=== PATIENT | male | born 1965 | race Caucasian/White ===

== ENCOUNTER 2021-05-28 09:30 | Inpatient (IN) ==
--- NOTE | 2021-05-28 09:35 | Emergency Department Note ---
Impression & Plan DKA (diabetic ketoacidosis), Hyperlipidemia, Pneumonia due to COVID-19 virus, MARYLIN (acute kidney injury), Nausea & vomiting, Acute dehydration ED Provider Note NAME: TAMIR CAVAZOS AGE: 56 SEX: M : 1965 ARRIVES VIA: Ambulance INFORMANT: Patient, ED PROVIDER(S): Quan Mendez MD Chief Complaint: Weakness, nausea, vomiting, shortness of breath HPI: Patient does present with the above complaints. The patient states that he has had symptoms for approximate 10 to 12 days but recently tested positive for Covid approximately 7 days ago. Does feel as though he is short of breath. Patient has had increasing weakness decreased appetite and has had associated nausea vomiting and diarrhea. Patient has any prior history of DVT or PE. No recent travel. The patient is vaccinated for COVID-19 but not booster flu. Patient was trying to take medications at home does not think he has been able to keep them down well. The patient is not had any blood in the vomit or stool. Patient denies any abdominal pain. Patient denies any prior heart or lung history. Patient is a non-smoker and does not wear oxygen. No prior history of recent surgeries or procedures. ROS: See HPI for pertinent positives and negatives. A total of 10 systems were reviewed and otherwise negative. Past medical history: See below Surgical history: See below Social history: See below Physical Exam: GENERAL: Fatigued in appearance,NAD, wearing glasses, wearing a mask, non-toxic. EYE EXAM: Normal conjunctiva. PERRL, no anisocoria and EOM's grossly intact w/o pain. OROPHARYNX: Moist mucus membranes. Grossly normal dentition. NECK: Supple, no nuchal rigidity, no adenopathy, non-tender. No signs of meningismus. LUNGS: Clear to auscultation. Normal chest wall mechanics. HEART: Tachycardic and regular, no MRG. ABDOMEN: Abdomen soft, non-tender, normo-active bowel sounds, no masses, no rebound or guarding. BACK: No CVA TTP. SKIN: No rashes and no bruising. UPPER EXTREMITIES: Upper extremities are grossly normal. LOWER EXTREMITIES: Grossly normal, no edema. Negative Homans' sign bilaterally NEURO EXAM: A&O x3, cranial nerves II-XII grossly intact, normal speech, moves all 4 extremities on command w/o issue. Differential diagnoses: Infection, dehydration, metabolic abnormality, hypo/hyperglycemia, electrolyte disturbance, anemia, hypoxia, cardiac sources, intracerebral event, toxicologic, neurologic, as well as other pathologies. Course: Patient was seen and evaluated the bedside. Full history physical exam was performed. EKG interpreted by me Sinus tachycardia, rate of 120, normal intervals, left axis deviation. Imaging Studies: See Below Cardiac monitoring: An order was placed for continuous cardiac monitoring. The monitor shows a rate of 115 with tachycardic and regular rhythm. MDM: Patient does present for nausea vomiting and recent Covid illness. Blood work was obtained the patient was treated symptomatically. The patient received 800 cc of IV fluids in route. The patient was ordered additional 1500. The patient has a normal white count and normal hemoglobin with a normal platelet count. The patient blood work does show concern for anion gap metabolic acidosis with a bicarb of 6. Patient does have elevated blood glucose. Given this I did order DKA protocols including an insulin drip. Upon reassessment the patient states that he was feeling relatively well. Urinalysis does not show evidence of infection but does show ketones. Patient does have positive Covid. Troponin not detectable. Lactate is 3.5. I believe that the patient's DKA is likely the contributory factor of the patient's shortness of breath and somewhat the Covid. Believe PE to be less likely as the patient has no signs or stigmata of DVT on exam. The patient is not hypoxic. Patient's heart rate has improved with IV fluids. The patient was ordered twice maintenance with replacement of KCl. I did speak with the on-call hospitalist Dr. Travis and the patient was admitted to the medicine service. VBG did resulted was 7.05. PCO2 of 29. Additional IV fluids ordered Critical Care: I have personally spent 75 minutes of critical care time in direct management of this patient. This includes bedside care, interpretation of diagnostic studies, and testing, discussion with consultants, patient, and family members, and other require inpatient management activities. This 75 minutes is in excess of all separately billable procedures. 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 [employer] Feels Safe at Home: Yes Immunizations: Vaccinated for COVID-19 but without booster or flu vaccination Home Meds Home Medications Medication Instructions Recorded Confirmed aspirin 81 mg tablet 81 mg PO DAILY 05/28/21 05/28/21 metformin 500 mg tablet,extended 500 mg PO BID 05/28/21 05/28/21 release 24 hr rosuvastatin 5 mg tablet 5 mg PO DAILY 05/28/21 05/28/21 Results & Data (ED) Vital Signs Vital Signs - 24 hr 05/28/21 09:44 05/28/21 09:50 05/28/21 09:51 Temperature 36.8 C Temperature Source Oral Pulse Rate 119 H 115 H 115 H Pulse Rate [Apical] 119 H Pulse Rate from SpO2 Sensor Respiratory Rate 22 20 22 Respiratory Effort / Characteristics Non-Labored Spontaneous Respiratory Depth Normal Respiratory Pattern Regular Blood Pressure 137/83 137/83 Blood Pressure [Right Arm] 137/83 Blood Pressure Mean 101 101 Blood Pressure Mean [Right Arm] 101 Pulse Oximetry 97 96 100 Oxygen Delivery Method Room Air Room Air Room Air Sepsis Recent Fever Within 48 Hours No Sepsis New/Unexplained Change in Mental Status No Sepsis Action Taken by Nursing No Action Required 05/28/21 10:07 05/28/21 10:30 05/28/21 11:30 Temperature Temperature Source Pulse Rate 113 H 111 H Pulse Rate [Apical] Pulse Rate from SpO2 Sensor 113 H 112 H Respiratory Rate 19 18 Respiratory Effort / Characteristics Respiratory Depth Respiratory Pattern Blood Pressure 134/81 149/95 H Blood Pressure [Right Arm] Blood Pressure Mean 98 113 Blood Pressure Mean [Right Arm] Pulse Oximetry 98 99 Oxygen Delivery Method Sepsis Recent Fever Within 48 Hours Sepsis New/Unexplained Change in Mental Status Sepsis Action Taken by Nursing 05/28/21 12:00 05/28/21 12:30 05/28/21 13:00 Temperature Temperature Source Pulse Rate 116 H 113 H 116 H Pulse Rate [Apical] Pulse Rate from SpO2 Sensor 119 H 113 H 116 H Respiratory Rate 22 20 21 Respiratory Effort / Characteristics Respiratory Depth Respiratory Pattern Blood Pressure 150/90 H 142/93 H Blood Pressure [Right Arm] Blood Pressure Mean 110 109 Blood Pressure Mean [Right Arm] Pulse Oximetry 100 99 99 Oxygen Delivery Method Sepsis Recent Fever Within 48 Hours Sepsis New/Unexplained Change in Mental Status Sepsis Action Taken by Nursing 05/28/21 13:30 Temperature Temperature Source Pulse Rate 112 H Pulse Rate [Apical] Pulse Rate from SpO2 Sensor 111 H Respiratory Rate 16 Respiratory Effort / Characteristics Respiratory Depth Respiratory Pattern Blood Pressure 130/95 Blood Pressure [Right Arm] Blood Pressure Mean 106 Blood Pressure Mean [Right Arm] Pulse Oximetry 99 Oxygen Delivery Method Sepsis Recent Fever Within 48 Hours Sepsis New/Unexplained Change in Mental Status Sepsis Action Taken by Jail Medications Current Medication List: was personally reviewed by me Laboratory Data Attestation: I reviewed the patient's lab results. Result diagrams: 05/28/21 09:50 05/28/21 11:06 Lab Results 05/28/21 05/28/21 05/28/21 Range/Units 09:50 09:50 09:58 WBC 8.45 (4.8-10.8) K/uL RBC 5.56 (4.7-6.1) M/uL Hgb 17.7 (14.0-18.0) g/dL Hct 52.5 H (42-52) % MCV 94.4 (80-100) fL MCH 31.8 (25-34) pg MCHC 33.7 (32-36) g/dL RDW Std Deviation 44.4 (36.4-46.3) fL RDW Coeff of Davon 12.7 (11.5-14.5) % Plt Count 252 (130-400) K/uL MPV 10.8 H (7.4-10.4) fL Immature Gran % (Auto) 1.5 % Neut % (Auto) 79.3 % Lymph % (Auto) 13.7 % [place] % (Auto) 5.4 % Eos % (Auto) 0.0 % Baso % (Auto) 0.1 % Neut # (Auto) 6.69 H (1.4-6.5) K/uL Lymph # (Auto) 1.16 L (1.2-3.4) K/uL [place] # (Auto) 0.46 (0.11-0.59) K/uL Eos # (Auto) 0.00 (0-0.5) K/uL Baso # (Auto) 0.01 (0-0.2) K/uL Immature Gran # (Auto) 0.13 H (0.00-0.02) K/uL VBG pH (7.36-7.41) VBG pCO2 (38-50) mmHg VBG pO2 mmHg VBG HCO3 mmol/L VBG O2 Saturation % VBG Base Excess mEq/L Sodium 137 (136-145) mmol/L Potassium 4.2 (3.5-5.1) mmol/L Chloride 103 (98-107) mmol/L Carbon Dioxide 6 L* (21-32) mmol/L Anion Gap 28.0 H (3-11) BUN 15 (7-18) mg/dl Creatinine 1.52 H (0.6-1.4) mg/dl Est Cr Clr Drug Dosing 63.1 ml/min Est GFR ( Amer) 58.5 ml/min Est GFR (Non-Af Amer) 50.5 ml/min BUN/Creatinine Ratio 9.8 L (10-20) Glucose 454 H* (70-99) mg/dl POC Glucose (70-99) mg/dl Osmolality 341 H (280-300) mOsm/kg Lactate (0.4-2.0) mmol/L Calcium 9.1 (8.5-10.1) mg/dl Phosphorus (2.5-4.9) mg/dl Magnesium 2.1 (1.8-2.4) mg/dl Total Bilirubin 0.4 (0.2-1) mg/dl AST 12 L (15-37) U/L ALT 30 (12-78) Alkaline Phosphatase 102 (45-117) U/L Troponin I < 0.015 (0-0.045) ng/ml Total Protein 8.4 H (6.4-8.2) gm/dl Albumin 3.6 (3.4-5.0) gm/dl Globulin 4.8 H (2.5-4.0) gm/dl Albumin/Globulin Ratio 0.7 L (0.9-2) Beta-Hydroxybutyric Acd Not Reportable TSH 1.390 (0.300-4.500) uIu/ml Urine Color Urine Appearance (Clear) Urine pH (4.5-7.5) Ur Specific Norco (1.000-1.030) Urine Protein (Negative) Urine Glucose (UA) (Negative) Urine Ketones (Negative) Urine Blood (Negative) Urine Nitrite (Negative) Urine Bilirubin (Negative) Urine Urobilinogen (Negative) Ur Leukocyte Esterase (Negative) SARS-CoV-2 (PCR) (Negative) Influenza Type A (PCR) (Neg) Influenza Type B (PCR) (Neg) RSV (RT-PCR) (Neg) 05/28/21 05/28/21 05/28/21 Range/Units 11:02 11:06 11:06 WBC (4.8-10.8) K/uL RBC (4.7-6.1) M/uL Hgb (14.0-18.0) g/dL Hct (42-52) % MCV (80-100) fL MCH (25-34) pg MCHC (32-36) g/dL RDW Std Deviation (36.4-46.3) fL RDW Coeff of Davon (11.5-14.5) % Plt Count (130-400) K/uL MPV (7.4-10.4) fL Immature Gran % (Auto) % Neut % (Auto) % Lymph % (Auto) % [place] % (Auto) % Eos % (Auto) % Baso % (Auto) % Neut # (Auto) (1.4-6.5) K/uL Lymph # (Auto) (1.2-3.4) K/uL [place] # (Auto) (0.11-0.59) K/uL Eos # (Auto) (0-0.5) K/uL Baso # (Auto) (0-0.2) K/uL Immature Gran # (Auto) (0.00-0.02) K/uL VBG pH (7.36-7.41) VBG pCO2 (38-50) mmHg VBG pO2 mmHg VBG HCO3 mmol/L VBG O2 Saturation % VBG Base Excess mEq/L Sodium 137 (136-145) mmol/L Potassium 4.6 (3.5-5.1) mmol/L Chloride 105 (98-107) mmol/L Carbon Dioxide 5 L* (21-32) mmol/L Anion Gap 27.0 H (3-11) BUN 14 (7-18) mg/dl Creatinine 1.26 (0.6-1.4) mg/dl Est Cr Clr Drug Dosing 76.1 ml/min Est GFR ( Amer) 73.4 ml/min Est GFR (Non-Af Amer) 63.3 ml/min BUN/Creatinine Ratio 11.2 (10-20) Glucose 479 H* (70-99) mg/dl POC Glucose 417 H* (70-99) mg/dl Osmolality (280-300) mOsm/kg Lactate 3.5 H* (0.4-2.0) mmol/L Calcium 8.6 (8.5-10.1) mg/dl Phosphorus 4.9 (2.5-4.9) mg/dl Magnesium (1.8-2.4) mg/dl Total Bilirubin (0.2-1) mg/dl AST (15-37) U/L ALT (12-78) Alkaline Phosphatase (45-117) U/L Troponin I (0-0.045) ng/ml Total Protein (6.4-8.2) gm/dl Albumin (3.4-5.0) gm/dl Globulin (2.5-4.0) gm/dl Albumin/Globulin Ratio (0.9-2) Beta-Hydroxybutyric Acd TSH (0.300-4.500) uIu/ml Urine Color Urine Appearance (Clear) Urine pH (4.5-7.5) Ur Specific Nor[place] (1.000-1.030) Urine Protein (Negative) Urine Glucose (UA) (Negative) Urine Ketones (Negative) Urine Blood (Negative) Urine Nitrite (Negative) Urine Bilirubin (Negative) Urine Urobilinogen (Negative) Ur Leukocyte Esterase (Negative) SARS-CoV-2 (PCR) (Negative) Influenza Type A (PCR) (Neg) Influenza Type B (PCR) (Neg) RSV (RT-PCR) (Neg) 05/28/21 05/28/21 05/28/21 Range/Units 11:06 11:06 11:58 WBC (4.8-10.8) K/uL RBC (4.7-6.1) M/uL Hgb (14.0-18.0) g/dL Hct (42-52) % MCV (80-100) fL MCH (25-34) pg MCHC (32-36) g/dL RDW Std Deviation (36.4-46.3) fL RDW Coeff of Davon (11.5-14.5) % Plt Count (130-400) K/uL MPV (7.4-10.4) fL Immature Gran % (Auto) % Neut % (Auto) % Lymph % (Auto) % [place] % (Auto) % Eos % (Auto) % Baso % (Auto) % Neut # (Auto) (1.4-6.5) K/uL Lymph # (Auto) (1.2-3.4) K/uL [place] # (Auto) (0.11-0.59) K/uL Eos # (Auto) (0-0.5) K/uL Baso # (Auto) (0-0.2) K/uL Immature Gran # (Auto) (0.00-0.02) K/uL VBG pH 7.05 L 7.05 L (7.36-7.41) VBG pCO2 29 L (38-50) mmHg VBG pO2 41 mmHg VBG HCO3 8 mmol/L VBG O2 Saturation 67.0 % VBG Base Excess -21.5 mEq/L Sodium (136-145) mmol/L Potassium (3.5-5.1) mmol/L Chloride (98-107) mmol/L Carbon Dioxide (21-32) mmol/L Anion Gap (3-11) BUN (7-18) mg/dl Creatinine (0.6-1.4) mg/dl Est Cr Clr Drug Dosing ml/min Est GFR ( Amer) ml/min Est GFR (Non-Af Amer) ml/min BUN/Creatinine Ratio (10-20) Glucose (70-99) mg/dl POC Glucose 406 H* (70-99) mg/dl Osmolality (280-300) mOsm/kg Lactate (0.4-2.0) mmol/L Calcium (8.5-10.1) mg/dl Phosphorus (2.5-4.9) mg/dl Magnesium (1.8-2.4) mg/dl Total Bilirubin (0.2-1) mg/dl AST (15-37) U/L ALT (12-78) Alkaline Phosphatase (45-117) U/L Troponin I (0-0.045) ng/ml Total Protein (6.4-8.2) gm/dl Albumin (3.4-5.0) gm/dl Globulin (2.5-4.0) gm/dl Albumin/Globulin Ratio (0.9-2) Beta-Hydroxybutyric Acd TSH (0.300-4.500) uIu/ml Urine Color Urine Appearance (Clear) Urine pH (4.5-7.5) Ur Specific Norco (1.000-1.030) Urine Protein (Negative) Urine Glucose (UA) (Negative) Urine Ketones (Negative) Urine Blood (Negative) Urine Nitrite (Negative) Urine Bilirubin (Negative) Urine Urobilinogen (Negative) Ur Leukocyte Esterase (Negative) SARS-CoV-2 (PCR) (Negative) Influenza Type A (PCR) (Neg) Influenza Type B (PCR) (Neg) RSV (RT-PCR) (Neg) 05/28/21 05/28/21 05/28/21 Range/Units 12:48 13:01 13:26 WBC (4.8-10.8) K/uL RBC (4.7-6.1) M/uL Hgb (14.0-18.0) g/dL Hct (42-52) % MCV (80-100) fL MCH (25-34) pg MCHC (32-36) g/dL RDW Std Deviation (36.4-46.3) fL RDW Coeff of Davon (11.5-14.5) % Plt Count (130-400) K/uL MPV (7.4-10.4) fL Immature Gran % (Auto) % Neut % (Auto) % Lymph % (Auto) % [place] % (Auto) % Eos % (Auto) % Baso % (Auto) % Neut # (Auto) (1.4-6.5) K/uL Lymph # (Auto) (1.2-3.4) K/uL [place] # (Auto) (0.11-0.59) K/uL Eos # (Auto) (0-0.5) K/uL Baso # (Auto) (0-0.2) K/uL Immature Gran # (Auto) (0.00-0.02) K/uL VBG pH (7.36-7.41) VBG pCO2 (38-50) mmHg VBG pO2 mmHg VBG HCO3 mmol/L VBG O2 Saturation % VBG Base Excess mEq/L Sodium (136-145) mmol/L Potassium (3.5-5.1) mmol/L Chloride (98-107) mmol/L Carbon Dioxide (21-32) mmol/L Anion Gap (3-11) BUN (7-18) mg/dl Creatinine (0.6-1.4) mg/dl Est Cr Clr Drug Dosing ml/min Est GFR ( Amer) ml/min Est GFR (Non-Af Amer) ml/min BUN/Creatinine Ratio (10-20) Glucose (70-99) mg/dl POC Glucose 389 H* (70-99) mg/dl Osmolality (280-300) mOsm/kg Lactate 3.8 H* (0.4-2.0) mmol/L Calcium (8.5-10.1) mg/dl Phosphorus (2.5-4.9) mg/dl Magnesium (1.8-2.4) mg/dl Total Bilirubin (0.2-1) mg/dl AST (15-37) U/L ALT (12-78) Alkaline Phosphatase (45-117) U/L Troponin I (0-0.045) ng/ml Total Protein (6.4-8.2) gm/dl Albumin (3.4-5.0) gm/dl Globulin (2.5-4.0) gm/dl Albumin/Globulin Ratio (0.9-2) Beta-Hydroxybutyric Acd TSH (0.300-4.500) uIu/ml Urine Color Urine Appearance (Clear) Urine pH (4.5-7.5) Ur Specific [place] (1.000-1.030) Urine Protein (Negative) Urine Glucose (UA) (Negative) Urine Ketones (Negative) Urine Blood (Negative) Urine Nitrite (Negative) Urine Bilirubin (Negative) Urine Urobilinogen (Negative) Ur Leukocyte Esterase (Negative) SARS-CoV-2 (PCR) POSITIVE A* (Negative) Influenza Type A (PCR) Negative (Neg) Influenza Type B (PCR) Negative (Neg) RSV (RT-PCR) Negative (Neg) 05/28/21 Range/Units 13:46 WBC (4.8-10.8) K/uL RBC (4.7-6.1) M/uL Hgb (14.0-18.0) g/dL Hct (42-52) % MCV (80-100) fL MCH (25-34) pg MCHC (32-36) g/dL RDW Std Deviation (36.4-46.3) fL RDW Coeff of Davon (11.5-14.5) % Plt Count (130-400) K/uL MPV (7.4-10.4) fL Immature Gran % (Auto) % Neut % (Auto) % Lymph % (Auto) % [place] % (Auto) % Eos % (Auto) % Baso % (Auto) % Neut # (Auto) (1.4-6.5) K/uL Lymph # (Auto) (1.2-3.4) K/uL [place] # (Auto) (0.11-0.59) K/uL Eos # (Auto) (0-0.5) K/uL Baso # (Auto) (0-0.2) K/uL Immature Gran # (Auto) (0.00-0.02) K/uL VBG pH (7.36-7.41) VBG pCO2 (38-50) mmHg VBG pO2 mmHg VBG HCO3 mmol/L VBG O2 Saturation % VBG Base Excess mEq/L Sodium (136-145) mmol/L Potassium (3.5-5.1) mmol/L Chloride (98-107) mmol/L Carbon Dioxide (21-32) mmol/L Anion Gap (3-11) BUN (7-18) mg/dl Creatinine (0.6-1.4) mg/dl Est Cr Clr Drug Dosing ml/min Est GFR ( Amer) ml/min Est GFR (Non-Af Amer) ml/min BUN/Creatinine Ratio (10-20) Glucose (70-99) mg/dl POC Glucose (70-99) mg/dl Osmolality (280-300) mOsm/kg Lactate (0.4-2.0) mmol/L Calcium (8.5-10.1) mg/dl Phosphorus (2.5-4.9) mg/dl Magnesium (1.8-2.4) mg/dl Total Bilirubin (0.2-1) mg/dl AST (15-37) U/L ALT (12-78) Alkaline Phosphatase (45-117) U/L Troponin I (0-0.045) ng/ml Total Protein (6.4-8.2) gm/dl Albumin (3.4-5.0) gm/dl Globulin (2.5-4.0) gm/dl Albumin/Globulin Ratio (0.9-2) Beta-Hydroxybutyric Acd TSH (0.300-4.500) uIu/ml Urine Color Yellow Urine Appearance Clear (Clear) Urine pH 5.0 (4.5-7.5) Ur Specific [place] 1.031 H (1.000-1.030) Urine Protein 2+ H (Negative) Urine Glucose (UA) 3+ H (Negative) Urine Ketones 4+ H (Negative) Urine Blood 1+ H (Negative) Urine Nitrite Negative (Negative) Urine Bilirubin Negative (Negative) Urine Urobilinogen Negative (Negative) Ur Leukocyte Esterase Negative (Negative) SARS-CoV-2 (PCR) (Negative) Influenza Type A (PCR) (Neg) Influenza Type B (PCR) (Neg) RSV (RT-PCR) (Neg) Administered Medications Insulin Human Regular 250 (units/ Sodium Chloride) 250 mls @ 8.5 mls/hr IV .Q24H [facility]; Protocol Stop: 06/27/21 10:44 Last Admin: 05/28/21 11:13 Dose: 8.5 units/hr, 8.5 mls/hr Documented by: [id number] Cosigned by: [id number] Potassium Chloride/Sodium Chloride (1/2 Nss + 20meq Kcl 1000ml) 20 meq in 1,000 mls @ 250 mls/hr IV .Q4H [facility] Stop: 06/27/21 10:59 Last Admin: 05/28/21 11:55 Dose: 250 mls/hr Documented by: [id number] Insulin Aspart (Insulin Aspart Per Unit) 0 units SC ACHS [facility] Stop: 06/27/21 11:29 Last Admin: 05/28/21 12:13 Dose: Not Given Documented by: [id number] Cosigned by: [id number] Discontinued Medications Sodium Chloride (Nss 1000ml) 1,000 mls @ 999 mls/hr IV .Q1H1M [facility] Stop: 05/28/21 11:00 Last Admin: 05/28/21 09:52 Dose: 999 mls/hr Documented by: [id number] Sodium Chloride (Nss) 500 mls @ 999 mls/hr IV .Q31M [facility] Stop: 05/28/21 10:30 Last Admin: 05/28/21 10:11 Dose: 999 mls/hr Documented by: [id number] Insulin Human Regular (Novolin-R Bolus From Bag) 8 units IV ONE ONE Stop: 05/28/21 11:01 Last Admin: 05/28/21 11:13 Dose: 8 units Documented by: [id number] Cosigned by: [id number] Ondansetron HCl (Ondansetron Inj 2 Mg/Ml 2 Ml Vial) 4 mg IV NOW STA Stop: 05/28/21 09:47 Last Admin: 05/28/21 10:10 Dose: 4 mg Documented by: [id number] Imaging Data Radiologist's Impression: Chest X-Ray 05/28/21 09:46 XR chest 1V portable HISTORY: 56 years-old Male covid acute shortness of breath. COVID Positive. COMPARISON: None TECHNIQUE: Portable AP view of the chest FINDINGS: The cardiomediastinal and hilar silhouettes are within normal limits. There is no pneumothorax, pleural effusion or overt pulmonary edema. Subtle ill-defined peripheral predominant additional opacities of the mid to lower lung zones. The bones appear grossly intact. IMPRESSION: Subtle ill-defined interstitial opacities within the mid to lower lung zones is suspicious for developing viral pneumonia. ACT 112: Negative or not required by law. The above report was generated using voice recognition software. It may contain grammatical, syntax or spelling errors. Electronically signed by: Leonid Cardona M.D. 05/28/2021 10:58 AM Discharge Plan Visit Data Chief Complaint: Illness ED Provider: Quan Mendez Discharge Problem: DKA (diabetic ketoacidosis), Hyperlipidemia, Pneumonia due to COVID-19 virus, MARYLIN (acute kidney injury), Nausea & vomiting, Acute dehydration Forms Stand Alone Forms: My [facility] Prescriptions Prescriptions: No Action metformin 500 mg tablet extended release 24 hr 500 mg PO BID RF: 0 rosuvastatin 5 mg tablet 5 mg PO DAILY RF: 0 aspirin 81 mg Tablet 81 mg PO DAILY RF: 0 Referrals Referrals: PCP,NO [Primary Care Provider] - Discharge Problem: DKA (diabetic ketoacidosis) Qualifiers: Diabetes mellitus type: type 2 Diabetes mellitus complication detail: without coma Qualified Code(s): E11.10 - Type 2 diabetes mellitus with ketoacidosis without coma Hyperlipidemia Qualifiers: Hyperlipidemia type: unspecified Qualified Code(s): E78.5 - Hyperlipidemia, unspecified Nausea & vomiting Qualifiers: Vomiting type: unspecified Qualified Code(s): R11.2 - Nausea with vomiting, unspecified
[2021-05-28] MEDS ORDERED: ONDANSETRON INJ 2 MG/ML 2 ML VIAL IV STA (09:46)
[2021-05-28 09:57] LABS: Hematocrit (blood only) 52.5 % (42-52); Hemoglobin 17.7 g/dL (14.0-18.0); Mean Corpuscular Hemoglobin 31.8 pg (25-34); Mean Corpuscular Hgb Conc 33.7 g/dL (32-36); Mean Corpuscular Volume 94.4 fL (80-100); Mean Platelet Volume 10.8 fL (7.4-10.4); Platelet Count 252 K/uL (130-400); RDW Coefficient of Variation 12.7 % (11.5-14.5); RDW Standard Deviation 44.4 fL (36.4-46.3); Red Blood Count 5.56 M/uL (4.7-6.1); White Blood Count 8.45 K/uL (4.8-10.8)
[2021-05-28] MEDS ORDERED: SODIUM CHLORIDE 0.9% 1000ML 1,000 ML IV SCH (10:00)
[2021-05-28] MEDS ORDERED: SODIUM CHLORIDE 0.9% 500 ML IV SCH (10:00)
[2021-05-28 10:18] LABS: Basophils # (auto) 0.01 K/uL (0-0.2); Basophils % (auto) 0.1 %; Immature Granulocytes # (auto) 0.13 K/uL (0.00-0.02); Immature Granulocytes % (auto) 1.5 %; Lymphocytes # (auto) 1.16 K/uL (1.2-3.4); Lymphocytes % (auto) 13.7 %; Monocytes # (auto) 0.46 K/uL (0.11-0.59); Monocytes % (auto) 5.4 %; Neutrophils # (auto) 6.69 K/uL (1.4-6.5); Neutrophils % (auto) 79.3 %
[2021-05-28 10:38] LABS: Alanine Aminotransferase 30 (12-78); Albumin Globulin Ratio 0.7 (0.9-2); Albumin Level 3.6 gm/dl (3.4-5.0); Alkaline Phosphatase 102 U/L (45-117); Aspartate Aminotransferase 12 U/L (15-37); BUN Creatinine Ratio 9.8 (10-20); Bilirubin,Total 0.4 mg/dl (0.2-1); Blood Urea Nitrogen 15 mg/dl (7-18); Calcium 9.1 mg/dl (8.5-10.1); Carbon Dioxide 6 mmol/L (21-32); Chloride 103 mmol/L (98-107); Creatinine Clr Calc Pharmacy 63.1 ml/min; Est GFR (African American) 58.5 ml/min; Est GFR (Non-African American) 50.5 ml/min; Globulin 4.8 gm/dl (2.5-4.0); Glucose 454 mg/dl (70-99); Magnesium 2.1 mg/dl (1.8-2.4); Potassium 4.2 mmol/L (3.5-5.1); Sodium 137 mmol/L (136-145); Total Protein 8.4 gm/dl (6.4-8.2); Troponin I < 0.015 ng/ml (0-0.045)
[2021-05-28] MEDS ORDERED: STAT IV Infusion **Titration per Protocol STA ×2 (10:40)
[2021-05-28] MEDS ORDERED: DKA GOAL RANGE 150-250 mg/dl ONE (10:40)
[2021-05-28] MEDS ORDERED: PENDING D5 1/2NS+20mEq KCL IVF SCH (10:45)
[2021-05-28] MEDS ORDERED: PENDING 1/2NSS+40mEq KCL IVF SCH (10:45)
--- NOTE | 2021-05-28 10:59 | XRay Report ---
XR chest 1V portable HISTORY: 56 years-old Male covid acute shortness of breath. COVID Positive. COMPARISON: None TECHNIQUE: Portable AP view of the chest FINDINGS: The cardiomediastinal and hilar silhouettes are within normal limits. There is no pneumothorax, pleur al effusion or overt pulmonary edema. Subtle ill-defined peripheral predominant additional opacities of the mid to lower lung zones. The bones appear grossly intact. IMPRESSION: Subtle ill-defined interstitial opacities within the mid to lower lung zones is suspiciou s for developing viral pneumonia. ACT 112: Negative or not required by law. The above report was generated using voice recognition software. It may contain grammatical, syntax o r spelling errors. Electronically signed by: Leonid Cardona M.D. 05/28/2021 10:58 AM
[2021-05-28] MEDS ORDERED: NovoLIN-R BOLUS FROM BAG IV ONE (11:00)
--- NOTE | 2021-05-28 11:05 | History & Physical Report ---
Date of Service May 28, 2021 Assessment & Plan (1) DKA (diabetic ketoacidosis): Plan: Patient with diagnosis of type 2 diabetes in the summer 2021, previously was morbidly obese and has lost 140 pounds in the past 1 to 2 years Was on Metformin alone at home Now with Covid-19 with very poor appetite, nausea/vomiting for 5 to 6 days as likely trigger of DKA Presents with severe dehydration, acute kidney injury, serum bicarbonate of 6 with anion gap of 28, VBG pending at the time of admission, glucose in the mid four hundreds -Admit to PCU -Start insulin drip after insulin bolus, Accu-Cheks as per protocol with insulin drip for DKA -Continue IV fluids and add potassium chloride, add D5 when glucose less than 250 -Glycemic consult ordered-appreciate pharmacy assistance -Follow serial BMP, magnesium, phosphorus, VBG and replace electrolytes when needed -He will likely need insulin upon discharge and should follow-up with endocrinology -Check hemoglobin A1c in the morning -Follow-up urinalysis to ensure no UTI (2) Nausea & vomiting: Plan: Seems somewhat improved after receiving IV Zofran -Secondary to Covid-19 -Zofran IV as needed -Clear liquids diet only for now (3) MARYLIN (acute kidney injury): Plan: Secondary to severe dehydration and DKA Continue IV fluids Follow serial BMP (4) Pneumonia due to COVID-19 virus: Plan: With bilateral developing pneumonia on chest x-ray, very mild nonproductive cough, pulse ox 99% on room air No need for dexamethasone, he is outside the window for Remdesivir Start incentive spirometry Observe for worsening symptoms and/or hypoxia He is at day 10 or 11 of his illness-will place on Covid precautions for now, but as he improves with his DKA, can likely come off precautions-would discussed with infection control Suspect his tachycardia is secondary to severe dehydration and DKA, I do not suspect pulmonary embolism. His oxygen levels are 99% on room air, he does not have chest pain, troponin is negative, and he has another reason for tachycardia. (5) DM2 (diabetes mellitus, type 2): Plan: As above, only on metformin as an outpatient He does not know what his last hemoglobin A1c was Insulin management as above Hold home metformin Hemoglobin A1c in the morning (6) Hyperlipidemia: Plan: Continue home rosuvastatin Plan: DVT prophylaxis-SCDs, Lovenox 40 mg once daily until renal function improves and then can increase to twice daily Disposition-admit to PCU Full code I will call his to discuss his condition at his request History of Present Illness Chief Complaint: Nausea/vomiting, shortness of breath, Covid Primary Care Provider: NO PCP This patient is a 56-year-old male with history of DM 2 on Metformin, hyperlipidemia, who was diagnosed with Covid-19 about 7 days ago after having symptoms for the last 10 to 12 days. He has had increasing weakness, decreased appetite, nausea/vomiting, but no diarrhea and shortness of breath. He has a mild cough. He is vaccinated for Covid-19 but has not had a booster. There is no blood in his vomit or stool, no abdominal pains. No urinary symptoms. In the ER, he was found to be in DKA with a blood sugar in the mid 400s, a serum bicarbonate of 6, and an anion gap of 28. He had a acute kidney injury with creatinine 1.52, lymphopenia, normal TSH and LFTs, negative troponin. He was tachycardic in a sinus rhythm but had a pulse ox of 99% on room air, no chest pain. Blood pressures were normal. Chest x-ray showed subtle ill-defined interstitial opacities in mid to lower tami g zones suspicious for developing viral pneumonia. He was given a total of 1.5 L of IV fluids, started on insulin drip after insulin bolus, and given IV Zofran. He will be admitted for DKA in the setting of Covid-19. Home Medications Medication Instructions Recorded Confirmed Type metformin 500 mg tablet,extended 500 mg PO BID 05/28/21 05/28/21 History release 24 hr rosuvastatin 5 mg tablet 5 mg PO DAILY 05/28/21 05/28/21 History Past Med/Surg History Medical History DM2 (diabetes mellitus, type 2) Hyperlipidemia Surgical History No pertinent past surgical history Family History (Updated 05/28/21 @ 11:53 by Chelsi Travis MD) Mother Stroke Father , Liver cancer Cancer Social History (Updated 05/28/21 @ 11:53 by Chelsi Travis MD) Smoking Status: Never smoker Hx Alcohol Use: Yes Alcohol Intake Frequency: 2-4 x/Month Hx Substance Use: No Preferred Language: Greenlandic marital status: Current Living Situation: Spouse current occupational status: employed 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 [employer] Feels Safe at Home: Yes Review of Systems Review of Systems: All systems reviewed & are unremarkable except as noted in HPI & below Has chronic numbness of the bilateral lower extremities in the calves Physical Exam Constitutional: WD/WN, vitals as above + ill appearing Eyes: PERRL, conjunctivae normal, anicteric sclerae ENMT: Ears: no hearing impairment and no external ear abnormality Nose: no external nose abnormality Mouth: + oral mucosal abnormality (Dry mucous membranes) Neck: trachea midline, no thyromegaly Respiratory: normal respiratory effort, lungs clear to auscultation Cardiovascular: Rate/Rhythm: regular rhythm and + tachycardic Heart Sounds: no murmur Extremities: no edema Chest (Breasts): Chest: normal inspection of chest Gastrointestinal (Abdomen): normal bowel sounds, soft, nontender, no hepatosplenomegaly Musculoskeletal: Extremities: extremities normal to inspection; no cyanosis and no clubbing Skin: no rashes, warm and dry (No wounds, a few scars on anterior tibia bilaterally) Neurologic: moves all extremities and awake; no focal motor deficits Psychiatric: A+Ox3, euthymic affect Lymphatic: no lymphedema Results & Data Results & Data ([facility]) Vital Signs (Past 12 Hours) Vital Signs Temp Pulse Pulse Resp BP BP Pulse Ox 05/28/21 10:30 111 H 18 134/81 99 05/28/21 10:07 113 H 19 98 05/28/21 09:51 115 H 22 137/83 100 05/28/21 09:50 115 H 20 96 05/28/21 09:44 36.8 C 119 H 119 H 22 137/83 137/83 97 Laboratory Results 05/28/21 05/28/21 05/28/21 Range/Units 11:06 11:06 11:06 WBC (4.8-10.8) K/uL RBC (4.7-6.1) M/uL Hgb (14.0-18.0) g/dL Hct (42-52) % MCV (80-100) fL MCH (25-34) pg MCHC (32-36) g/dL RDW Std Deviation (36.4-46.3) fL RDW Coeff of Davon (11.5-14.5) % Plt Count (130-400) K/uL MPV (7.4-10.4) fL Immature Gran % (Auto) % Neut % (Auto) % Lymph % (Auto) % [place] % (Auto) % Eos % (Auto) % Baso % (Auto) % Neut # (Auto) (1.4-6.5) K/uL Lymph # (Auto) (1.2-3.4) K/uL [place] # (Auto) (0.11-0.59) K/uL Eos # (Auto) (0-0.5) K/uL Baso # (Auto) (0-0.2) K/uL Immature Gran # (Auto) (0.00-0.02) K/uL VBG pH Pending Pending VBG pCO2 Pending VBG pO2 Pending VBG HCO3 Pending VBG O2 Saturation Pending VBG Base Excess Pending Sodium Pending (136-145) mmol/L Potassium Pending (3.5-5.1) mmol/L Chloride Pending (98-107) mmol/L Carbon Dioxide Pending (21-32) mmol/L Anion Gap Pending (3-11) BUN Pending (7-18) mg/dl Creatinine Pending (0.6-1.4) mg/dl Est Cr Clr Drug Dosing Pending ml/min Est GFR ( Amer) Pending ml/min Est GFR (Non-Af Amer) Pending ml/min BUN/Creatinine Ratio Pending (10-20) Glucose Pending (70-99) mg/dl POC Glucose (70-99) mg/dl Osmolality (280-300) mOsm/kg Lactate Calcium Pending (8.5-10.1) mg/dl Phosphorus Pending Magnesium (1.8-2.4) mg/dl Total Bilirubin (0.2-1) mg/dl AST (15-37) U/L ALT (12-78) Alkaline Phosphatase (45-117) U/L Troponin I (0-0.045) ng/ml Total Protein (6.4-8.2) gm/dl Albumin (3.4-5.0) gm/dl Globulin (2.5-4.0) gm/dl Albumin/Globulin Ratio (0.9-2) Beta-Hydroxybutyric Acd TSH (0.300-4.500) uIu/ml 05/28/21 05/28/21 05/28/21 Range/Units 11:06 11:02 09:58 WBC (4.8-10.8) K/uL RBC (4.7-6.1) M/uL Hgb (14.0-18.0) g/dL Hct (42-52) % MCV (80-100) fL MCH (25-34) pg MCHC (32-36) g/dL RDW Std Deviation (36.4-46.3) fL RDW Coeff of Davon (11.5-14.5) % Plt Count (130-400) K/uL MPV (7.4-10.4) fL Immature Gran % (Auto) % Neut % (Auto) % Lymph % (Auto) % [place] % (Auto) % Eos % (Auto) % Baso % (Auto) % Neut # (Auto) (1.4-6.5) K/uL Lymph # (Auto) (1.2-3.4) K/uL [place] # (Auto) (0.11-0.59) K/uL Eos # (Auto) (0-0.5) K/uL Baso # (Auto) (0-0.2) K/uL Immature Gran # (Auto) (0.00-0.02) K/uL VBG pH VBG pCO2 VBG pO2 VBG HCO3 VBG O2 Saturation VBG Base Excess Sodium (136-145) mmol/L Potassium (3.5-5.1) mmol/L Chloride (98-107) mmol/L Carbon Dioxide (21-32) mmol/L Anion Gap (3-11) BUN (7-18) mg/dl Creatinine (0.6-1.4) mg/dl Est Cr Clr Drug Dosing ml/min Est GFR ( Amer) ml/min Est GFR (Non-Af Amer) ml/min BUN/Creatinine Ratio (10-20) Glucose (70-99) mg/dl POC Glucose 417 H* (70-99) mg/dl Osmolality 341 H (280-300) mOsm/kg Lactate Pending Calcium (8.5-10.1) mg/dl Phosphorus Magnesium (1.8-2.4) mg/dl Total Bilirubin (0.2-1) mg/dl AST (15-37) U/L ALT (12-78) Alkaline Phosphatase (45-117) U/L Troponin I (0-0.045) ng/ml Total Protein (6.4-8.2) gm/dl Albumin (3.4-5.0) gm/dl Globulin (2.5-4.0) gm/dl Albumin/Globulin Ratio (0.9-2) Beta-Hydroxybutyric Acd TSH (0.300-4.500) uIu/ml 05/28/21 05/28/21 Range/Units 09:50 09:50 WBC 8.45 (4.8-10.8) K/uL RBC 5.56 (4.7-6.1) M/uL Hgb 17.7 (14.0-18.0) g/dL Hct 52.5 H (42-52) % MCV 94.4 (80-100) fL MCH 31.8 (25-34) pg MCHC 33.7 (32-36) g/dL RDW Std Deviation 44.4 (36.4-46.3) fL RDW Coeff of Davon 12.7 (11.5-14.5) % Plt Count 252 (130-400) K/uL MPV 10.8 H (7.4-10.4) fL Immature Gran % (Auto) 1.5 % Neut % (Auto) 79.3 % Lymph % (Auto) 13.7 % [place] % (Auto) 5.4 % Eos % (Auto) 0.0 % Baso % (Auto) 0.1 % Neut # (Auto) 6.69 H (1.4-6.5) K/uL Lymph # (Auto) 1.16 L (1.2-3.4) K/uL [place] # (Auto) 0.46 (0.11-0.59) K/uL Eos # (Auto) 0.00 (0-0.5) K/uL Baso # (Auto) 0.01 (0-0.2) K/uL Immature Gran # (Auto) 0.13 H (0.00-0.02) K/uL VBG pH VBG pCO2 VBG pO2 VBG HCO3 VBG O2 Saturation VBG Base Excess Sodium 137 (136-145) mmol/L Potassium 4.2 (3.5-5.1) mmol/L Chloride 103 (98-107) mmol/L Carbon Dioxide 6 L* (21-32) mmol/L Anion Gap 28.0 H (3-11) BUN 15 (7-18) mg/dl Creatinine 1.52 H (0.6-1.4) mg/dl Est Cr Clr Drug Dosing 63.1 ml/min Est GFR ( Amer) 58.5 ml/min Est GFR (Non-Af Amer) 50.5 ml/min BUN/Creatinine Ratio 9.8 L (10-20) Glucose 454 H* (70-99) mg/dl POC Glucose (70-99) mg/dl Osmolality (280-300) mOsm/kg Lactate Calcium 9.1 (8.5-10.1) mg/dl Phosphorus Magnesium 2.1 (1.8-2.4) mg/dl Total Bilirubin 0.4 (0.2-1) mg/dl AST 12 L (15-37) U/L ALT 30 (12-78) Alkaline Phosphatase 102 (45-117) U/L Troponin I < 0.015 (0-0.045) ng/ml Total Protein 8.4 H (6.4-8.2) gm/dl Albumin 3.6 (3.4-5.0) gm/dl Globulin 4.8 H (2.5-4.0) gm/dl Albumin/Globulin Ratio 0.7 L (0.9-2) Beta-Hydroxybutyric Acd Pending TSH 1.390 (0.300-4.500) uIu/ml Diagnostic Findings Chest x-ray image personally reviewed by me and agree with the following report: Chest X-Ray 05/28/21 09:46 XR chest 1V portable HISTORY: 56 years-old Male covid acute shortness of breath. COVID Positive. COMPARISON: None TECHNIQUE: Portable AP view of the chest FINDINGS: The cardiomediastinal and hilar silhouettes are within normal limits. There is no pneumothorax, pleural effusion or overt pulmonary edema. Subtle ill-defined peripheral predominant additional opacities of the mid to lower lung zones. The bones appear grossly intact. IMPRESSION: Subtle ill-defined interstitial opacities within the mid to lower lung zones is suspicious for developing viral pneumonia. ACT 112: Negative or not required by law. The above report was generated using voice recognition software. It may contain grammatical, syntax or spelling errors. Electronically signed by: Leonid Cardona M.D. 05/28/2021 10:58 AM ECG Additional Comments: ECG on 05/28/2021 at 9:41 AM with sinus tachycardia, rate 120, a lot of artifact, left anterior fascicular block, poor R wave progression precordial leads, no obvious ischemic changes Code Status & VTE Plan Code Status Full code VTE Prophylaxis Plan VTE Prophylaxis will be ordered: Yes PG Care Time/CCT Total # of Minutes Spent Total Time Spent with Patient: Total time spent is greater than 50% in coordination of care (as documented) at patient's floor/unit and/or counseling patient: Coding Level of Care Code 68596 Initial Inpt Care Lvl 3 Diagnoses DM2 (diabetes mellitus, type 2) E11.9 Hyperlipidemia E78.5 DKA (diabetic ketoacidosis) E11.10 Pneumonia due to COVID-19 virus U07.1; J12.82 MAYRLIN (acute kidney injury) N17.9 Nausea & vomiting R11.2
[2021-05-28] MEDS: INSULIN REGULAR 250 UNITS in SODIUM CHLORIDE 0.9% 247.5 ML IV SCH (11:13)
[2021-05-28 11:39] LABS: BUN Creatinine Ratio 11.2 (10-20); Calcium 8.6 mg/dl (8.5-10.1); Creatinine Clr Calc Pharmacy 76.1 ml/min; Est GFR (African American) 73.4 ml/min; Est GFR (Non-African American) 63.3 ml/min; Phosphorus 4.9 mg/dl (2.5-4.9); Potassium 4.6 mmol/L (3.5-5.1)
[2021-05-28] MEDS ORDERED: PHARMACY GLYCEMIC MGMT CONSULT PRN (11:49)
[2021-05-28] MEDS: SODIUM CHLOR 0.45% + 20MEQ KCL 20 MEQ/1,000 ML BAG IV SCH ×2 (11:55→17:36)
[2021-05-28] MEDS: INSULIN ASPART PER UNIT SC SCH ×3 (12:13→22:30)
[2021-05-28 14:02] LABS: Influenza A virus by PCR Negative (Neg); Influenza B virus by PCR Negative (Neg); RSV by PCR Negative (Neg)
[2021-05-28 14:07] LABS: SARS CoV2 RNA(COVID-19) InHosp POSITIVE (Negative)
--- NOTE | 2021-05-28 14:15 | Electrocardiogram Report ---
Test Reason : Blood Pressure : / mmHG Vent. Rate : 120 BPM Atrial Rate : 120 BPM P-R Int : 164 ms QRS Dur : 084 ms QT Int : 328 ms P-R-T Axes : 025 -72 024 degrees QTc Int : 463 ms Poor data quality, interpretation may be adversely affected Sinus tachycardia Left anterior fascicular block Abnormal ECG No previous ECGs available Confirmed by Dwayne Deleon ([id number]) on 05/28/2021 2:15:06 PM Referred By: REFERRED SELF Confirmed By:Dwayne Deleon
[2021-05-28 14:20] LABS: Base Excess VBG -21.5 mEq/L; HCO3 VBG 8 mmol/L; PCO2 VBG 29 mmHg (38-50); PO2 VBG 41 mmHg; pH VBG 7.05 (7.36-7.41)
[2021-05-28 14:26] LABS: Appearance Urine Clear (Clear); Bacteria Urine Automated Negative (Negative); Bilirubin Urine Negative (Negative); Blood Urine 1+ (Negative); Color Urine Yellow; Glucose Urine UA 3+ (Negative); Ketones Urine 4+ (Negative); Leukocyte Esterase Urine Negative (Negative); Nitrite Urine Negative (Negative); Protein Urine 2+ (Negative); RBC Urine Automated 0-4 /hpf (0-4); Specific Gravity Urine 1.031 (1.000-1.030); Urobilinogen Urine Negative (Negative)
[2021-05-28] MEDS ORDERED: SODIUM CHLORIDE 0.9% 1000ML 1,000 ML IV ONE (14:35)
[2021-05-28 14:39] LABS: Mucus Urine Present (None Prsent)
[2021-05-28 14:52] LABS: Urine Potassium 48.8 mmol/L
[2021-05-28 15:43] LABS: Calcium 7.7 mg/dl (8.5-10.1); Est GFR (African American) 87.5 ml/min; Est GFR (Non-African American) 75.5 ml/min
[2021-05-28] MEDS ORDERED: DEXTROSE 50% 50 ML SYRINGE IV PRN (18:16)
[2021-05-28] MEDS ORDERED: GLUCOSE 40% GEL 15 GM TUBE PO PRN (18:16)
[2021-05-28] MEDS ORDERED: CARBOHYDRATES FOR HYPOGLYCEMIA PO PRN (18:16)
[2021-05-28] MEDS ORDERED: ACETAMINOPHEN 325 MG TAB PO PRN (18:16)
[2021-05-28] MEDS ORDERED: GLUCAGON FOR INJ 1 MG VIAL SQ PRN (18:16)
[2021-05-28] MEDS ORDERED: GLUCOSE 10 TABS/TUBE PO PRN (18:16)
[2021-05-28] MEDS ORDERED: D5W AND 1/2NSS + 20MEQ KCL 20 MEQ/1,000 ML BAG IV SCH (18:45)
--- NOTE | 2021-05-28 19:00 | Pharmacy Report ---
Pharmacy Glycemic Short Note 2 - Date of Service May 28, 2021 - Glycemic Short BSG Results (Last 24 hours): 05/28/21 05/28/21 05/28/21 09:50 11:02 11:06 Glucose 454 H* 479 H* POC Glucose 417 H* 05/28/21 05/28/21 05/28/21 11:58 13:26 14:33 Glucose POC Glucose 406 H* 389 H* 318 H* 05/28/21 05/28/21 05/28/21 15:02 15:13 16:59 Glucose 277 H POC Glucose 299 H 265 H 05/28/21 18:16 Glucose POC Glucose 192 H OUTPATIENT ANTIDIABETIC REGIMEN: * Metformin 500 mg PO BIDM * HbA1c ordered for tomorrow morning ASSESSMENT: * EH is a 56 year old male with T2DM with ~140 lb weight loss over the past 1-2 years, presents today in severe DKA * Pertinent labs/findings on admission include, BSG of 454 mg/dL, Anion gap of 28, serum bicarbonate of 6 mmol/L, SCr of 1.52 mg/dL, and venous blood pH of 7.05. * Secondarily, patient is positive for COVID-19 and has had poor appetite with nausea/vomiting x 5-6 days * Insulin infusion and IV fluids initiated at time of presentation, MARYLIN improving, DKA resolving (dextrose-added to fluids based on BSG in goal range) * Will hold off on SC basal insulin at this time, as patient does not meet criteria for transition to SC (pH: 7.21, anion gap: 20, and serum bicarbonate: 9) PLAN FOR INPATIENT GLYCEMIC CONTROL: * Hold outpatient oral diabetes medications * IV insulin infusion * Basal insulin * Will order once anion gap is closed/labs improved * Bolus insulin * NovoLog per scale ACHS based on insulin infusion calculator PLAN FOR DISCHARGE: * TBD, pending HbA1c
[2021-05-28 19:47] LABS: Potassium 3.9 mmol/L (3.5-5.1)
[2021-05-28] MEDS: D5W AND 1/2NSS + 20MEQ KCL 20 MEQ/1,000 ML BAG IV SCH ×2 (20:03→23:57)
[2021-05-28 20:04] LABS: BUN Creatinine Ratio 12.9 (10-20); Calcium 8.3 mg/dl (8.5-10.1); Creatinine Clr Calc Pharmacy 92.2 ml/min; Est GFR (African American) 92.6 ml/min; Est GFR (Non-African American) 79.9 ml/min; Potassium 3.8 mmol/L (3.5-5.1)
[2021-05-28] MEDS ORDERED: POTASSIUM CHLORIDE CRTAB 20 MEQ TABCR PO STA (20:11)
[2021-05-28 20:19] LABS: Phosphorus 1.2 mg/dl (2.5-4.9)
[2021-05-28] MEDS: ENOXAPARIN INJ 40 MG/0.4 ML SYR SQ SCH (20:26)
[2021-05-28] MEDS ORDERED: POTASSIUM PHOS 3 MMOL/1 ML INFUSION IV STA (20:30)
[2021-05-28] MEDS ORDERED: POTASSIUM PHOSPHATE 40 MMOL in SODIUM CHLORIDE 0.9% 1000ML 1,000 ML IV ONE (21:30)
[2021-05-28] MEDS: ONDANSETRON INJ 2 MG/ML 2 ML VIAL IV PRN (22:06)
[2021-05-28] MEDS: PATIENT'S ALLERGY INFO NEEDS ENTERED SCH (23:33)
[2021-05-28 23:34] LABS: BUN Creatinine Ratio 14.7 (10-20); Calcium 8.2 mg/dl (8.5-10.1); Creatinine Clr Calc Pharmacy 105.4 ml/min; Est GFR (African American) 108.8 ml/min; Est GFR (Non-African American) 93.9 ml/min; Phosphorus 1.7 mg/dl (2.5-4.9); Potassium 3.9 mmol/L (3.5-5.1)
[2021-05-29 02:59] LABS: Hematocrit (blood only) 39.2 % (42-52); Hemoglobin 13.9 g/dL (14.0-18.0); Immature Granulocytes # (auto) 0.06 K/uL (0.00-0.02); Immature Granulocytes % (auto) 0.8 %; Lymphocytes # (auto) 0.67 K/uL (1.2-3.4); Lymphocytes % (auto) 9.2 %; Mean Corpuscular Hemoglobin 31.3 pg (25-34); Mean Corpuscular Hgb Conc 35.5 g/dL (32-36); Mean Corpuscular Volume 88.3 fL (80-100); Mean Platelet Volume 9.9 fL (7.4-10.4); Monocytes # (auto) 0.78 K/uL (0.11-0.59); Monocytes % (auto) 10.7 %; Neutrophils # (auto) 5.76 K/uL (1.4-6.5); Neutrophils % (auto) 79.3 %; Platelet Count 162 K/uL (130-400); RDW Coefficient of Variation 12.4 % (11.5-14.5); RDW Standard Deviation 40.1 fL (36.4-46.3); Red Blood Count 4.44 M/uL (4.7-6.1); White Blood Count 7.27 K/uL (4.8-10.8)
[2021-05-29 03:18] LABS: Albumin Level 2.6 gm/dl (3.4-5.0); BUN Creatinine Ratio 12.5 (10-20); Calcium 8.4 mg/dl (8.5-10.1); Creatinine Clr Calc Pharmacy 100.9 ml/min; Est GFR (African American) 103.3 ml/min; Est GFR (Non-African American) 89.1 ml/min; Magnesium 1.7 mg/dl (1.8-2.4); Potassium 3.8 mmol/L (3.5-5.1)
[2021-05-29 03:22] LABS: Albumin Globulin Ratio 0.8 (0.9-2); Bilirubin,Total 0.2 mg/dl (0.2-1); C Reactive Protein 0.47 mg/dl (0-0.29); Globulin 3.3 gm/dl (2.5-4.0); Phosphorus 2.3 mg/dl (2.5-4.9); Total Protein 5.9 gm/dl (6.4-8.2)
[2021-05-29] MEDS: D5W AND 1/2NSS + 20MEQ KCL 20 MEQ/1,000 ML BAG IV SCH ×2 (04:39→10:00)
[2021-05-29 07:12] LABS: Estimated Average Glucose 384 mg/dl
[2021-05-29 07:18] LABS: BUN Creatinine Ratio 12.5 (10-20); Calcium 8.7 mg/dl (8.5-10.1); Creatinine Clr Calc Pharmacy 110.2 ml/min; Est GFR (African American) 111.8 ml/min; Est GFR (Non-African American) 96.5 ml/min; Potassium 3.7 mmol/L (3.5-5.1)
[2021-05-29 07:19] LABS: Phosphorus 2.2 mg/dl (2.5-4.9)
[2021-05-29] MEDS: INSULIN REGULAR 250 UNITS in SODIUM CHLORIDE 0.9% 247.5 ML IV SCH (07:40)
[2021-05-29] MEDS: ONDANSETRON INJ 2 MG/ML 2 ML VIAL IV PRN (07:50)
[2021-05-29] MEDS: ROSUVASTATIN CALCIUM 5 MG TAB PO SCH (08:52)
[2021-05-29] MEDS: ASPIRIN 81 MG ECTAB PO SCH (08:52)
[2021-05-29] MEDS ORDERED: INSULIN GLARGINE SOLOSTAR 100 UNITS/ML 3 ML PEN SC ONE ×2 (11:15→21:00)
--- NOTE | 2021-05-29 11:24 | Pharmacy Report ---
Pharmacy Glycemic Short Note 2 - Date of Service May 29, 2021 - Glycemic Short BSG Results (Last 24 hours): 05/28/21 05/28/21 05/28/21 11:06 11:58 13:26 Glucose 479 H* POC Glucose 406 H* 389 H* 05/28/21 05/28/21 05/28/21 14:33 15:02 15:13 Glucose 277 H POC Glucose 318 H* 299 H 05/28/21 05/28/21 05/28/21 16:59 18:16 19:13 Glucose POC Glucose 265 H 192 H 183 H 05/28/21 05/28/21 05/28/21 19:30 20:15 20:16 Glucose 174 H POC Glucose 376 H* 215 H 05/28/21 05/28/21 05/28/21 21:20 22:20 23:03 Glucose 231 H POC Glucose 194 H 203 H 05/28/21 05/29/21 05/29/21 23:22 01:27 02:52 Glucose 206 H POC Glucose 217 H 195 H 05/29/21 05/29/21 05/29/21 03:43 05:40 06:45 Glucose 193 H POC Glucose 211 H 176 H 05/29/21 05/29/21 05/29/21 07:35 08:33 09:37 Glucose POC Glucose 182 H 181 H 167 H 05/29/21 11:07 Glucose POC Glucose 196 H OUTPATIENT ANTIDIABETIC REGIMEN: * Metformin 500 mg PO BIDM * HbA1c ordered for tomorrow morning ASSESSMENT: 05/29 * IV insulin infusion continues this AM at 8.2 units/hr. Dextrose containing IVFs also running at 250cc/hr. * BSGs have fallen to upper 100's. Will change goal range to 140-180mg/dL to allow for continued IV insulin admin and to maintain BSGs less than 200 for transition to SQ today. * AG acidosis has resolved (AG 7, Bicarb > 15, vpH normalized). Pt is ordered a clear liquid diet although he still has c/o nausea/vomiting this AM. * Will convert to SQ regimen based upon weight and "severe" stress level as recent severe DKA will likely lead to persistent insulin resistance for 24 hrs or longer. 05/28 * EH is a 56 year old male with T2DM with ~140 lb weight loss over the past 1-2 years, presents today in severe DKA * Pertinent labs/findings on admission include, BSG of 454 mg/dL, Anion gap of 28, serum bicarbonate of 6 mmol/L, SCr of 1.52 mg/dL, and venous blood pH of 7.05. * Secondarily, patient is positive for COVID-19 and has had poor appetite with nausea/vomiting x 5-6 days * Insulin infusion and IV fluids initiated at time of presentation, MARYLIN improving, DKA resolving (dextrose-added to fluids based on BSG in goal range) * Will hold off on SC basal insulin at this time, as patient does not meet criteria for transition to SC (pH: 7.21, anion gap: 20, and serum bicarbonate: 9) PLAN FOR INPATIENT GLYCEMIC CONTROL: * Continue IV insulin infusion * Discontinue IV insulin infusion 2 hrs after 1st Lantus dose given * Basal insulin * Lantus 40 units SQ x 1 now. then 8-20 units this evening per scale * Bolus insulin * NovoLog per scale ACHS and at 0000 + 0400 * Goal range: 110 - 140mg/dL * Correction factor: 20 mg/dL/unit * Carb ratio: 6g/unit PLAN FOR DISCHARGE: * A1c of 15% and recent admission for severe DKA indicate need for SQ insulin regimen on discharge. Vending Route Servicer has been consulted. Patient should be discharged on basal/bolus regimen in some fashion w/ close f/u with PCP/Endocrinology.
--- NOTE | 2021-05-29 11:35 | Pharmacy Report ---
Pharmacy Glycemic Short Note 2 - Date of Service May 29, 2021 - Glycemic Short BSG Results (Last 24 hours): 05/28/21 05/28/21 05/28/21 11:06 11:58 13:26 Glucose 479 H* POC Glucose 406 H* 389 H* 05/28/21 05/28/21 05/28/21 14:33 15:02 15:13 Glucose 277 H POC Glucose 318 H* 299 H 05/28/21 05/28/21 05/28/21 16:59 18:16 19:13 Glucose POC Glucose 265 H 192 H 183 H 05/28/21 05/28/21 05/28/21 19:30 20:15 20:16 Glucose 174 H POC Glucose 376 H* 215 H 05/28/21 05/28/21 05/28/21 21:20 22:20 23:03 Glucose 231 H POC Glucose 194 H 203 H 05/28/21 05/29/21 05/29/21 23:22 01:27 02:52 Glucose 206 H POC Glucose 217 H 195 H 05/29/21 05/29/21 05/29/21 03:43 05:40 06:45 Glucose 193 H POC Glucose 211 H 176 H 05/29/21 05/29/21 05/29/21 07:35 08:33 09:37 Glucose POC Glucose 182 H 181 H 167 H OUTPATIENT ANTIDIABETIC REGIMEN: * Metformin 500 mg PO BIDM * HbA1c ordered for tomorrow morning ASSESSMENT: * EH is a 56 year old male with T2DM with ~140 lb weight loss over the past 1-2 years, presents today in severe DKA * Pertinent labs/findings on admission include, BSG of 454 mg/dL, Anion gap of 28, serum bicarbonate of 6 mmol/L, SCr of 1.52 mg/dL, and venous blood pH of 7.05. * Secondarily, patient is positive for COVID-19 and has had poor appetite with nausea/vomiting x 5-6 days * Insulin infusion and IV fluids initiated at time of presentation, MARYLIN improving, DKA resolving (dextrose-added to fluids based on BSG in goal range) * Will hold off on SC basal insulin at this time, as patient does not meet criteria for transition to SC (pH: 7.21, anion gap: 20, and serum bicarbonate: 9) PLAN FOR INPATIENT GLYCEMIC CONTROL: * Hold outpatient oral diabetes medications * IV insulin infusion * Basal insulin * Will order once anion gap is closed/labs improved * Bolus insulin * NovoLog per scale ACHS based on insulin infusion calculator PLAN FOR DISCHARGE: * TBD, pending HbA1c
--- NOTE | 2021-05-29 13:12 | Hospitalist Progress Note ---
Date of Service May 29, 2021 Reviewed case with Nancy Rogers PA-C Assessment & Plan (1) DKA (diabetic ketoacidosis): Plan: Patient with diagnosis of type 2 diabetes in the summer 2021, previously was morbidly obese and has lost 140 pounds in the past 1 to 2 years Was on Metformin alone at home Now with Covid-19 with very poor appetite, nausea/vomiting for 5 to 6 days as likely trigger of DKA Presents with severe dehydration, acute kidney injury, serum bicarbonate of 6 with anion gap of 28, VBG 7.05, glucose in the mid four hundreds - currently MARYLIN resolved; bicarb improved to 18; gap closed, a VBG normalized -Admit to PCU -Started insulin drip after insulin bolus, Accu-Cheks as per protocol with insulin drip for DKA -- Given Lantus and awaiting wean off insulin gtt to transition to injectables -Continue IV fluids and removed dextrose to allow for wean -Glycemic consult ordered-appreciate pharmacy assistance -Follow serial BMP, magnesium, phosphorus, VBG and replace electrolytes when needed -He will likely need insulin upon discharge and should follow-up with endocrinology - consultation to supervisor livestock yard -Hemoglobin A1c -- 15 -- Patient thinks his A1c was high but is not sure what that number was -UA unremarkable for infection (2) Nausea & vomiting: Plan: Seems somewhat improved after receiving IV Zofran -Secondary to Covid-19 -Zofran IV as needed -Clear liquids diet only for now (3) MARYLIN (acute kidney injury): Plan: Secondary to severe dehydration and DKA; RESOLVED - Continue IV fluids - Follow serial BMP (4) Pneumonia due to COVID-19 virus: Plan: With bilateral developing pneumonia on chest x-ray, very mild nonproductive cough, appropriate saturations on RA No need for dexamethasone, he is outside the window for Remdesivir - Incentive spirometry - Observe for worsening symptoms and/or hypoxia He is at day 12 of his illness-will place on Covid precautions for now and discussed with infection control but will continue precautions at this time Suspect his tachycardia is secondary to severe dehydration and DKA (now resolved), do not suspect pulmonary embolism. His oxygen levels are appropriate on room air, he does not have chest pain, troponin is negative, and he had another reason for tachycardia. (5) DM2 (diabetes mellitus, type 2): Plan: As above, only on metformin as an outpatient He does not know what his last hemoglobin A1c was Insulin management as above Hold home metformin (6) Hyperlipidemia: Plan: Continue home rosuvastatin Plan: DVT prophylaxis-SCDs, Lovenox 40 mg once daily until renal function improves and then can increase to twice daily (will increase tomorrow if remaining stable) Disposition-admit to PCU Full code Updated Frances per patient request - number is [phone] Admission and Anticipated Discharge Date Admission Date: May 28, 2021 Subjective Patient continues to have intermittent nausea and feeling run down. States feels a bit better since admission but very fatigued. His labs have improved and anion gap closed. He will wean from insulin gtt this afternoon. He reports no shortness of breath but does have an intermittent cough. No abdominal pain. Reports not having much of an appetite. Review of Systems Review of Systems: All systems reviewed & are unremarkable except as noted in Subjective Physical Exam Physical Exam: PHYSICAL EXAM General Appearance: WDWN in NAD but ill appearing who is A&O x 3 HEENT: Head is normocephalic/atraumatic; Hearing grossly intact Neck: Supple; Trachea midline; Neg JVD Heart: RRR with no M/G/R Lungs: CTA in all lung skelton bilaterally; Respirations unlabored; Neg accessory muscle use Abdomen: Soft, non-tender, non-distended; Positive BS x 4 quadrants Extremities: Neg cyanosis or edema Neurological: Speech clear; Gross motor/sensory function intact; Neg focal neurologic deficits Psychiatric: Appropriate mood/affect Skin: Normal Color; Warm/Dry Results & Data Results & Data ([facility]) Vital Signs (Past 12 Hours) Vital Signs Pulse Resp BP Pulse Ox 05/29/21 10:00 61 16 137/77 96 05/29/21 07:00 60 18 118/74 97 05/29/21 06:00 60 15 127/69 98 05/29/21 05:00 62 20 120/73 95 05/29/21 04:00 63 20 117/66 93 05/29/21 03:00 71 17 147/90 H 97 05/29/21 02:00 61 18 119/73 96 PG Care Time/CCT Total # of Minutes Spent Total Time Spent with Patient: Total time spent is greater than 50% in coordination of care (as documented) at patient's floor/unit and/or counseling patient: Coding Level of Care Code 57196 Subseq Hosp Care Lvl 3 Diagnoses DKA (diabetic ketoacidosis) E11.10 Diabetes mellitus complication detail: without coma Diabetes mellitus type: type 2 Nausea & vomiting R11.2 Vomiting type: unspecified MARYLIN (acute kidney injury) N17.9 Pneumonia due to COVID-19 virus U07.1; J12.82 DM2 (diabetes mellitus, type 2) E11.9 Hyperlipidemia E78.5 Hyperlipidemia type: unspecified (1) DKA (diabetic ketoacidosis) Diabetes mellitus complication detail: without coma Diabetes mellitus type: type 2 Qualified Code(s): E11.10 - Type 2 diabetes mellitus with ketoacidosis without coma (2) Hyperlipidemia Hyperlipidemia type: unspecified Qualified Code(s): E78.5 - Hyperlipidemia, unspecified (3) Nausea & vomiting Vomiting type: unspecified Qualified Code(s): R11.2 - Nausea with vomiting, unspecified
[2021-05-29] MEDS: SODIUM CHLOR 0.45% + 20MEQ KCL 20 MEQ/1,000 ML BAG IV SCH ×3 (13:30→21:59)
[2021-05-29] MEDS: INSULIN ASPART PER UNIT SC SCH ×4 (13:44→22:29)
[2021-05-29] MEDS: PATIENT'S ALLERGY INFO NEEDS ENTERED SCH ×6 (22:27→22:40)
[2021-05-29] MEDS: ENOXAPARIN INJ 40 MG/0.4 ML SYR SQ SCH (22:29)
[2021-05-30] MEDS: INSULIN ASPART PER UNIT SC SCH ×6 (00:02→22:01)
[2021-05-30] MEDS: SODIUM CHLOR 0.45% + 20MEQ KCL 20 MEQ/1,000 ML BAG IV SCH ×5 (00:03→10:59)
[2021-05-30 07:58] LABS: Hematocrit (blood only) 37.7 % (42-52); Hemoglobin 13.6 g/dL (14.0-18.0); Mean Corpuscular Hemoglobin 31.6 pg (25-34); Mean Corpuscular Hgb Conc 36.1 g/dL (32-36); Mean Corpuscular Volume 87.7 fL (80-100); Mean Platelet Volume 10.2 fL (7.4-10.4); Platelet Count 153 K/uL (130-400); RDW Coefficient of Variation 12.5 % (11.5-14.5); RDW Standard Deviation 40.1 fL (36.4-46.3); White Blood Count 8.17 K/uL (4.8-10.8)
[2021-05-30] MEDS: ONDANSETRON INJ 2 MG/ML 2 ML VIAL IV PRN (08:12)
[2021-05-30 08:39] LABS: BUN Creatinine Ratio 8.8 (10-20); Calcium 8.9 mg/dl (8.5-10.1); Creatinine Clr Calc Pharmacy 180.9 ml/min; Est GFR (African American) 137.1 ml/min; Est GFR (Non-African American) 118.3 ml/min; Potassium 3.3 mmol/L (3.5-5.1)
[2021-05-30] MEDS: ROSUVASTATIN CALCIUM 5 MG TAB PO SCH (09:40)
[2021-05-30] MEDS: ASPIRIN 81 MG ECTAB PO SCH (09:40)
[2021-05-30] MEDS ORDERED: POTASSIUM CHLORIDE CRTAB 20 MEQ TABCR PO STA (10:49)
[2021-05-30] MEDS ORDERED: INSULIN GLARGINE SOLOSTAR 100 UNITS/ML 3 ML PEN SC SCH (11:30)
--- NOTE | 2021-05-30 11:50 | Pharmacy Report ---
Pharmacy Glycemic Short Note 2 - Date of Service May 30, 2021 - Glycemic Short BSG Results (Last 24 hours): 05/29/21 05/29/21 05/29/21 12:22 13:31 14:11 Glucose POC Glucose 194 H 120 H 130 H 05/29/21 05/29/21 05/29/21 15:09 16:11 17:36 Glucose POC Glucose 186 H 187 H 145 H 05/29/21 05/29/21 05/29/21 18:56 21:04 23:53 Glucose POC Glucose 148 H 157 H 134 H 05/30/21 05/30/21 05/30/21 03:41 07:03 08:07 Glucose 107 H POC Glucose 99 122 H OUTPATIENT ANTIDIABETIC REGIMEN: * metformin 500mg PO BID * A1c = 15% 05/29/20 ASSESSMENT: 05/30: * BSGs well controlled since transition off insulin drip yesterday * Fasting BSG 99-122 this AM w/ 48 units basal insulin on board * Patient continues to c/o nausea this AM. Will continue Lantus at reduced dose today given current BSGs and PO intake. * Novolog utilized minimally over last 24 hrs as BSGs near goal and patient not taking PO well. Will titrate dose down slightly as well given current BSG trajectory 05/29 * IV insulin infusion continues this AM at 8.2 units/hr. Dextrose containing IVFs also running at 250cc/hr. * BSGs have fallen to upper 100's. Will change goal range to 140-180mg/dL to allow for continued IV insulin admin and to maintain BSGs less than 200 for transition to SQ today. * AG acidosis has resolved (AG 7, Bicarb > 15, vpH normalized). Pt is ordered a clear liquid diet although he still has c/o nausea/vomiting this AM. * Will convert to SQ regimen based upon weight and "severe" stress level as recent severe DKA will likely lead to persistent insulin resistance for 24 hrs or longer. 05/28 * EH is a 56 year old male with T2DM with ~140 lb weight loss over the past 1-2 years, presents today in severe DKA in the setting of + COVID19 * Pertinent labs/findings on admission include, BSG of 454 mg/dL, Anion gap of 28, serum bicarbonate of 6 mmol/L, SCr of 1.52 mg/dL, and venous blood pH of 7.05. * Secondarily, patient is positive for COVID-19 and has had poor appetite with nausea/vomiting x 5-6 days * Insulin infusion and IV fluids initiated at time of presentation, MARYLIN improving, DKA resolving (dextrose-added to fluids based on BSG in goal range) * Will hold off on SC basal insulin at this time, as patient does not meet criteria for transition to SC (pH: 7.21, anion gap: 20, and serum bicarbonate: 9) PLAN FOR INPATIENT GLYCEMIC CONTROL: * Basal insulin - decrease * Lantus 12 units SQ BID - titrate per fasting AM BSG * Bolus insulin * NovoLog per scale ACHS and at 0200 * Goal range: 110 - 140mg/dL * Correction factor: 25 mg/dL/unit * Carb ratio: 8g/unit PLAN FOR DISCHARGE: * A1c of 15% and recent admission for severe DKA indicate need for SQ insulin regimen on discharge. Scroll Machine Operator has been consulted. Patient should be discharged on basal/bolus regimen in some fashion w/ close f/u with PCP/Endocrinology. * Given the limited data we have thus far, one could consider weight-based insulin doses on discharge per "mild-moderate" stress with close f/u with outpt provider. At this time would anticipate the patient to need 20-24 units of Lantus once daily as well as Novolog 6 units with each meal on discharge. She could also resume her metformin if no contraindications present.
[2021-05-30] MEDS ORDERED: INSULIN GLARGINE SOLOSTAR 100 UNITS/ML 3 ML PEN SC ONE (16:30)
--- NOTE | 2021-05-30 16:39 | Hospitalist Progress Note ---
Date of Service May 30, 2021 Assessment & Plan (1) DKA (diabetic ketoacidosis): Plan: Patient with diagnosis of type 2 diabetes in the summer 2021, previously was morbidly obese and has lost 140 pounds in the past 1 to 2 years Was on Metformin alone at home Now with Covid-19 with very poor appetite, nausea/vomiting for 5 to 6 days as likely trigger of DKA Presents with severe dehydration, acute kidney injury, serum bicarbonate of 6 with anion gap of 28, VBG 7.05, glucose in the mid four hundreds - currently AMRYLIN resolved; bicarb improved to 24; gap closed, a VBG normalized -Admit to PCU/COVID -Has been weaned from insulin gtt and to start planned home approach to insulin therapy tomorrow -D/C fluids -Glycemic consult ordered-appreciate pharmacy assistance -Follow serial BMP, magnesium, phosphorus, and replace electrolytes when needed -Plan for insulin upon discharge and should follow-up closely with PCP; patient deferred Endocrine for now -Hemoglobin A1c -- 15 -- Patient thinks his A1c was high but is not sure what that number was previously -UA unremarkable for infection (2) Nausea & vomiting: Plan: IMPROVING -Secondary to Covid-19 -Zofran IV as needed -T2DM diet (3) MARYLIN (acute kidney injury): Plan: Secondary to severe dehydration and DKA; RESOLVED - Continue IV fluids - Follow serial BMP (4) Pneumonia due to COVID-19 virus: Plan: With bilateral developing pneumonia on chest x-ray, very mild nonproductive cough, appropriate saturations on RA No need for dexamethasone, he is outside the window for Remdesivir - Incentive spirometry - Observe for worsening symptoms and/or hypoxia He is at day 13 of his illness-will place on Covid precautions for now and discussed with infection control but will continue precautions at this time Suspect his tachycardia is secondary to severe dehydration and DKA (now resolve d), do not suspect pulmonary embolism. His oxygen levels are appropriate on room air, he does not have chest pain, troponin is negative, and he had another reason for tachycardia. (5) DM2 (diabetes mellitus, type 2): Plan: As above, only on metformin as an outpatient He does not know what his last hemoglobin A1c was Insulin management as above Hold home metformin (6) Hyperlipidemia: Plan: Continue home rosuvastatin Plan: DVT prophylaxis-SCDs, Lovenox 40 mg once daily until renal function improves and then can increase to twice daily (will increase tomorrow if remaining stable) Disposition-admit to PCU Full code Updated Frances per patient request - number is [phone] Admission and Anticipated Discharge Date Admission Date: May 28, 2021 Subjective No acute events overnight. Patient has been weaned off insulin gtt and will transition to a home regimen in AM. Plan to use insulin on discharge. Reports energy is improved and actually more of an appetite and will advance the diet. Remains on RA and intermittent cough but continues to improve from a COVID perspective. Review of Systems Review of Systems: All systems reviewed & are unremarkable except as noted in Subjective Physical Exam Physical Exam: PHYSICAL EXAM General Appearance: WDWN in NAD who is A&O x 3 HEENT: Head is normocephalic/atraumatic; Hearing grossly intact Neck: Supple; Trachea midline; Neg JVD Heart: RRR with no M/G/R Lungs: CTA in all lung skelton bilaterally; Respirations unlabored; Neg accessory muscle use Abdomen: Soft, non-tender, non-distended; Positive BS x 4 quadrants Extremities: Neg cyanosis or edema Neurological: Speech clear; Gross motor/sensory function intact; Neg focal neurologic deficits Psychiatric: Appropriate mood/affect Skin: Normal Color; Warm/Dry Results & Data Results & Data ([facility]) Vital Signs (Past 12 Hours) Vital Signs Temp Pulse Pulse Resp BP Pulse Ox 05/30/21 15:18 37.1 C 54 L 20 115/78 96 05/30/21 12:01 36.6 C 59 L 20 145/96 H 97 05/30/21 08:07 36.7 C 67 18 153/90 H 97 05/30/21 04:57 66 PG Care Time/CCT Total # of Minutes Spent Total Time Spent with Patient: Total time spent is greater than 50% in coordination of care (as documented) at patient's floor/unit and/or counseling patient: Coding Level of Care Code 79602 Subseq Hosp Care Lvl 3 Diagnoses DKA (diabetic ketoacidosis) E11.10 Diabetes mellitus complication detail: without coma Diabetes mellitus type: type 2 Nausea & vomiting R11.2 Vomiting type: unspecified MARYLIN (acute kidney injury) N17.9 Pneumonia due to COVID-19 virus U07.1; J12.82 DM2 (diabetes mellitus, type 2) E11.9 Hyperlipidemia E78.5 Hyperlipidemia type: unspecified (1) DKA (diabetic ketoacidosis) Diabetes mellitus complication detail: without coma Diabetes mellitus type: type 2 Qualified Code(s): E11.10 - Type 2 diabetes mellitus with ketoacidosis without coma (2) Hyperlipidemia Hyperlipidemia type: unspecified Qualified Code(s): E78.5 - Hyperlipidemia, unspecified (3) Nausea & vomiting Vomiting type: unspecified Qualified Code(s): R11.2 - Nausea with vomiting, unspecified
[2021-05-30] MEDS: ENOXAPARIN INJ 40 MG/0.4 ML SYR SQ SCH (21:44)
[2021-05-31] MEDS ORDERED: INSULIN ASPART PER UNIT SC SCH (02:00)
[2021-05-31 07:56] LABS: BUN Creatinine Ratio 13.7 (10-20); Blood Urea Nitrogen 6 mg/dl (7-18); Calcium 8.7 mg/dl (8.5-10.1); Carbon Dioxide 28 mmol/L (21-32); Chloride 109 mmol/L (98-107); Creatinine Clr Calc Pharmacy 239.8 ml/min; Est GFR (African American) > 150.0 ml/min; Est GFR (Non-African American) 132.8 ml/min; Glucose 126 mg/dl (70-99); Magnesium 1.6 mg/dl (1.8-2.4); Sodium 142 mmol/L (136-145)
[2021-05-31 08:12] LABS: Phosphorus 2.8 mg/dl (2.5-4.9)
[2021-05-31] MEDS ORDERED: POTASSIUM CHLORIDE CRTAB 20 MEQ TABCR PO STA (08:32)
[2021-05-31] MEDS: ROSUVASTATIN CALCIUM 5 MG TAB PO SCH (08:59)
[2021-05-31] MEDS: INSULIN ASPART PER UNIT SC SCH ×2 (08:59→12:51)
[2021-05-31] MEDS: ASPIRIN 81 MG ECTAB PO SCH (08:59)
[2021-05-31] MEDS ORDERED: MAGNESIUM OXIDE 400 MG TAB PO SCH (09:00)
[2021-05-31] MEDS ORDERED: INSULIN GLARGINE SOLOSTAR 100 UNITS/ML 3 ML PEN SC SCH (09:00)
--- NOTE | 2021-05-31 13:22 | Pharmacy Report ---
Pharmacy Glycemic Short Note 2 - Date of Service May 31, 2021 - Glycemic Short BSG Results (Last 24 hours): 05/30/21 05/30/21 05/31/21 16:48 19:55 02:07 Glucose POC Glucose 207 H 196 H 97 05/31/21 05/31/21 05/31/21 06:29 08:01 12:09 Glucose 126 H POC Glucose 162 H 215 H OUTPATIENT ANTIDIABETIC REGIMEN: * metformin 500mg PO BID * A1c = 15% 05/29/20 ASSESSMENT: 05/31 * Patient's BSGs yesterday were [phone] and today were 162-215 mg/dL. * Patient received 47 units of insulin yesterday with 27 units of basal and 20 units of bolus. * Will continue with planned Lantus 25 units today. * Novolog weight-based stress of 2. 05/30: * BSGs well controlled since transition off insulin drip yesterday * Fasting BSG 99-122 this AM w/ 48 units basal insulin on board * Patient continues to c/o nausea this AM. Will continue Lantus at reduced dose today given current BSGs and PO intake. * Novolog utilized minimally over last 24 hrs as BSGs near goal and patient not taking PO well. Will titrate dose down slightly as well given current BSG trajectory 05/29 * IV insulin infusion continues this AM at 8.2 units/hr. Dextrose containing IVFs also running at 250cc/hr. * BSGs have fallen to upper 100's. Will change goal range to 140-180mg/dL to allow for continued IV insulin admin and to maintain BSGs less than 200 for transition to SQ today. * AG acidosis has resolved (AG 7, Bicarb > 15, vpH normalized). Pt is ordered a clear liquid diet although he still has c/o nausea/vomiting this AM. * Will convert to SQ regimen based upon weight and "severe" stress level as recent severe DKA will likely lead to persistent insulin resistance for 24 hrs or longer. 05/28 * EH is a 56 year old male with T2DM with ~140 lb weight loss over the past 1-2 years, presents today in severe DKA in the setting of + COVID19 * Pertinent labs/findings on admission include, BSG of 454 mg/dL, Anion gap of 28, serum bicarbonate of 6 mmol/L, SCr of 1.52 mg/dL, and venous blood pH of 7.05. * Secondarily, patient is positive for COVID-19 and has had poor appetite with nausea/vomiting x 5-6 days * Insulin infusion and IV fluids initiated at time of presentation, MARYLIN improving, DKA resolving (dextrose-added to fluids based on BSG in goal range) * Will hold off on SC basal insulin at this time, as patient does not meet criteria for transition to SC (pH: 7.21, anion gap: 20, and serum bicarbonate: 9) PLAN FOR INPATIENT GLYCEMIC CONTROL: * Basal insulin - decrease * Lantus 25 units daily * Bolus insulin * NovoLog per scale ACHS and at 0200 * Goal range: 110 - 140mg/dL * Correction factor: 25 mg/dL/unit * Carb ratio: 8g/unit PLAN FOR DISCHARGE: * A1c of 15% and recent admission for severe DKA indicate need for SQ insulin regimen on discharge. Geopolitics Teacher has been consulted. Patient should be discharged on basal/bolus regimen in some fashion w/ close f/u with PCP/Endocrinology. * Recommend the following: * Lantus 25 units daily * Novolog CR 8 and CF of 25 mg/dL/unit for BSGs > 150 mg/dL
--- NOTE | 2021-05-31 17:03 | Discharge Summary ---
Date of Service May 31, 2021 Admission HPI Per Admitting Provider This patient is a 56-year-old male with history of DM 2 on Metformin, hyperlipidemia, who was diagnosed with Covid-19 about 7 days ago after having symptoms for the last 10 to 12 days. He has had increasing weakness, decreased appetite, nausea/vomiting, but no diarrhea and shortness of breath. He has a mild cough. He is vaccinated for Covid-19 but has not had a booster. There is no blood in his vomit or stool, no abdominal pains. No urinary symptoms. In the ER, he was found to be in DKA with a blood sugar in the mid 400s, a serum bicarbonate of 6, and an anion gap of 28. He had a acute kidney injury with creatinine 1.52, lymphopenia, normal TSH and LFTs, negative troponin. He was tachycardic in a sinus rhythm but had a pulse ox of 99% on room air, no chest pain. Blood pressures were normal. Chest x-ray showed subtle ill-defined interstitial opacities in mid to lower lung zones suspicious for developing viral pneumonia. He was given a total of 1.5 L of IV fluids, started on insulin drip after i nsulin bolus, and given IV Zofran. He will be admitted for DKA in the setting of Covid-19. Principal Diagnosis DKA; COVID-19 Discharge Exam PHYSICAL EXAM General Appearance: WDWN in NAD who is A&O x 3 HEENT: Head is normocephalic/atraumatic; Hearing grossly intact Neck: Supple; Trachea midline; Neg JVD Heart: RRR with no M/G/R Lungs: CTA in all lung skelton bilaterally; Respirations unlabored; Neg accessory muscle use Abdomen: Soft, non-tender, non-distended; Positive BS x 4 quadrants Extremities: Neg cyanosis or edema Neurological: Speech clear; Gross motor/sensory function intact; Neg focal neurologic deficits Psychiatric: Appropriate mood/affect Skin: Normal Color; Warm/Dry Discharge Data Allergies Allergy/AdvReac Type Severity Reaction Status Date / Time No Known Allergies Allergy Unverified 05/29/21 00:29 Consultations 05/28/21 11:02 ED Decision to Admit Stat Ordered Studies Chest X-Ray 05/28/21 09:46 XR chest 1V portable HISTORY: 56 years-old Male covid acute shortness of breath. COVID Positive. COMPARISON: None TECHNIQUE: Portable AP view of the chest FINDINGS: The cardiomediastinal and hilar silhouettes are within normal limits. There is no pneumothorax, pleural effusion or overt pulmonary edema. Subtle ill-defined peripheral predominant additional opacities of the mid to lower lung zones. The bones appear grossly intact. IMPRESSION: Subtle ill-defined interstitial opacities within the mid to lower lung zones is suspicious for developing viral pneumonia. ACT 112: Negative or not required by law. The above report was generated using voice recognition software. It may contain grammatical, syntax or spelling errors. Electronically signed by: Leonid Cardona M.D. 05/28/2021 10:58 AM Hospital Course (1) DKA (diabetic ketoacidosis): RESOLVED Patient with diagnosis of type 2 diabetes in the summer 2021, previously was morbidly obese and has lost 140 pounds in the past 1 to 2 years Was on Metformin alone at home Now with Covid-19 with very poor appetite, nausea/vomiting for 5 to 6 days as likely trigger of DKA Presents with severe dehydration, acute kidney injury, serum bicarbonate of 6 with anion gap of 28, VBG 7.05, glucose in the mid four hundreds - currently MARYLIN resolved; bicarb improved to 24; gap closed, a VBG normalized -Has been weaned from insulin gtt and to start planned home approach to insulin therapy -- Basaglar 25 units daily; Sliding Scale Insulin; Metformin - hopefully with time can maybe transition off insulin -Hemoglobin A1c -- 15 (2) Nausea & vomiting: IMPROVING -Secondary to Covid-19 (3) MARYLIN (acute kidney injury): Secondary to severe dehydration and DKA; RESOLVED (4) Pneumonia due to COVID-19 virus: With bilateral developing pneumonia on chest x-ray, very mild nonproductive cough, appropriate saturations on RA No need for dexamethasone, he is outside the window for Remdesivir - Incentive spirometry - Observe for worsening symptoms and/or hypoxia Suspect his tachycardia is secondary to severe dehydration and DKA (now resolved), do not suspect pulmonary embolism. His oxygen levels are appropriate on room air, he does not have chest pain, troponin is negative, and he had another reason for tachycardia. (5) DM2 (diabetes mellitus, type 2): As above (6) Hyperlipidemia: Continue home rosuvastatin Total Time Total Time Spent Total Time Spent (In Minutes): Spent greater than 30 minutes preparing patient for discharge. This includes discussion with patient/family, assessment, intervention, medication reconciliation, and coordination of care. Discharge Plan Discharge Items Patient Disposition: Home - Self-Care Reason For Visit: DKA, COVID-19 Discharge Diagnosis: Diabetic Ketoacidosis; COVID-19 Activity: Resume your previous activity Non-emergency contact: Primary Care Provider Call non-emergency contact if: you have any medication questions, your symptoms worsen and you have a fever Follow-up/Referrals: Dami Oliva MD [Physician] - (Follow-up in 7-10 days) PCP,NO [Primary Care Provider] - Diet: Carb Consistent or DM2 Addtl Attending Provider Instructions: Diabetic Ketoacidosis: - You were admitted for diabetic ketoacidosis but thankfully with good hydration and an insulin drip your sugars corrected very nicely and the acidosis resolved. - COVID may have been the instigating for your acidosis. Thankfully from a COVID perspective you are doing quite well and given how many days you are into COVID we suspect you are on the tail end. Of course it may take some time to get your energy back up but each day here you have looked much better. - The community educator gave you information and a sliding scale for your insulin. Hopefully with some time you can wean from the insulin and be managed on oral diabetic medications. This can be closely monitored with your family doctor or can always get referred to Endocrinology to further manage. - Please follow the directions in the handout given by the ict educator. - Your A1c was 15 on check here in the hospital. This means your average sugar level is 384 which we would like to see trend down. Of course, this A1c will take some time to trend down and recommend recheck in 3 months which can be done with your family doctor - Will also prescribe a weeks worth of potassium and magnesium. As these can deplete in the serum when dealing with DKA and can be a bit depleted. Acute Kidney Injury: - You kidney number (creatinine) was a bit elevated on admission at 1.52 which was due to dehydration but is now 0.40 - Recommend to stay hydrated. Aim for urine that is pale yellow/clear High Cholesterol: - Continue your Rosuvastatin Pending Studies at Discharge: No Stand-Alone Forms: [employer], Smoking Cessation Medications and DC Order Prescriptions: New (DME) pen needle, diabetic [BD Ultra-Fine Jacklyn Pen Needle] 32 gauge x 5/32" needle See Rx Instructions .Route Qty: 50 RF: 0 (DME) OneTouch Verio test strips Strip See Rx Instructions .Route Qty: 150 RF: 0 (DME) lancets [OneTouch Delica Lancets] 33 gauge misc See Rx Instructions .Route Qty: 150 RF: 0 Basaglar KwikPen U-100 Insulin 100 unit/mL (3 mL) insulin pen 25 unit subcut QAM 30 Days Qty: 7.5 RF: 0 insulin aspart U-100 [Novolog Flexpen U-100 Insulin] 100 unit/mL (3 mL) insulin pen 1 sliding scale dose subcut USEASDIRECTD Qty: 15 RF: 0 potassium chloride 20 mEq tablet extended release 20 meq PO DAILY Qty: 7 RF: 0 magnesium oxide 400 mg (241.3 mg magnesium) tablet 400 mg PO DAILY Qty: 7 RF: 0 Continued metformin 500 mg tablet extended release 24 hr 500 mg PO BID RF: 0 rosuvastatin 5 mg tablet 5 mg PO DAILY RF: 0 aspirin 81 mg Tablet 81 mg PO DAILY RF: 0 Discharge Orders: Discharge Order (Routine); Ordered 05/31/21 Ordered By: Nancy Rogers Admission Data Admit Date/Time: 05/28/21 11:49 Attending Provider: Dami Rodrigues Admit Provider: Chelsi Travis Primary Care Provider: PCP,NO Other Providers: Chelsi Travis Other Interventions: Discharge Summary Assessment (RN) Last Done: 05/31/21 14:14 Supervising Physician Co-Signing Physician Notes Attending Attestation and Discharge Note - Pt seen/examined, chart reviewed, care plan d/w RADHA Rogers. I agree w/ the tyler components of her documentation. 56yo male with prior h/o diabetes who presented with DKA in the setting of COVID-19 illness. Treated in customary fashion with IV fluids, IV insulin, and supportive care. He did not require steroids or Remdesivir treatment for his COVID-19 as O2 sats were very normal while here. He was transitioned to a SC basal-bolus insulin regimen following resolution of his DKA. Glycemic control was good in the 24 hours prior to discharge. At discharge he will take lantus-novolog. With respect to metformin I would recommend he hold such and it can be decided later on whether to resume. Endo f/u was offered but he declined, instead wanting to initially f/u with his PCP for this. Discharge exam - gen - NAD, nontoxic, a/o x 3 mouth - MMM, no thrush neck - no JVD heart - RRR, s1 s2, no murmur lungs - CTA b/l abd - soft NT ND BS+ ext - no edema, pulses 2+ b/l skin - no rash Dami Rodrigues MD Coding Level of Care Code D/C DAY MANAGEMENT >30 MINS Diagnoses DKA (diabetic ketoacidosis) E11.10 Diabetes mellitus complication detail: without coma Diabetes mellitus type: type 2 Nausea & vomiting R11.2 Vomiting type: unspecified MARYLIN (acute kidney injury) N17.9 Pneumonia due to COVID-19 virus U07.1; J12.82 DM2 (diabetes mellitus, type 2) E11.9 Hyperlipidemia E78.5 Hyperlipidemia type: unspecified
== END 2021-05-31 16:35 | disposition home or self-care (01) | DRG 637 ==
LOC: MERGE 09:30 → ED 09:30 → SUATTDRO 11:49 → EDINP 11:49 → 2S 18:16

== ENCOUNTER 2023-05-30 01:11 | Inpatient (IN) ==
[2023-05-30] MEDS ORDERED: ONDANSETRON INJ 2 MG/ML 2 ML VIAL IV STA ×2 (01:30→03:57)
[2023-05-30] MEDS ORDERED: SODIUM CHLORIDE 0.9% 1,000 ML IV ONE ×3 (01:30→05:44)
[2023-05-30] MEDS ORDERED: ACETAMINOPHEN 1,000 MG/100 ML VIAL IV STA (01:32)
[2023-05-30 01:59] LABS: Basophils # (auto) 0.07 K/uL (0.00-0.20); Basophils % (auto) 0.6 %; Eosinophils # (auto) 0.01 K/uL (0.00-0.50); Eosinophils % (auto) 0.1 %; Hematocrit (blood only) 51.7 % (42.0-52.0); Hemoglobin 16.6 g/dl (14.0-18.0); Immature Granulocytes # (auto) 0.44 K/uL (0.01-0.20); Immature Granulocytes % (auto) 3.7 %; Lymphocytes # (auto) 1.42 K/uL (1.20-3.40); Lymphocytes % (auto) 11.8 %; Mean Corpuscular Hemoglobin 32.8 pg (25.0-34.0); Mean Corpuscular Hgb Conc 32.1 g/dL (32.0-36.0); Mean Corpuscular Volume 102.2 fL (80.0-100.0); Mean Platelet Volume 10.6 fL (9.4-12.4); Monocytes # (auto) 0.69 K/uL (0.11-0.59); Monocytes % (auto) 5.8 %; Neutrophils # (auto) 9.37 K/uL (1.40-6.50); Platelet Count 192 K/uL (130-400); RDW Coefficient of Variation 11.9 % (11.5-14.5); Red Blood Count 5.06 M/uL (4.70-6.10)
--- NOTE | 2023-05-30 02:20 | Emergency Department Note ---
Impression & Plan DKA (diabetic ketoacidosis), COVID, DM2 (diabetes mellitus, type 2) ED Provider Note CHIEF COMPLAINT: COVID-19, cough, vomiting, weakness HISTORY OF PRESENT ILLNESS: This is a 58-year-old male patient presents to the emergency department via private vehicle for evaluation of COVID-19 symptoms. The patient reports cough and tachypnea which began 2 days ago. He states about 6 hours prior to arrival, he developed nausea, vomiting, and is generally feeling weak. The patient states he is having difficulty keeping down fluids. He notes he is a type II diabetic. He states he had COVID-19 about 2 to 3 years ago and went into DKA. He states he required an admission at that time. The patient reports some difficulty getting a deep breath. He denies coughing up blood. He denies any fever. He states or chills. He denies chest pain or abdominal pain. No diarrhea or constipation. The patient states "I just thought it was better to get checked out". He did not take any medications for his symptoms. Of note, the patient states he is to be taking insulin, but has chosen not to take it and is uncertain how long it has been. He is concerned that it is causing him to gain weight and retain fluid. REVIEW OF SYSTEMS: A 10 system review of systems was performed with positives and pertinent negatives listed in the history of present illness. All other systems were reviewed and are negative. ALLERGIES: NKDA PHYSICAL EXAM: VITALS: Vitals are noted on the nurse's note and reviewed by myself. Patient is tachycardic and normotensive. He is afebrile. O2 saturation 99% on room air. GENERAL: This is a 58 year old male, tachypneic, ill-appearing but nontoxic, nondiaphoretic, well-developed well-nourished. SKIN: The skin was without rashes, erythema, edema, or bruising. There is no tenting of the skin. Capillary refill less than 2 seconds. HEAD: Normocephalic atraumatic. EARS: External auditory canals clear, tympanic membranes pearly bean without erythema or effusion bilaterally. No hemotympanum. Negative lanier sign EYES: Pupils equal round and reactive to light and accommodation. Conjunctivae without injection, sclerae without icterus. Extraocular movements intact. NOSE: Patent, turbinates without inflammation or discharge. No sinus tenderness. MOUTH: Mucous membranes moist. Tonsils are not enlarged. Pharynx without erythema or exudate. Uvula midline. Airway patent. Tongue does not deviate. NECK: Supple without nuchal rigidity. No lymphadenopathy. No thyromegaly. Cervical spine is nontender. No JVD. HEART: Regular rate and rhythm without murmurs gallops or rubs. LUNGS: Clear to auscultation bilaterally without wheezes, rales or rhonchi. No retractions or accessory muscle use. ABDOMEN: Positive bowel sounds x 4. Soft, nontender, without masses or organomegaly. Butler sign negative. No guarding or rebound tenderness. MUSCULOSKELETAL: No muscle atrophy, erythema, or edema noted. Full range of motion without joint tenderness in all extremities. No tenderness to palpation. Normal gait. Strength 5/5 throughout. NEURO: Patient was alert and oriented to person place and time. No focal neurological deficits. An order was placed for continuous surveillance monitor. The monitor showed a sinus tachycardia at a ventricular rate of 129 bpm, per my interpretation. EMERGENCY DEPARTMENT COURSE: This 58-year-old male patient presents to the emergency department today via private vehicle in the setting of COVID-19. The patient is feeling very weak. He has been vomiting and feeling fatigued since last evening. On initial evaluation, patient is tachycardic. O2 saturation 99% on room air. He is afebrile and normotensive. IV access was obtained, labs were drawn. The patient was hydrated with IV fluids. He was medicated with Zofran and acetaminophen. Labs were reviewed. Labs concerning for a mild leukocytosis of 12,000. CO2 4 and Glucose 392. Renal function, hepatic function, and electrolytes without significant abnormality. Procalcitonin 0.09. Patient was medicated with second liter of IV fluids. Repeat BMP and VBG concerning for acidotic state with a pH of less than 7, pCO2 of 18. CO2 is now 3, anion gap of 33, and blood glucose has increased further to 476. I discussed the case with Dr. Parks, [facility] hospitalist physician due to the acidotic state. Symptoms and workup here consistent with DKA. A second IV was obtained. Patient was started on an insulin drip. He was given a 3rd L of IV fluids to complete a 30mL/kg bolus and was placed on maintenance fluids. COVID-19 testing was completed and was positive. The patient will be admitted to the [facility] hospitalist service. The ICU was consulted. The patient will be admitted to the ICU. Please see hospitalist and ICU dictation regarding ongoing management and care of this patient. I have personally spent greater than 45 minutes of critical care time in the direct management of this patient to assess and manage high likelihood of life- threatening DKA. This includes bedside care, interpretation of diagnostic studies, and testing, discussion with consultants, patient, and family members, documentation time, and other required patient management activities. This 45 minutes is in excess of all separately billable procedures. Differential diagnosis includes Reactive airway disease, pneumonia, pneumothorax, COPD, CHF, infections, cardiac ischemia, pulmonary embolism, musculoskeletal, DKA, as well as other pathologies. I attest that I have personally reviewed the patient's current medication list. Patient was found to have normal blood pressure on screening and does not require follow-up. The chart was completed utilizing [employer] Speech voice recognition software. Grammatical errors, random word insertions, pronoun errors, and incomplete sentences are an occasional consequence of this system due to software limitations, ambient noise, and hardware issues. Any formal questions or concerns about the content, text, or information contained within the body of this dictation should be directly addressed to the provider for clarification. Past Med/Surg History Medical History Acute dehydration Nausea & vomiting M[place] (acute kidney injury) DKA (diabetic ketoacidosis) Hyperlipidemia DM2 (diabetes mellitus, type 2) Surgical History No pertinent past surgical history Family History Mother Stroke Father , Liver cancer Cancer Social History Smoking Status: Never smoker Hx Alcohol Use: Yes Alcohol Intake Frequency: 2-4 x/Month Hx Substance Use: No Preferred Language: Venezuelan Communication Ability: Effective Resident Care Supervisor Required: No Beliefs That Will Affect Care: None marital status: Current Living Situation: Spouse current occupational status: employed 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 [employer] Feels Safe at Home: Yes Assistive Devices: None Allergies Allergies Allergy/AdvReac Type Severity Reaction Status Date / Time No Known Allergies Allergy Unverified 05/29/21 00:29 Home Meds Home Medications Medication Instructions Recorded Confirmed aspirin 81 mg tablet 81 mg PO DAILY 05/28/21 05/28/21 metformin 500 mg tablet,extended 500 mg PO BID 05/28/21 05/28/21 release 24 hr rosuvastatin 5 mg tablet 5 mg PO DAILY 05/28/21 05/28/21 Previous Rx's Medication Instructions Recorded blood sugar diagnostic ([email or web address] #150 ea 05/31/21 Verio test strips) insulin aspart U-100 100 unit/mL 1 sliding scale dose subcut 05/31/21 (3 mL) subcutaneous pen (Novolog USEASDIRECTD #15 mL FlexPen U-100 Insulin aspart) lancets 33 gauge ([email or web address] Delica #150 ea 05/31/21 Lancets) magnesium oxide 400 mg (241.3 mg 400 mg PO DAILY #7 tabs 05/31/21 magnesium) tablet pen needle, diabetic 32 gauge x #50 ea 05/31/2132" (BD Ultra-Fine Jacklyn Pen Needle) potassium chloride 20 mEq 20 meq PO DAILY #7 tabs 05/31/21 tablet,extended release Results & Data (ED) Vital Signs Vital Signs - 24 hr 05/30/23 01:13 05/30/23 01:48 05/30/23 01:48 Temperature 36.6 C Temperature Source Temporal Artery Scan Pulse Rate 135 H Pulse Rate [Right Finger] 105 H Pulse Rate from SpO2 Sensor Respiratory Rate 20 22 Blood Pressure 138/84 Blood Pressure [Right Arm] 136/84 Blood Pressure Mean 102 Blood Pressure Mean [Right Arm] 101 Pulse Oximetry 99 98 97 Oxygen Delivery Method Room Air Room Air Room Air Sepsis Recent Fever Within 48 Hours No Sepsis New/Unexplained Change in Mental Status No Sepsis Action Taken by Nursing No Action Required 05/30/23 01:49 05/30/23 01:49 05/30/23 02:00 Temperature Temperature Source Pulse Rate 113 H 113 H 111 H Pulse Rate [Right Finger] Pulse Rate from SpO2 Sensor 113 H 110 H Respiratory Rate 14 19 Blood Pressure Blood Pressure [Right Arm] Blood Pressure Mean Blood Pressure Mean [Right Arm] Pulse Oximetry 98 99 Oxygen Delivery Method Sepsis Recent Fever Within 48 Hours Sepsis New/Unexplained Change in Mental Status Sepsis Action Taken by Nursing 05/30/23 02:15 05/30/23 02:30 05/30/23 02:39 Temperature Temperature Source Pulse Rate 110 H 113 H Pulse Rate [Right Finger] 115 H Pulse Rate from SpO2 Sensor 110 H 113 H Respiratory Rate 15 17 20 Blood Pressure Blood Pressure [Right Arm] 145/91 H Blood Pressure Mean Blood Pressure Mean [Right Arm] 109 Pulse Oximetry 99 99 100 Oxygen Delivery Method Room Air Sepsis Recent Fever Within 48 Hours Sepsis New/Unexplained Change in Mental Status Sepsis Action Taken by Nursing 05/30/23 02:40 05/30/23 02:40 05/30/23 02:45 Temperature Temperature Source Pulse Rate 115 H 115 H Pulse Rate [Right Finger] Pulse Rate from SpO2 Sensor 115 H 115 H Respiratory Rate 17 21 Blood Pressure 145/91 H Blood Pressure [Right Arm] Blood Pressure Mean 103 Blood Pressure Mean [Right Arm] Pulse Oximetry 100 100 Oxygen Delivery Method Sepsis Recent Fever Within 48 Hours Sepsis New/Unexplained Change in Mental Status Sepsis Action Taken by Nursing 05/30/23 03:00 05/30/23 03:00 05/30/23 03:15 Temperature Temperature Source Pulse Rate 129 H 114 H Pulse Rate [Right Finger] Pulse Rate from SpO2 Sensor 115 H 114 H Respiratory Rate 19 18 Blood Pressure 146/87 H Blood Pressure [Right Arm] Blood Pressure Mean 108 Blood Pressure Mean [Right Arm] Pulse Oximetry 99 99 Oxygen Delivery Method Sepsis Recent Fever Within 48 Hours Sepsis New/Unexplained Change in Mental Status Sepsis Action Taken by Nursing 05/30/23 03:30 05/30/23 03:45 05/30/23 04:00 Temperature Temperature Source Pulse Rate 181 H 118 H Pulse Rate [Right Finger] Pulse Rate from SpO2 Sensor 116 H 118 H Respiratory Rate 17 23 Blood Pressure 163/89 H Blood Pressure [Right Arm] Blood Pressure Mean 129 Blood Pressure Mean [Right Arm] Pulse Oximetry 99 100 Oxygen Delivery Method Sepsis Recent Fever Within 48 Hours Sepsis New/Unexplained Change in Mental Status Sepsis Action Taken by Nursing 05/30/23 04:00 05/30/23 05:28 05/30/23 05:48 Temperature Temperature Source Pulse Rate 248 H 129 H Pulse Rate [Right Finger] 126 H Pulse Rate from SpO2 Sensor 117 H Respiratory Rate 24 22 Blood Pressure Blood Pressure [Right Arm] Blood Pressure Mean Blood Pressure Mean [Right Arm] Pulse Oximetry 99 99 Oxygen Delivery Method Sepsis Recent Fever Within 48 Hours Sepsis New/Unexplained Change in Mental Status Sepsis Action Taken by Nursing Laboratory Data 05/30/23 01:38 05/30/23 04:32 Lab Results 05/30/23 05/30/23 05/30/23 Range/Units 01:38 04:32 05:08 WBC 12.00 H (4.8-10.8) K/ul RBC 5.06 (4.70-6.10) M/uL Hgb 16.6 (14.0-18.0) g/dl Hct 51.7 (42.0-52.0) % MCV 102.2 H (80.0-100.0) fL MCH 32.8 (25.0-34.0) pg MCHC 32.1 (32.0-36.0) g/dL RDW Std Deviation 45.0 (36.4-46.3) fL RDW Coeff of Davon 11.9 (11.5-14.5) % Plt Count 192 (130-400) K/uL MPV 10.6 (9.4-12.4) fL Immature Gran % (Auto) 3.7 % Neut % (Auto) 78.0 % Lymph % (Auto) 11.8 % Tyler % (Auto) 5.8 % Eos % (Auto) 0.1 % Baso % (Auto) 0.6 % Neut # (Auto) 9.37 H (1.40-6.50) K/uL Lymph # (Auto) 1.42 (1.20-3.40) K/uL Tyler # (Auto) 0.69 H (0.11-0.59) K/uL Eos # (Auto) 0.01 (0.00-0.50) K/uL Baso # (Auto) 0.07 (0.00-0.20) K/uL Immature Gran # (Auto) 0.44 H (0.01-0.20) K/uL VBG pH < 7.00 L (7.36-7.41) VBG pCO2 18 L (38-50) mmHg VBG pO2 64 mmHg VBG HCO3 TNP VBG O2 Saturation 88.3 % VBG Base Excess TNP Sodium 140 140 (136-145) mmol/L Potassium 4.0 4.3 (3.5-5.1) mmol/L Chloride 102 104 (98-107) mmol/L Carbon Dioxide 4 L* 3 L* (21-32) mmol/L Anion Gap 34 H 33 H (3-11) BUN 13 14 (6-23) mg/dl Creatinine 1.16 1.09 (0.6-1.4) mg/dl Est Cr Clr Drug Dosing 78.4 83.5 ml/min Est GFR ( Amer) 80.0 86.3 ml/min Est GFR (Non-Af Amer) 69.0 74.4 ml/min BUN/Creatinine Ratio 11.2 12.8 (10-20) Glucose 392 H* 476 H* (70-99(Fasting)) mg/dl POC Glucose (70-99) mg/dl Calcium 9.0 8.5 L (8.6-10.3) mg/dl Total Bilirubin 0.4 (0.2-1.0) mg/dl AST 14 (13-39) U/L ALT 14 (7-52) U/L Alkaline Phosphatase 78 (34-104) U/L Total Protein 8.1 (6.0-8.3) gm/dl Albumin 4.5 (3.4-5.0) gm/dl Globulin 3.6 (2.5-4.0) gm/dl Albumin/Globulin Ratio 1.3 (0.9-2) Procalcitonin 0.09 (0-0.5) ng/ml Urine Color Yellow Urine Appearance Clear (Clear) Urine pH 5.5 (4.5-7.5) Ur Specific [place] >= 1.030 (1.000-1.030) Urine Protein 3+ H (Negative) Urine Glucose (UA) 2+ H (Negative) Urine Ketones 4+ H (Negative) Urine Blood 2+ H (Negative) Urine Nitrite Negative (Negative) Urine Bilirubin 1+ H (Negative) Urine Urobilinogen Negative (Negative) Ur Leukocyte Esterase Negative (Negative) Urine RBC 0-4 (0-4) /hpf Urine WBC 0-5 (0-5) /hpf Ur Epithelial Cells 0-5 (0-5) /lpf Urine Bacteria Negative (Negative) Hyaline Casts 0-5 (0-5) /lpf 05/30/23 Range/Units 06:15 WBC (4.8-10.8) K/ul RBC (4.70-6.10) M/uL Hgb (14.0-18.0) g/dl Hct (42.0-52.0) % MCV (80.0-100.0) fL MCH (25.0-34.0) pg MCHC (32.0-36.0) g/dL RDW Std Deviation (36.4-46.3) fL RDW Coeff of Davon (11.5-14.5) % Plt Count (130-400) K/uL MPV (9.4-12.4) fL Immature Gran % (Auto) % Neut % (Auto) % Lymph % (Auto) % Tyler % (Auto) % Eos % (Auto) % Baso % (Auto) % Neut # (Auto) (1.40-6.50) K/uL Lymph # (Auto) (1.20-3.40) K/uL Tyler # (Auto) (0.11-0.59) K/uL Eos # (Auto) (0.00-0.50) K/uL Baso # (Auto) (0.00-0.20) K/uL Immature Gran # (Auto) (0.01-0.20) K/uL VBG pH (7.36-7.41) VBG pCO2 (38-50) mmHg VBG pO2 mmHg VBG HCO3 VBG O2 Saturation % VBG Base Excess Sodium (136-145) mmol/L Potassium (3.5-5.1) mmol/L Chloride (98-107) mmol/L Carbon Dioxide (21-32) mmol/L Anion Gap (3-11) BUN (6-23) mg/dl Creatinine (0.6-1.4) mg/dl Est Cr Clr Drug Dosing ml/min Est GFR ( Amer) ml/min Est GFR (Non-Af Amer) ml/min BUN/Creatinine Ratio (10-20) Glucose (70-99(Fasting)) mg/dl POC Glucose 473 H* (70-99) mg/dl Calcium (8.6-10.3) mg/dl Total Bilirubin (0.2-1.0) mg/dl AST (13-39) U/L ALT (7-52) U/L Alkaline Phosphatase (34-104) U/L Total Protein (6.0-8.3) gm/dl Albumin (3.4-5.0) gm/dl Globulin (2.5-4.0) gm/dl Albumin/Globulin Ratio (0.9-2) Procalcitonin (0-0.5) ng/ml Urine Color Urine Appearance (Clear) Urine pH (4.5-7.5) Ur Specific [place] (1.000-1.030) Urine Protein (Negative) Urine Glucose (UA) (Negative) Urine Ketones (Negative) Urine Blood (Negative) Urine Nitrite (Negative) Urine Bilirubin (Negative) Urine Urobilinogen (Negative) Ur Leukocyte Esterase (Negative) Urine RBC (0-4) /hpf Urine WBC (0-5) /hpf Ur Epithelial Cells (0-5) /lpf Urine Bacteria (Negative) Hyaline Casts (0-5) /lpf Administered Medications Sodium Chloride (Nss) 1,000 mls @ 999 mls/hr IV .Q1H1M ONE Stop: 05/30/23 06:44 Last Admin: 05/30/23 06:12 Dose: 999 mls/hr Documented By: Discontinued Medications Sodium Chloride (Nss) 1,000 mls @ 999 mls/hr IV .Q1H1M ONE Stop: 05/30/23 02:30 Last Infusion: 05/30/23 02:33 Dose: Infused Documented By: Admin: 05/30/23 01:40 Dose: 999 mls/hr Documented By: LIZ Acetaminophen (Ofirmev) 1,000 mg in 100 mls @ 400 mls/hr IV NOW STA Stop: 05/30/23 01:46 Last Infusion: 05/30/23 01:54 Dose: Infused Documented By: Admin: 05/30/23 01:41 Dose: 400 mls/hr Documented By: GORDONW Sodium Chloride (Nss) 1,000 mls @ 999 mls/hr IV .Q1H1M ONE Stop: 05/30/23 03:48 Last Infusion: 05/30/23 04:31 Dose: Infused Documented By: Admin: 05/30/23 02:59 Dose: 999 mls/hr Documented By: GORDONW Ondansetron HCl (Ondansetron Inj 2 Mg/Ml 2 Ml Vial) 4 mg IV NOW STA Stop: 05/30/23 01:31 Last Admin: 05/30/23 01:40 Dose: 4 mg Documented By: ASW Ondansetron HCl (Ondansetron Inj 2 Mg/Ml 2 Ml Vial) 4 mg IV NOW STA Stop: 05/30/23 03:58 Last Admin: 05/30/23 05:05 Dose: 4 mg Documented By: Discharge Plan Visit Data Chief Complaint: Illness ED Provider: Bree Gong ED Midlevel Provider: Amelie Cevallos Discharge Problem: DKA (diabetic ketoacidosis), COVID, DM2 (diabetes mellitus, type 2) Patient Disposition: Admitted As Inpatient Forms Stand Alone Forms: My [facility] Prescriptions Prescriptions: No Action metformin 500 mg tablet extended release 24 hr 500 mg PO BID rosuvastatin 5 mg tablet 5 mg PO DAILY aspirin 81 mg Tablet 81 mg PO DAILY Rx Instructions: 4x/week (DME) pen needle, diabetic [BD Ultra-Fine Jacklyn Pen Needle] 32 gauge x 5/32" needle See Rx Instructions .Route Qty: 50 0RF Rx Instructions: As directed (DME) OneTouch Verio test strips Strip See Rx Instructions .Route Qty: 150 0RF Rx Instructions: test five times a day (DME) lancets [OneTouch Delica Lancets] 33 gauge misc See Rx Instructions .Route Qty: 150 0RF Rx Instructions: test 5 times a day insulin aspart U-100 [Novolog FlexPen U-100 Insulin] 100 unit/mL (3 mL) insulin pen 1 sliding scale dose subcut USEASDIRECTD Qty: 15 0RF Rx Instructions: According to carb coverage and sliding scale up to 40-50 units/day potassium chloride 20 mEq tablet extended release 20 meq PO DAILY Qty: 7 0RF magnesium oxide 400 mg (241.3 mg magnesium) tablet 400 mg PO DAILY Qty: 7 0RF Referrals Referrals: Thalia Vela [Primary Care Provider] -
[2023-05-30 02:36] LABS: Albumin Globulin Ratio 1.3 (0.9-2); Albumin Level 4.5 gm/dl (3.4-5.0); BUN Creatinine Ratio 11.2 (10-20); Bilirubin,Total 0.4 mg/dl (0.2-1.0); Creatinine Clr Calc Pharmacy 78.4 ml/min; Globulin 3.6 gm/dl (2.5-4.0); Total Protein 8.1 gm/dl (6.0-8.3)
[2023-05-30 04:38] LABS: Oxygen Saturation VBG 88.3 %; PCO2 VBG 18 mmHg (38-50); PO2 VBG 64 mmHg; pH VBG < 7.00 (7.36-7.41)
[2023-05-30 05:29] LABS: Appearance Urine Clear (Clear); Bilirubin Urine 1+ (Negative); Blood Urine 2+ (Negative); Color Urine Yellow; Glucose Urine UA 2+ (Negative); Ketones Urine 4+ (Negative); Leukocyte Esterase Urine Negative (Negative); Nitrite Urine Negative (Negative); Protein Urine 3+ (Negative); Specific Gravity Urine >= 1.030 (1.000-1.030); Urobilinogen Urine Negative (Negative); pH Urine 5.5 (4.5-7.5)
[2023-05-30 05:38] LABS: BUN Creatinine Ratio 12.8 (10-20); Calcium 8.5 mg/dl (8.6-10.3); Creatinine Clr Calc Pharmacy 83.5 ml/min; Est GFR (African American) 86.3 ml/min; Est GFR (Non-African American) 74.4 ml/min; Potassium 4.3 mmol/L (3.5-5.1)
[2023-05-30] MEDS ORDERED: GLUCOSE 40% GEL 15 GM TUBE PO PRN (05:44)
[2023-05-30] MEDS ORDERED: DKA GOAL RANGE 150-250 mg/dl ONE (05:44)
[2023-05-30] MEDS ORDERED: CARBOHYDRATES FOR HYPOGLYCEMIA PO PRN (05:44)
[2023-05-30] MEDS ORDERED: DEXTROSE 50% 50 ML SYRINGE IV PRN (05:44)
[2023-05-30] MEDS ORDERED: GLUCAGON FOR INJ 1 MG VIAL SQ PRN (05:44)
[2023-05-30] MEDS ORDERED: GLUCOSE 10 TAB/TUBE PO PRN (05:44)
[2023-05-30] MEDS ORDERED: STAT IV Infusion **Titration per Protocol STA (05:44)
[2023-05-30] MEDS ORDERED: NSS + 20MEQ KCL 20 MEQ/1,000 ML BAG IV SCH (05:45)
[2023-05-30 06:03] LABS: Bacteria Urine Negative (Negative); Epithelial Cell Urine 0-5 /lpf (0-5); Hyaline Casts Urine 0-5 /lpf (0-5); RBC Urine 0-4 /hpf (0-4); WBC Urine 0-5 /hpf (0-5)
[2023-05-30] MEDS ORDERED: SODIUM BICARBONATE 8.4% 150 MEQ in WATER, STERILE 1,000 ML IV SCH (06:15)
[2023-05-30] MEDS ORDERED: PHARMACY GLYCEMIC MGMT CONSULT PRN (06:19)
--- NOTE | 2023-05-30 06:20 | History & Physical Report ---
Date of Service May 30, 2023 Assessment & Plan (1) DKA (diabetic ketoacidosis): Plan: 58 yo male with PMHx of DM2 and HLD presents with illness. #DKA #DM2 -presents with 3 days ongoing cough, sob, weakness. Labs consistent with DKA. Likely secondary to medication noncompliance with superimposed covid. -CXR unremarkable -DKA protocol - insulin gtt, IVF w/ K -VBG with severe acidosis - started on bicarb gtt - ABG pending -monitor labs -admitted to ICU -hold metformin -pharmacy glycemic management #COVID -on admission +covid. O2 saturation doing well on RA. Supportive care. #HLD -cont. statin DVT ppx: lovenox FEN/GI: NPO Code Status: full Dispo: ICU (2) DM2 (diabetes mellitus, type 2): (3) Hyperlipidemia: (4) COVID: History of Present Illness Chief Complaint: DKA Primary Care Provider: Thalia Vela 58 yo male with PMHx of DM2 and HLD presents with illness. 3 days ago patient developed a productive cough which has been persistent since. He has had associated fatigue, weakness, shortness of breath, nausea, and some vomiting. Denies fevers, chills, chest pain, abdominal pain, diarrhea, dysuria, urinary frequency. He tested positive for COVID with a home test prior to ED arrival. He has been noncompliant with his insulin at home. He was hospitalized about 1 year ago for DKA as well with COVID. Allergies Allergy/AdvReac Type Severity Reaction Status Date / Time No Known Allergies Allergy Unverified 05/29/21 00:29 Home Medications Medication Instructions Recorded Confirmed Type aspirin 81 mg tablet 81 mg PO DAILY 05/28/21 05/28/21 History metformin 500 mg tablet,extended 500 mg PO BID 05/28/21 05/28/21 History release 24 hr rosuvastatin 5 mg tablet 5 mg PO DAILY 05/28/21 05/28/21 History blood sugar diagnostic (ADINCON #150 ea 05/31/21 Rx Verio test strips) insulin aspart U-100 100 unit/mL 1 sliding scale dose subcut 05/31/21 Rx (3 mL) subcutaneous pen (Novolog USEASDIRECTD #15 mL FlexPen U-100 Insulin aspart) lancets 33 gauge (ADINCON [place] #150 ea 05/31/21 Rx Lancets) magnesium oxide 400 mg (241.3 mg 400 mg PO DAILY #7 tabs 05/31/21 Rx magnesium) tablet pen needle, diabetic 32 gauge x #50 ea 05/31/21 Rx " (BD Ultra-Fine Jacklyn Pen Needle) potassium chloride 20 mEq 20 meq PO DAILY #7 tabs 05/31/21 Rx tablet,extended release Past Med/Surg History Medical History Acute dehydration Nausea & vomiting MARYLIN (acute kidney injury) DKA (diabetic ketoacidosis) Hyperlipidemia DM2 (diabetes mellitus, type 2) Surgical History No pertinent past surgical history Family History Mother Stroke Father , Liver cancer Cancer Social History Smoking Status: Never smoker Hx Alcohol Use: Yes Alcohol Intake Frequency: 2-4 x/Month Hx Substance Use: No Preferred Language: Arabic Communication Ability: Effective Coater Carbon Paper Required: No Beliefs That Will Affect Care: None marital status: Current Living Situation: Spouse current occupational status: employed 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 AOx3. Vitals as above. HEENT: No scleral injection or discharge.Dry mucous membranes. Neck: Supple without lymphadenopathy or thyromegaly. Trachea midline. Lungs: No wheezes/rales/rhonchi. +kussmaul breathing. Cardiac: Regular rate and rhythm. No murmurs. No lower extremity edema. 2+ distal peripheral pulses. Abdomen: Bowel sounds present. Soft, nontender, and nondistended.No guarding. No hepatosplenomegaly. MSK: No cyanosis or clubbing. Extremities motor strength 5/5. Skin: No rashes, warm, dry. Neurologic: no focal deficits Results & Data Results & Data Vital Signs (Past 12 Hours) Vital Signs Temp Pulse Pulse Resp BP BP Pulse Ox 05/30/23 05:48 129 H 05/30/23 05:28 126 H 22 99 05/30/23 04:00 248 H 24 99 05/30/23 04:00 163/89 H 05/30/23 03:45 118 H 23 100 05/30/23 03:30 181 H 17 99 05/30/23 03:15 114 H 18 99 05/30/23 03:00 146/87 H 05/30/23 03:00 129 H 19 99 05/30/23 02:45 115 H 21 100 05/30/23 02:40 115 H 17 100 05/30/23 02:40 145/91 H 05/30/23 02:39 115 H 20 145/91 H 100 05/30/23 02:30 113 H 17 99 05/30/23 02:15 110 H 15 99 05/30/23 02:00 111 H 19 99 05/30/23 01:49 113 H 14 98 05/30/23 01:49 113 H 05/30/23 01:48 97 05/30/23 01:48 105 H 22 136/84 98 05/30/23 01:13 36.6 C 135 H 20 138/84 99 O2 Del Method 05/30/23 05:48 05/30/23 05:28 05/30/23 04:00 05/30/23 04:00 05/30/23 03:45 05/30/23 03:30 05/30/23 03:15 05/30/23 03:00 05/30/23 03:00 05/30/23 02:45 05/30/23 02:40 05/30/23 02:40 05/30/23 02:39 Room Air 05/30/23 02:30 05/30/23 02:15 05/30/23 02:00 05/30/23 01:49 05/30/23 01:49 05/30/23 01:48 Room Air 05/30/23 01:48 Room Air 05/30/23 01:13 Room Air Laboratory Results Laboratory Results WBC 12.00 K/ul (4.8-10.8) H 05/30/23 01:38 RBC 5.06 M/uL (4.70-6.10) 05/30/23 01:38 Hgb 16.6 g/dl (14.0-18.0) 05/30/23 01:38 Hct 51.7 % (42.0-52.0) 05/30/23 01:38 MCV 102.2 fL (80.0-100.0) H 05/30/23 01:38 MCH 32.8 pg (25.0-34.0) 05/30/23 01:38 MCHC 32.1 g/dL (32.0-36.0) 05/30/23 01:38 RDW Std Deviation 45.0 fL (36.4-46.3) 05/30/23 01:38 RDW Coeff of Davon 11.9 % (11.5-14.5) 05/30/23 01:38 Plt Count 192 K/uL (130-400) 05/30/23 01:38 MPV 10.6 fL (9.4-12.4) 05/30/23 01:38 Immature Gran % (Auto) 3.7 % 05/30/23 01:38 Neut % (Auto) 78.0 % 05/30/23 01:38 Lymph % (Auto) 11.8 % 05/30/23 01:38 Winn % (Auto) 5.8 % 05/30/23 01:38 Eos % (Auto) 0.1 % 05/30/23 01:38 Baso % (Auto) 0.6 % 05/30/23 01:38 Neut # (Auto) 9.37 K/uL (1.40-6.50) H 05/30/23 01:38 Lymph # (Auto) 1.42 K/uL (1.20-3.40) 05/30/23 01:38 Winn # (Auto) 0.69 K/uL (0.11-0.59) H 05/30/23 01:38 Eos # (Auto) 0.01 K/uL (0.00-0.50) 05/30/23 01:38 Baso # (Auto) 0.07 K/uL (0.00-0.20) 05/30/23 01:38 Immature Gran # (Auto) 0.44 K/uL (0.01-0.20) H 05/30/23 01:38 VBG pH < 7.00 (7.36-7.41) L 05/30/23 04:32 VBG pCO2 18 mmHg (38-50) L 05/30/23 04:32 VBG pO2 64 mmHg 05/30/23 04:32 VBG HCO3 TNP 05/30/23 04:32 VBG O2 Saturation 88.3 % 05/30/23 04:32 VBG Base Excess TNP 05/30/23 04:32 Sodium 140 mmol/L (136-145) 05/30/23 04:32 Potassium 4.3 mmol/L (3.5-5.1) 05/30/23 04:32 Chloride 104 mmol/L (98-107) 05/30/23 04:32 Carbon Dioxide 3 mmol/L (21-32) L* 05/30/23 04:32 Anion Gap 33 (3-11) H 05/30/23 04:32 BUN 14 mg/dl (6-23) 05/30/23 04:32 Creatinine 1.09 mg/dl (0.6-1.4) 05/30/23 04:32 Est Cr Clr Drug Dosing 83.5 ml/min 05/30/23 04:32 Est GFR ( Amer) 86.3 ml/min 05/30/23 04:32 Est GFR (Non-Af Amer) 74.4 ml/min 05/30/23 04:32 BUN/Creatinine Ratio 12.8 (10-20) 05/30/23 04:32 Glucose 476 mg/dl (70-99(Fasting)) H* 05/30/23 04:32 POC Glucose 473 mg/dl (70-99) H* 05/30/23 06:15 Calcium 8.5 mg/dl (8.6-10.3) L 05/30/23 04:32 Total Bilirubin 0.4 mg/dl (0.2-1.0) 05/30/23 01:38 AST 14 U/L (13-39) 05/30/23 01:38 ALT 14 U/L (7-52) 05/30/23 01:38 Alkaline Phosphatase 78 U/L (34-104) 05/30/23 01:38 Total Protein 8.1 gm/dl (6.0-8.3) 05/30/23 01:38 Albumin 4.5 gm/dl (3.4-5.0) 05/30/23 01:38 Globulin 3.6 gm/dl (2.5-4.0) 05/30/23 01:38 Albumin/Globulin Ratio 1.3 (0.9-2) 05/30/23 01:38 Procalcitonin 0.09 ng/ml (0-0.5) 05/30/23 01:38 Urine Color Yellow 05/30/23 05:08 Urine Appearance Clear (Clear) 05/30/23 05:08 Urine pH 5.5 (4.5-7.5) 05/30/23 05:08 Ur Specific Chinle >= 1.030 (1.000-1.030) 05/30/23 05:08 Urine Protein 3+ (Negative) H 05/30/23 05:08 Urine Glucose (UA) 2+ (Negative) H 05/30/23 05:08 Urine Ketones 4+ (Negative) H 05/30/23 05:08 Urine Blood 2+ (Negative) H 05/30/23 05:08 Urine Nitrite Negative (Negative) 05/30/23 05:08 Urine Bilirubin 1+ (Negative) H 05/30/23 05:08 Urine Urobilinogen Negative (Negative) 05/30/23 05:08 Ur Leukocyte Esterase Negative (Negative) 05/30/23 05:08 Urine RBC 0-4 /hpf (0-4) 05/30/23 05:08 Urine WBC 0-5 /hpf (0-5) 05/30/23 05:08 Ur Epithelial Cells 0-5 /lpf (0-5) 05/30/23 05:08 Urine Bacteria Negative (Negative) 05/30/23 05:08 Hyaline Casts 0-5 /lpf (0-5) 05/30/23 05:08 Critical Care Time 45 minutes Supervising Physician Co-Signing Physician Notes Attending addendum: I have physically seen this patient, have supervised the medical residents activities, and agree with the H&P unless as otherwise noted. Assessment and Plan: Severe DKA- Medical noncompliance, with patient not taking insulin Admitted to intensive care unit, with pH less than 7 Advised to begin insulin bolus/drip per protocol Has received 2 L normal saline, recommending additional 1 L for 3 L bolus in ED Then start NSS + KCl 20 mill equivalents at 250 mL/h Placed on D5 half-normal saline plus KCl 20 mEq at 50 mL/h when BSG is less than 250 Follow serial renal function panel, magnesium, phosphorus and VBG every 4 hours Consult red hat engineer team COVID-19 infection- Oxygen saturation 97 to 99% on room air More likely a bystander infection as opposed to causing the above Resident Activity Tracking Resident Involvement: Resident Care Provided Care Provided: Adult Hospital Medicine (1) DKA (diabetic ketoacidosis) Diabetes mellitus complication detail: without coma Diabetes mellitus type: type 2 Qualified Code(s): E11.10 - Type 2 diabetes mellitus with ketoacidosis without coma (3) Hyperlipidemia Hyperlipidemia type: unspecified Qualified Code(s): E78.5 - Hyperlipidemia, unspecified
[2023-05-30] MEDS: INSULIN REGULAR 250 UNITS in SODIUM CHLORIDE 0.9% 247.5 ML IV SCH (06:25)
[2023-05-30] MEDS ORDERED: NovoLIN-R BOLUS FROM BAG IV ONE (06:30)
[2023-05-30 06:35] LABS: Oxygen Saturation ABG 99.4 % (90-95); PCO2 ABG 9 mmHg (35-46); PO2 ABG 143 mmHg (80-95)
[2023-05-30 06:37] LABS: Allen Test Pos (Pos)
[2023-05-30 06:43] LABS: pH ABG < 7.00 (7.35-7.45)
[2023-05-30 06:43] LABS: Magnesium 2.1 mg/dl (1.7-2.4); Phosphorus 4.9 mg/dl (2.5-4.9)
[2023-05-30 06:46] LABS: Influenza A virus by PCR Negative (Neg); Influenza B virus by PCR Negative (Neg); RSV by PCR Negative (Neg)
[2023-05-30 06:50] LABS: SARS CoV2 RNA(COVID-19) Ceph POSITIVE (Negative)
--- NOTE | 2023-05-30 07:37 | XRay Report ---
XR chest 1V portable HISTORY: covid-19, cough COMPARISON: Chest 05/28/2021. FINDINGS: The lungs are clear. Cardiac silhouette is normal in size. No pleural effusions. No pneumot horax. IMPRESSION: No acute process. ACT 112: Negative or not required by law. Electronically signed by: Jt Webber M.D. 05/30/2023 7:36 AM
[2023-05-30 07:38] LABS: Estimated Average Glucose 349 mg/dl; Hemoglobin A1C 13.8 % (4.5-5.6)
[2023-05-30] MEDS: INSULIN ASPART PER UNIT CHARGE SC SCH ×3 (08:22→19:20)
[2023-05-30] MEDS ORDERED: ACETAMINOPHEN 325 MG TAB PO PRN (08:23)
[2023-05-30] MEDS ORDERED: POLYETHYLENE (MIRALAX) 17 GM PACK PO PRN (08:23)
[2023-05-30] MEDS ORDERED: ONDANSETRON 4 MG OD TAB PO PRN (08:23)
[2023-05-30] MEDS ORDERED: PNEUMOCOCCAL VACCINE (PCV20) 20-VAL CONJ-DIP CRM/PF 0.5 ML SYR IM ONE (08:31)
--- NOTE | 2023-05-30 08:31 | Critical Care Consultation ---
Date of Consultation May 30, 2023 Assessment & Plan (1) DKA (diabetic ketoacidosis): (2) DM2 (diabetes mellitus, type 2): (3) Hyperlipidemia: (4) COVID: Plan Patient is a 58 yo M with PMHx of T2DM, HLD, HTN presents with cough, shortness of breath, nausea, vomiting. 1) DKA/ T2DM/ possible HHS -presents with 3 days ongoing cough, sob, weakness. Labs consistent with DKA. Likely secondary to medication noncompliance with superimposed covid. - DKA protocol - insulin gtt, IVF w/ K - VBG with severe acidosis: pH < 7.00, pCO2 18, pO2, 64 - started on bicarb gtt - ABG: pH < 7.00, pCO2 9, pO2, 143 - repeat ABG (3 hrs later): pH = 6.98, pCO2 9, pO2, 134 -monitor labs, repeat as necessary K, 4.0 AG, 34 Glu, 504 -admitted to ICU - pt not prescribed metformin for over a year - pt trialed semaglutide but apparently discontinued it after starting dose because it "had no effect on blood sugar levels"; patient unaware that dose escalation is part of treatment -pharmacy glycemic management 2) COVID -on admission +covid. O2 saturation doing well on RA. - CXR unremarkable - Supportive care. 3)HLD -cont. statin DVT ppx: lovenox FEN/GI: NPO Code Status: full Dispo: ICU Supervising Physician Co-Signing Physician Notes Dr. Valdez was resident physician during care of patient. I separately evaluated patient for tyler portions of the history and the exam. I was present during the critical portion of medical decision making, and I discussed the case with the resident. I generally agree with the findings and plan. Initiate bicarb infusion, given 2 A of bicarb for pH 6.97. Placed arterial line for frequent blood draws. This may represent hyperosmolar coma, notes indicate patient is supposed to be on insulin pump, he is not checking his pressures blood sugars nor is a pump present. Additionally he is not taking metformin so therefore he has not doing any diabetes management. I have personally spent 40 minutes of critical care time in the direct management of this patient. This is a life/limb threatening event. This includes time spent evaluating patient, direct bedside care, chart review, placing orders, interpretation of diagnostic studies, discussion with consultants, patient, and/or family members regarding treatment decisions, as well as other required patient management activities. This time is exclusive of all separately billable procedures, and teaching time and separate from and in addition to any other critical care service time. History of Present Illness Attending Physician: Yoshi Parks MD History of Present Illness Patient is a 58 yo male with PMHx of T2DM and HLD presents with illness. 3 days ago patient developed a productive cough which has been persistent since. He has had associated fatigue, weakness, shortness of breath, nausea, and some vomiting. Denies fevers, chills, chest pain, abdominal pain, diarrhea, dysuria, increased urinary frequency. He tested positive for COVID with a home test prior to ED arrival. He has been noncompliant with his insulin at home. He was hospitalized about 1 year ago for DKA as well with COVID. Allergies Allergy/AdvReac Type Severity Reaction Status Date / Time No Known Allergies Allergy Unverified 05/29/21 00:29 Home Medications Medication Instructions Recorded Confirmed Type aspirin 81 mg tablet 81 mg PO DAILY 05/28/21 05/28/21 History metformin 500 mg tablet,extended 500 mg PO BID 05/28/21 05/28/21 History release 24 hr rosuvastatin 5 mg tablet 5 mg PO DAILY 05/28/21 05/28/21 History blood sugar diagnostic (GentronixTouch #150 ea 05/31/21 Rx Verio test strips) insulin aspart U-100 100 unit/mL 1 sliding scale dose subcut 05/31/21 Rx (3 mL) subcutaneous pen (Novolog USEASDIRECTD #15 mL FlexPen U-100 Insulin aspart) lancets 33 gauge (OneTouch [place] #150 ea 05/31/21 Rx Lancets) magnesium oxide 400 mg (241.3 mg 400 mg PO DAILY #7 tabs 05/31/21 Rx magnesium) tablet pen needle, diabetic 32 gauge x #50 ea 05/31/21 Rx 5/32" (BD Ultra-Fine Jacklyn Pen Needle) potassium chloride 20 mEq 20 meq PO DAILY #7 tabs 05/31/21 Rx tablet,extended release Patient History Medical History Acute dehydration Nausea & vomiting MARYLIN (acute kidney injury) DKA (diabetic ketoacidosis) Hyperlipidemia DM2 (diabetes mellitus, type 2) Surgical History No pertinent past surgical history Family History Mother Stroke Father , Liver cancer Cancer Social History Smoking Status: Never smoker Hx Alcohol Use: Yes Alcohol Intake Frequency: 2-4 x/Month Hx Substance Use: No Preferred Language: Slovenian Communication Ability: Effective Computer Repairer Required: No Beliefs That Will Affect Care: None marital status: Current Living Situation: Spouse current occupational status: employed 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 [employer] Other Information That Helps Us Care for You: No Feels Safe at Home: Yes Safety Concerns: Feels Safe At This Time Assistive Devices: None Review of Systems Constitutional: + fatigue and + weakness; no fever and n o chills Respiratory: + cough and + dyspnea Cardiovascular: + lightheadedness; no chest pain and no palpitations Gastrointestinal: + nausea and + vomiting; no abdominal pa in Genitourinary: no dysuria or no urinary frequency Psychiatric: + confusion Physical Exam Constitutional: + ill appearing and cooperative Eyes: PERRL, conjunctivae normal, anicteric sclerae Neck: trachea midline, no thyromegaly Cardiovascular: Rate/Rhythm: regular rhythm and + tachycardic Heart Sounds: no gallop and no murmur Gastrointestinal (Abdomen): normal bowel sounds, soft, nontender, no hepatosplenomegaly Neurologic: Motor/Sensory: no sensory deficit Results & Data Results & Data Vital Signs (Past 12 Hours) Vital Signs Temp Pulse Pulse Resp BP BP Pulse Ox 05/30/23 07:40 117 H 32 H 116/74 96 05/30/23 07:00 117 H 28 H 110/50 L 99 05/30/23 05:48 129 H 05/30/23 05:30 125 H 24 128/82 99 05/30/23 05:28 126 H 22 99 05/30/23 05:15 128 H 25 H 100 05/30/23 05:05 100 05/30/23 04:00 248 H 24 99 05/30/23 04:00 163/89 H 05/30/23 03:45 118 H 23 100 05/30/23 03:30 181 H 17 99 05/30/23 03:15 114 H 18 99 05/30/23 03:00 146/87 H 05/30/23 03:00 129 H 19 99 05/30/23 02:45 115 H 21 100 05/30/23 02:40 115 H 17 100 05/30/23 02:40 145/91 H 05/30/23 02:39 115 H 20 145/91 H 100 05/30/23 02:30 113 H 17 99 05/30/23 02:15 110 H 15 99 05/30/23 02:00 111 H 19 99 05/30/23 01:49 113 H 14 98 05/30/23 01:49 113 H 05/30/23 01:48 97 05/30/23 01:48 105 H 22 136/84 98 05/30/23 01:13 36.6 C 135 H 20 138/84 99 O2 Del Method 05/30/23 07:40 Room Air 05/30/23 07:00 Room Air 05/30/23 05:48 05/30/23 05:30 Room Air 05/30/23 05:28 05/30/23 05:15 Room Air 05/30/23 05:05 Room Air 05/30/23 04:00 05/30/23 04:00 05/30/23 03:45 05/30/23 03:30 05/30/23 03:15 05/30/23 03:00 05/30/23 03:00 05/30/23 02:45 05/30/23 02:40 05/30/23 02:40 05/30/23 02:39 Room Air 05/30/23 02:30 05/30/23 02:15 05/30/23 02:00 05/30/23 01:49 05/30/23 01:49 05/30/23 01:48 Room Air 05/30/23 01:48 Room Air 05/30/23 01:13 Room Air (3) Hyperlipidemia Hyperlipidemia type: unspecified Qualified Code(s): E78.5 - Hyperlipidemia, unspecified
--- NOTE | 2023-05-30 09:36 | Pharmacy Report ---
Pharmacy Glycemic Short Note 2 - Date of Service May 30, 2023 - Glycemic Short BSG Results (Last 24 hours): 05/30/23 05/30/23 05/30/23 01:38 04:32 06:15 Glucose 392 H* 476 H* POC Glucose 473 H* 05/30/23 05/30/23 05/30/23 07:17 08:02 08:03 Glucose POC Glucose 458 H* 541 H* 455 H* 05/30/23 08:05 Glucose POC Glucose 445 H* OUTPATIENT ANTIDIABETIC REGIMEN: * Patient reports non-compliance with regimen and has not been taking these medications * Novolog (40-50 units/day) * Metformin 500 mg PO BIDM HbA1c: 13.8% (05/30/23) ASSESSMENT: * EH is a 58 year old male who presents to ED on 05/30/23 for evaluation of COVID- 19 symptoms (productive cough, fatigue, weakness, SOB, nausea, and vomiting) * Initial labs suggestive of severe DKA (anion gap of 34, serum bicarbonate 4 mmol/L, BSG of 392 mg/dL, ABG pH less than 7) * Insulin infusion and IV fluids initiated in ED. Current IV fluids of sodium bicarb + potassium chloride in SW @250 mL/hr. * Patient with history of poorly controlled T2DM w/ reported non-compliance with insulin regimen at home. Pharmacy consulted 2 years ago for very similar presentation of DKA in context of COVID-19. * This past admission suggests glycemic control may be achieved w/ 25-30 units of basal and bolus insulin at CF of 25 and carb ratio of 8. Although, anticipating significant insulin deficiency in light of non-compliance with home regimen. May require more basal up front. PLAN FOR INPATIENT GLYCEMIC CONTROL: * Hold outpatient oral diabetes medications * Continue IV insulin infusion until anion gap closed * Basal insulin * Hold until anion gap closed and patient ready for transition to SC insulin * Bolus insulin * Per insulin gtt calculator once diet initiated
[2023-05-30] MEDS ORDERED: SODIUM BICARB 8.4% INJ 50 MEQ/50 ML SYR IV ONE (09:40)
[2023-05-30] MEDS ORDERED: SODIUM BICARB 8.4% INJ 50 MEQ/50 ML SYR IV STA (09:42)
--- NOTE | 2023-05-30 09:44 | Procedure Note ---
Procedure Note Date of Service May 30, 2023 Note Procedure: Arterial Line Placement Attending: Dr. See APC: Abad Win PA-C Indication: Hemodynamic monitoring Anesthesia: Lidocaine 1% Emergent Consent implied in the setting of clinical deterioration and need for close hemodynamic monitoring, ABG monitoring, frequent lab draws, etc. A time-out was completed verifying correct patient, procedure, site, positioning, and implant(s) or special equipment if applicable. Allens test was performed to ensure adequate perfusion. Patients LEFT wrist was prepped and draped in the usual sterile fashion. Ultrasound guidance was used to aid needle placement. A 20g Arrow arterial line was introduced into the LEFT Radial artery. Catheter was threaded, and the needle was removed with appropriate blood return. Good waveform was observed. The patient tolerated the procedure well. Conf irmation of placement with ultrasound. Blood Loss: Minimal Complications: None Procedural Ultrasound Guidance: Procedure Date: 05/30/2023 Indication: Hemodynamic Monitoring, Frequent ABGs/Lab draws. Attending: Dr. See APC: Abad Win PA-C Artery Identified: YES Line confirmed in Artery with ultrasound: YES Complications: NONE Patient tolerated procedure: WELL Coding CPT Codes Tubes, Drains, and Vasc Access - Tubes, Drains, and Vasc Access: [id number] Arterial Cath/Cannulation Sampling/Monitoring/Transfusion ([id number]) [place] Procedure Codes (Charges) Tubes, Drains, and Vasc Access Procedure 1: Tubes, Drains, and Vasc Access: [id number] Arterial Cath/Cannulation Sampling/Monitoring/Transfusion
[2023-05-30 09:56] LABS: iSTAT Art Bld Gas pCO2 Correct 9 mmHg (35-46); iSTAT Art Bld Gas pH Corrected 6.981 (7.35-7.45); iSTAT Arterial Blood Gas HCO3 2 meg/L (19-24); iSTAT Arterial Blood Gas pCO2 < 10 mmHg (35-46); iSTAT Arterial Blood Gas pH 6.98 (7.35-7.45); iSTAT Arterial Blood Gas pO2 135 mmHg (80-95); iSTAT Arterial Blood Gas pO2 C 134; iSTAT Carbon Dioxide < 5 mmol/L (24-31); iSTAT Hematocrit 45 % (42-52); iSTAT Hemoglobin 15.3 g/dl (14.0-18.0); iSTAT Site Art Line; iSTAT Sodium 142 mmol/L (135-144)
[2023-05-30] MEDS: SODIUM BICARBONATE 8.4% 150 MEQ, POTASSIUM CHLORIDE 20 MEQ in WATER, STERILE 1,000 ML IV SCH ×2 (10:04→17:08)
[2023-05-30] MEDS: ROSUVASTATIN CALCIUM 5 MG TAB PO SCH (10:58)
[2023-05-30] MEDS: ENOXAPARIN INJ 40 MG/0.4 ML SYR SQ SCH (10:58)
--- NOTE | 2023-05-30 11:35 | Electrocardiogram Report ---
Test Reason : Blood Pressure : / mmHG Vent. Rate : 116 BPM Atrial Rate : 116 BPM P-R Int : 160 ms QRS Dur : 122 ms QT Int : 380 ms P-R-T Axes : 095 -54 093 degrees QTc Int : 528 ms Sinus tachycardia Left anterior fascicular block Left ventricular hypertrophy with repolarization abnormality with QRS widening Septal infarct , age undetermined Abnormal ECG No previous ECGs available Confirmed by Dwayne Deleon ([id number]) on 05/30/2023 11:35:18 AM Referred By: REFERRED SELF Confirmed By:Dwayne Deleon
[2023-05-30 11:43] LABS: Calcium 7.8 mg/dl (8.6-10.3); Creatinine Clr Calc Pharmacy 85.8 ml/min; Est GFR (African American) 89.2 ml/min; Phosphorus 3.2 mg/dl (2.5-4.9)
--- NOTE | 2023-05-30 14:04 | Hospitalist Progress Note ---
"Date of Service May 30, 2023 Assessment & Plan (1) DKA (diabetic ketoacidosis): Plan: Romel Andersen is a 58 year-old male with a past medical history of T2DM, HLD, and prior episode of DKA who presents with symptoms of nausea, vomiting, weakness and shortness of breath DKA| DM2, Uncontrolled -Presents with 3 days ongoing cough, sob, weakness. Labs consistent with DKA. Likely secondary to medication noncompliance with concurrent COVID illness. -DKA protocol - insulin gtt, IVF w/ K. VBG with severe acidosis - started on bicarb infusion -Management per ICU -Arterial line placed -Pharmacy glycemic management per ICU protocol -Had not been taking home medications (semaglutide, metformin) recently -Hgb A1C 13.8% on admission COVID Positive -On admission tested positive for COVID, endorses several days of SOB, weakness, cough -CXR unremarkable, no acute process -O2 saturation appropriate on RA, no supplemental oxygen needed at this time HLD -Continue statin DVT ppx: lovenox FEN/GI: NPO Code Status: full Dispo: ICU (2) DM2 (diabetes mellitus, type 2): (3) Hyperlipidemia: (4) COVID: Admission and Anticipated Discharge Date Admission Date: May 30, 2023 Supervising Physician Co-Signing Physician Notes I personally examined the patient and verified all tyler points of history and exam, discussed case, and agree with decision making with Dr Tse feeling better. Would like something to drink. Passed along to the ICU team. Vitals noted, in general he is awake and alert pleasant no distress but does appear quite fatigued. Breathing unlabored no accessory muscle use good effort. Skin shows no rashes no pallor or icterus. Neuro without focal deficits. COVID and subsequent DKAIV fluids, IV insulin, supportive care. Appreciate ICU management. Otherwise as above Subjective Patient seen and examined at bedside. Patient had just been transferred to ICU and is being prepped for arterial line placement. Patient appears somnolent but answers questions. Currently on room air, oxygen saturation appropriate and hemodynamically stable. Review of Systems Review of Systems: As per above Physical Exam Constitutional: + acute distress and + frail appearing Eyes: + anicteric sclerae; no conjunctival abn ormality ENMT: Ears: no external ear abnormality Nose: no external nose abnormality Moist mucous membranes Respiratory: + uses accessory muscles and + tachypnei c Musculoskeletal: Moves all limbs independently Skin: no rashes, warm and dry Psychiatric: Appeared somnolent, alert/oriented Results & Data Results & Data Vital Signs (Past 12 Hours) Vital Signs Temp Pulse Pulse Resp BP BP Pulse Ox 05/30/23 10:18 113 H 25 H 121/80 100 05/30/23 09:18 118 H 24 127/83 100 05/30/23 08:52 05/30/23 08:18 115 H 28 H 114/77 99 05/30/23 08:16 36.4 C L 130 H 26 H 114/77 100 05/30/23 07:45 118 H 24 116/80 100 05/30/23 07:40 117 H 32 H 116/74 96 05/30/23 07:30 117 H 26 H 116/74 99 05/30/23 07:02 23 110/86 87 L 05/30/23 07:00 117 H 28 H 110/50 L 99 05/30/23 05:48 129 H 05/30/23 05:30 125 H 24 128/82 99 05/30/23 05:28 126 H 22 99 05/30/23 05:15 128 H 25 H 100 05/30/23 05:05 100 05/30/23 04:00 248 H 24 99 05/30/23 04:00 163/89 H 05/30/23 03:45 118 H 23 100 05/30/23 03:30 181 H 17 99 05/30/23 03:15 114 H 18 99 05/30/23 03:00 146/87 H 05/30/23 03:00 129 H 19 99 05/30/23 02:45 115 H 21 100 05/30/23 02:40 115 H 17 100 05/30/23 02:40 145/91 H 05/30/23 02:39 115 H 20 145/91 H 100 05/30/23 02:30 113 H 17 99 05/30/23 02:15 110 H 15 99 O2 Del Method 05/30/23 10:18 05/30/23 09:18 05/30/23 08:52 Room Air 05/30/23 08:18 05/30/23 08:16 Room Air 05/30/23 07:45 05/30/23 07:40 Room Air 05/30/23 07:30 05/30/23 07:02 05/30/23 07:00 Room Air 05/30/23 05:48 05/30/23 05:30 Room Air 05/30/23 05:28 05/30/23 05:15 Room Air 05/30/23 05:05 Room Air 05/30/23 04:00 05/30/23 04:00 05/30/23 03:45 05/30/23 03:30 05/30/23 03:15 05/30/23 03:00 05/30/23 03:00 05/30/23 02:45 05/30/23 02:40 05/30/23 02:40 05/30/23 02:39 Room Air 05/30/23 02:30 05/30/23 02:15 Resident Activity Tracking Resident Involvement: Resident Care Provided Care Provided: Adult Hospital Medicine (3) Hyperlipidemia Hyperlipidemia type: unspecified Qualified Code(s): E78.5 - Hyperlipidemia, unspecified"
[2023-05-30] MEDS: D5W AND 1/2NSS + 20MEQ KCL 20 MEQ/1,000 ML BAG IV SCH ×3 (14:54→23:27)
[2023-05-30 16:10] LABS: Anion Gap 19 (3-11); BUN Creatinine Ratio 19.1 (10-20); Blood Urea Nitrogen 18 mg/dl (6-23); Calcium 8.3 mg/dl (8.6-10.3); Carbon Dioxide 11 mmol/L (21-32); Chloride 113 mmol/L (98-107); Creatinine Clr Calc Pharmacy 96.8 ml/min; Est GFR (African American) 103.2 ml/min; Glucose 248 mg/dl (70-99(Fasting)); Magnesium 1.8 mg/dl (1.7-2.4); Phosphorus < 1.0 mg/dl (2.5-4.9); Potassium 3.6 mmol/L (3.5-5.1); Sodium 143 mmol/L (136-145)
[2023-05-30] MEDS ORDERED: SODIUM PHOSPHATE 3 MMOL/1 ML 5 ML VIAL IV STA (16:20)
[2023-05-30] MEDS ORDERED: SODIUM PHOSPHATE 21 MMOL in SODIUM CHLORIDE 0.9% 500 ML IV ONE (16:30)
[2023-05-30] MEDS: ONDANSETRON INJ 2 MG/ML 2 ML VIAL IV PRN ×2 (17:42→23:31)
[2023-05-30 18:14] LABS: Anion Gap 16 (3-11); BUN Creatinine Ratio 18.1 (10-20); Blood Urea Nitrogen 17 mg/dl (6-23); Calcium 8.5 mg/dl (8.6-10.3); Carbon Dioxide 14 mmol/L (21-32); Chloride 113 mmol/L (98-107); Creatinine Clr Calc Pharmacy 96.8 ml/min; Est GFR (African American) 103.2 ml/min; Glucose 269 mg/dl (70-99(Fasting)); Potassium 3.6 mmol/L (3.5-5.1); Sodium 143 mmol/L (136-145)
[2023-05-30 18:18] LABS: Magnesium 1.8 mg/dl (1.7-2.4); Phosphorus < 1.0 mg/dl (2.5-4.9)
[2023-05-30] MEDS ORDERED: SODIUM PHOSPHATE IV ONE (18:20)
[2023-05-30] MEDS ORDERED: SODIUM CHLORIDE 0.9% IV ONE (18:20)
--- NOTE | 2023-05-30 19:53 | Billing Data ---
Date of Service May 30, 2023 Coding Level of Care Code 61372 SUB INP/OBS CARE
--- NOTE | 2023-05-30 22:45 | Billing Data ---
Date of Service May 30, 2023 Coding Level of Care Code 69288 CRITICAL CARE
[2023-05-30 23:04] LABS: Anion Gap 10 (3-11); BUN Creatinine Ratio 20.2 (10-20); Blood Urea Nitrogen 17 mg/dl (6-23); Calcium 8.6 mg/dl (8.6-10.3); Carbon Dioxide 18 mmol/L (21-32); Chloride 115 mmol/L (98-107); Creatinine Clr Calc Pharmacy 108.3 ml/min; Est GFR (African American) 111.9 ml/min; Est GFR (Non-African American) 96.5 ml/min; Glucose 237 mg/dl (70-99(Fasting)); Magnesium 1.8 mg/dl (1.7-2.4); Phosphorus < 1.0 mg/dl (2.5-4.9); Potassium 3.4 mmol/L (3.5-5.1); Sodium 143 mmol/L (136-145)
[2023-05-30] MEDS ORDERED: POTASSIUM CHLORIDE 20 MEQ/15 ML UDC PO STA (23:09)
[2023-05-30] MEDS ORDERED: POTASSIUM PHOS 3 MMOL/1 ML INFUSION IV STA (23:09)
[2023-05-30] MEDS ORDERED: POTASSIUM PHOSPHATE 18 MMOL in SODIUM CHLORIDE 0.9% 500 ML IV ONE (23:30)
[2023-05-31] MEDS: INSULIN ASPART PER UNIT CHARGE SC SCH ×6 (01:11→23:58)
[2023-05-31 02:50] LABS: Calcium 8.6 mg/dl (8.6-10.3); Creatinine Clr Calc Pharmacy 108.3 ml/min; Est GFR (African American) 111.9 ml/min; Est GFR (Non-African American) 96.5 ml/min; Magnesium 1.7 mg/dl (1.7-2.4); Phosphorus 1.4 mg/dl (2.5-4.9); Potassium 3.7 mmol/L (3.5-5.1)
[2023-05-31] MEDS: MAGNESIUM SULFATE / D5W 1 GM/100 ML BAG IV SCH ×3 (05:18→09:35)
[2023-05-31] MEDS: D5W AND 1/2NSS + 20MEQ KCL 20 MEQ/1,000 ML BAG IV SCH ×2 (05:19→12:30)
--- NOTE | 2023-05-31 05:50 | Billing Data ---
Date of Service May 30, 2023 Coding Level of Care Code 03309 CRITICAL CARE
[2023-05-31 06:16] LABS: BUN Creatinine Ratio 20.5 (10-20); Calcium 8.5 mg/dl (8.6-10.3); Creatinine Clr Calc Pharmacy 116.7 ml/min; Est GFR (African American) 115.3 ml/min; Est GFR (Non-African American) 99.5 ml/min; Potassium 3.5 mmol/L (3.5-5.1)
[2023-05-31 06:24] LABS: Magnesium 1.7 mg/dl (1.7-2.4); Phosphorus 1.5 mg/dl (2.5-4.9)
--- NOTE | 2023-05-31 06:45 | Hospitalist Progress Note ---
"Date of Service May 31, 2023 Assessment & Plan (1) DKA (diabetic ketoacidosis): Plan: Romel Andersen is a 58 year-old male with a past medical history of T2DM, HLD, and prior episode of DKA who presents with symptoms of nausea, vomiting, weakness and shortness of breath DKA| DM2, Uncontrolled -Presents with 3 days ongoing cough, sob, weakness. Labs consistent with DKA. Likely secondary to medication noncompliance with concurrent COVID illness. -DKA protocol - insulin gtt, IVF w/ K. - Labs improved today, bicarb=18, AG-11 - Will likely be able transfer to [facility] insulin today - Will check C-Peptide given DKA presentation in Type 2 Diabetic -Pharmacy glycemic management -Had not been taking home medications (semaglutide, metformin) recently -Hgb A1C 13.8% on admission COVID Positive -On admission tested positive for COVID, endorses several days of SOB, weakness, cough -CXR unremarkable, no acute process -O2 saturation appropriate on RA, no supplemental oxygen needed at this time HLD -Continue statin DVT ppx: lovenox FEN/GI: NPO Code Status: full Dispo: downgrade from ICU to PCU (2) DM2 (diabetes mellitus, type 2): (3) Hyperlipidemia: (4) COVID: Admission and Anticipated Discharge Date Admission Date: May 30, 2023 Supervising Physician Co-Signing Physician Notes I personally examined the patient and verified all tyler points of history and exam, discussed case, and agree with decision making with Dr Sahu Still feeling fairly nauseated. Fairly acutemostly just when he is gotten sick, although he notes for the last maybe 3 months or so has had a poor appetite due to stress. That said no chronic nausea or vomiting. Notes that he has been a diabetic for maybe 5 years or so, has had difficulty with control. Does relate times where lifestyle seems to have made a major impact, but it is unclear if he is ever been under good control without insulin or not. Vitals noted, in general he is awake and alert pleasant no distress. HEENT normocephalic atraumatic mucous membranes moist. Breathing unlabored no accessory muscle use good effort. Skin shows no rashes no pallor or icterus. No epigastric tenderness. COVID and subsequent DKA Improving nicely. little bit hard to tell if he is truly a type II or possibly latent autoimmune diabetes of adulthood or even a late onset type I, given how profoundly acidotic he was. It is possible that he had HHS physiology with a worsening acidosis due to septic physiology from COVID, but also it is a little bit surprising with a claudia who seems to have pretty reasonable lifestyle control to be this uncontrolled if he is purely insulin resistance, check a C-peptidecontinue to follow closely. Close outpatient follow-up. Otherwise as above. Subjective Doing well. Family at bedside this morning. Some nausea, improved with zofran. Review of Systems Review of Systems: As per above Physical Exam Physical Exam: Constitutional: well-appearing, no acute distress HEENT: NCAT, no conjunctival injection CV: regular rhythm, no murmur appreciated, extremities well-perfused, no LE edema Resp: CTABL, no wheezes/rales/rhonchi appreciated, no increased work of breathing GI: soft, nondistended, nontender, BS normoactive MSK: no gross deformities appreciated Skin: warm, dry, no rash appreciated Neuro: alert, oriented, no focal neurologic deficit appreciated Results & Data Results & Data Vital Signs (Past 12 Hours) Vital Signs Pulse Resp BP Pulse Ox O2 Del Method 05/31/23 05:30 77 16 98 Room Air 05/31/23 05:18 79 14 97 05/31/23 05:18 114/67 05/31/23 05:00 82 16 97 Room Air 05/31/23 04:30 69 21 98 05/31/23 04:18 126/71 05/31/23 04:18 72 18 98 Room Air 05/31/23 04:00 71 16 97 05/31/23 03:48 74 126/60 05/31/23 03:30 74 14 98 05/31/23 03:18 71 19 97 Room Air 05/31/23 03:18 106/67 05/31/23 03:00 72 17 97 Room Air 05/31/23 02:30 82 18 97 05/31/23 02:18 126/74 05/31/23 02:18 77 17 97 Room Air 05/31/23 02:00 74 98 05/31/23 01:30 81 14 99 05/31/23 01:18 76 14 98 Room Air 05/31/23 01:18 114/68 05/31/23 01:00 86 98 05/31/23 00:30 87 14 99 Room Air 05/31/23 00:18 81 98 05/31/23 00:18 111/64 05/31/23 00:00 91 H 14 97 Room Air 05/31/23 00:00 82 113/63 05/31/23 00:00 84 05/30/23 23:30 82 98 05/30/23 23:18 116/70 05/30/23 23:18 71 14 97 Room Air 05/30/23 23:00 89 14 97 Room Air 05/30/23 22:30 74 16 97 05/30/23 22:18 76 14 97 05/30/23 22:18 126/76 05/30/23 22:00 86 14 97 05/30/23 21:30 89 14 97 Room Air 05/30/23 21:18 92 H 14 98 05/30/23 21:18 122/76 05/30/23 21:00 90 14 97 05/30/23 20:30 87 96 Room Air 05/30/23 20:18 91 H 18 97 05/30/23 20:18 126/71 05/30/23 20:00 93 H 14 98 05/30/23 20:00 83 115/58 L 05/30/23 19:30 90 97 Room Air 05/30/23 19:18 86 12 116/68 97 Resident Activity Tracking Resident Involvement: Resident Care Provided Care Provided: Adult Hospital Medicine (3) Hyperlipidemia Hyperlipidemia type: unspecified Qualified Code(s): E78.5 - Hyperlipidemia, unspecified"
--- NOTE | 2023-05-31 07:05 | Critical Care Progress Note ---
Date of Service May 31, 2023 Assessment & Plan (1) DKA (diabetic ketoacidosis): (2) DM2 (diabetes mellitus, type 2): (3) COVID: (4) Hyperlipidemia: Plan Assessment & Plan (1) DKA (diabetic ketoacidosis): (2) DM2 (diabetes mellitus, type 2): (3) Hyperlipidemia: (4) COVID: Plan Patient is a 58 yo M with PMHx of T2DM, HLD, HTN presents with cough, shortness of breath, nausea, vomiting. 1) DKA/ T2DM/ -presents with 3 days ongoing cough, sob, weakness. Labs consistent with DKA. Likely secondary to medication noncompliance with superimposed covid. - DKA protocol - insulin gtt, IVF w/ K Initial Labs - VBG with severe acidosis: pH < 7.00, pCO2 18, pO2, 64 - started on bicarb gtt - ABG: pH < 7.00, pCO2 9, pO2, 143 - repeat ABG (3 hrs later): pH = 6.98, pCO2 9, pO2, 134 -monitor labs, repeat as necessary K, 4.0 AG, 34 Glu, 504 - AM (05/31/23) labs: K, 3.7 AG, 11 Glu, 225 P, 1.7 HCO3, 18 - pt started transition to basal/bolus insulin w/ 2-4 hr insulin drip overlap around noon - continue Q1hr BSGs until insulin drip is stopped, then make Q4hrs - pt not prescribed metformin for over a year - pt trialed semaglutide but apparently discontinued it after starting dose because it "had no effect on blood sugar levels"; patient unaware that dose escalation is part of treatment -pharmacy glycemic management 2) COVID -on admission +covid. O2 saturation doing well on RA. - CXR unremarkable - Supportive care. 3)HLD -cont. statin DVT ppx: lovenox FEN/GI: NPO Code Status: full Dispo: ICU Admission and Anticipated Discharge Date Admission Date: May 30, 2023 Supervising Physician Co-Signing Physician Notes Dr. Valdez was resident physician during care of patient. I separately dulce maria luated patient for tyler portions of the history and the exam. I was present during the critical portion of medical decision making, and I discussed the case with the resident. I generally agree with the findings and plan. Anion gap closed, still on insulin infusion at this time. Okay to proceed to diet advance diet as tolerated. Stable for downgrade out of ICU Subjective Patient is a 58 yo male with PMHx of T2DM, HLD, and HTN who presented with3 day- history of a productive cough, associated fatigue, weakness, shortness of breath, nausea, and some vomiting. Denied fevers, chills, chest pain, abdominal pain, diarrhea, dysuria, increased urinary frequency. He tested positive for COVID with a home test prior to ED arrival. He has been noncompliant with his insulin at home and other diabetes meds at home. He was hospitalized about 2 years ago for DKA as well with COVID. Review of Systems Constitutional: + fatigue and + weakness; no fever and n o chills Respiratory: + cough and + dyspnea Cardiovascular: + lightheadedness; no chest pain and no palpitations Gastrointestinal: + nausea and + vomiting; no abdominal pa in Genitourinary: no dysuria or no urinary frequency Neurologic: no loss of sensation, no tingling and no numbness Psychiatric: no confusion Physical Exam Constitutional: cooperative and comfortable Eyes: PERRL, conjunctivae normal, anicteric sclerae Cardiovascular: Rate/Rhythm: regular rate and regular rhythm Heart Sounds: no gallop and no murmur Gastrointestinal (Abdomen): normal bowel sounds, soft, nontender, no hepatosplenomegaly Neurologic: Motor/Sensory: no sensory deficit no loss of propioception in feet/toes b/l Psychiatric: A+Ox3, euthymic affect Results & Data Results & Data Vital Signs (Past 12 Hours) Vital Signs Pulse Resp BP Pulse Ox O2 Del Method 05/31/23 06:45 83 0 L 97 05/31/23 06:30 85 0 L 97 05/31/23 06:18 81 0 L 98 05/31/23 06:18 127/79 05/31/23 06:15 85 0 L 98 05/31/23 06:00 91 H 14 97 Room Air 05/31/23 05:45 94 H 12 97 Room Air 05/31/23 05:30 77 16 98 Room Air 05/31/23 05:18 79 14 97 05/31/23 05:18 114/67 05/31/23 05:00 82 16 97 Room Air 01/06/24 04:30 69 21 98 05/31/23 04:18 126/71 05/31/23 04:18 72 18 98 Room Air 05/31/23 04:00 71 16 97 05/31/23 03:48 74 126/60 05/31/23 03:30 74 14 98 05/31/23 03:18 71 19 97 Room Air 05/31/23 03:18 106/67 05/31/23 03:00 72 17 97 Room Air 05/31/23 02:30 82 18 97 05/31/23 02:18 126/74 05/31/23 02:18 77 17 97 Room Air 05/31/23 02:00 74 98 05/31/23 01:30 81 14 99 05/31/23 01:18 76 14 98 Room Air 05/31/23 01:18 114/68 05/31/23 01:00 86 98 05/31/23 00:30 87 14 99 Room Air 05/31/23 00:18 81 98 05/31/23 00:18 111/64 05/31/23 00:00 91 H 14 97 Room Air 05/31/23 00:00 82 113/63 05/31/23 00:00 84 05/30/23 23:30 82 98 05/30/23 23:18 116/70 05/30/23 23:18 71 14 97 Room Air 05/30/23 23:00 89 14 97 Room Air 05/30/23 22:30 74 16 97 05/30/23 22:18 76 14 97 05/30/23 22:18 126/76 05/30/23 22:00 86 14 97 05/30/23 21:30 89 14 97 Room Air 05/30/23 21:18 92 H 14 98 05/30/23 21:18 122/76 05/30/23 21:00 90 14 97 05/30/23 20:30 87 96 Room Air 05/30/23 20:18 91 H 18 97 05/30/23 20:18 126/71 05/30/23 20:00 93 H 14 98 05/30/23 20:00 83 115/58 L 05/30/23 19:30 90 97 Room Air 05/30/23 19:18 86 12 116/68 97 Resident Activity Tracking Resident Involvement: Resident Care Provided Care Provided: Adult Hospital Medicine (4) Hyperlipidemia Hyperlipidemia type: unspecified Qualified Code(s): E78.5 - Hyperlipidemia, unspecified
[2023-05-31] MEDS ORDERED: POTASSIUM PHOS 3 MMOL/1 ML INFUSION IV STA (07:08)
[2023-05-31] MEDS ORDERED: POTASSIUM PHOSPHATE 21 MMOL in SODIUM CHLORIDE 0.9% 500 ML IV ONE (07:30)
[2023-05-31 07:59] LABS: Hematocrit (blood only) 37.5 % (42.0-52.0); Hemoglobin 13.1 g/dl (14.0-18.0); Mean Corpuscular Hemoglobin 33.2 pg (25.0-34.0); Mean Corpuscular Hgb Conc 34.9 g/dL (32.0-36.0); Mean Corpuscular Volume 95.2 fL (80.0-100.0); Mean Platelet Volume 10.3 fL (9.4-12.4); Platelet Count 105 K/uL (130-400); RDW Coefficient of Variation 12.2 % (11.5-14.5); RDW Standard Deviation 42.5 fL (36.4-46.3); Red Blood Count 3.94 M/uL (4.70-6.10); White Blood Count 9.29 K/ul (4.8-10.8)
[2023-05-31] MEDS: ONDANSETRON INJ 2 MG/ML 2 ML VIAL IV PRN ×2 (08:00→12:31)
[2023-05-31] MEDS ORDERED: Nursing to Pharmacy Communication SCH (08:30)
[2023-05-31] MEDS: ROSUVASTATIN CALCIUM 5 MG TAB PO SCH (09:35)
[2023-05-31] MEDS: ENOXAPARIN INJ 40 MG/0.4 ML SYR SQ SCH (09:36)
[2023-05-31 10:04] LABS: BUN Creatinine Ratio 20.8 (10-20); Calcium 8.7 mg/dl (8.6-10.3); Creatinine Clr Calc Pharmacy 118.2 ml/min; Est GFR (African American) 115.9 ml/min; Magnesium 2.2 mg/dl (1.7-2.4); Phosphorus 1.7 mg/dl (2.5-4.9); Potassium 3.7 mmol/L (3.5-5.1)
--- NOTE | 2023-05-31 12:11 | Billing Data ---
Date of Service May 31, 2023 Coding Level of Care Code 12425 SUB INP/OBS CARE
[2023-05-31] MEDS ORDERED: LANTUS PER UNIT CHARGE SC SCH (13:00)
[2023-05-31] MEDS ORDERED: SODIUM CHLOR 0.45% + 20MEQ KCL 20 MEQ/1,000 ML BAG IV SCH (13:15)
[2023-05-31] MEDS: SODIUM CHLOR 0.45% + 20MEQ KCL 20 MEQ/1,000 ML BAG IV SCH ×2 (13:45→20:25)
[2023-05-31] MEDS ORDERED: LORazepam 1 MG/1 ML SYR ED Inj Use IV STA (14:10)
[2023-05-31] MEDS ORDERED: LORazepam 1 MG in SYRINGE 0.5 ML IV STA (14:39)
[2023-05-31] MEDS ORDERED: METOCLOPRAMIDE HCL INJ 5 MG/ML 2 ML VIAL IV PRN (16:00)
--- NOTE | 2023-05-31 16:34 | Billing Data ---
Date of Service May 31, 2023 Coding Level of Care Code 01485 SUB INP/OBS CARE
[2023-05-31] MEDS: FAMOTIDINE 20 MG TAB PO SCH (20:25)
[2023-05-31] MEDS: SUCRALFATE 1 GM/10 ML UDC PO SCH (20:26)
[2023-05-31] MEDS: PANTOprazole 40 MG TAB PO SCH (20:26)
[2023-05-31] MEDS: INSULIN REGULAR 250 UNITS in SODIUM CHLORIDE 0.9% 247.5 ML IV SCH (21:43)
[2023-06-01] MEDS: INSULIN ASPART PER UNIT CHARGE SC SCH ×6 (04:02→23:36)
[2023-06-01] MEDS: SODIUM CHLOR 0.45% + 20MEQ KCL 20 MEQ/1,000 ML BAG IV SCH ×4 (04:02→23:34)
[2023-06-01 05:02] LABS: Hematocrit (blood only) 37.5 % (42.0-52.0); Hemoglobin 13.5 g/dl (14.0-18.0); Mean Corpuscular Hemoglobin 33.8 pg (25.0-34.0); Mean Corpuscular Volume 93.8 fL (80.0-100.0); Mean Platelet Volume 10.3 fL (9.4-12.4); Platelet Count 111 K/uL (130-400); RDW Coefficient of Variation 12.3 % (11.5-14.5); White Blood Count 7.81 K/ul (4.8-10.8)
[2023-06-01 05:23] LABS: Albumin Globulin Ratio 1.3 (0.9-2); Albumin Level 3.3 gm/dl (3.4-5.0); BUN Creatinine Ratio 18.6 (10-20); Bilirubin,Total 0.5 mg/dl (0.2-1.0); Calcium 8.8 mg/dl (8.6-10.3); Est GFR (African American) 120.6 ml/min; Globulin 2.5 gm/dl (2.5-4.0); Phosphorus 2.2 mg/dl (2.5-4.9); Potassium 3.6 mmol/L (3.5-5.1); Total Protein 5.8 gm/dl (6.0-8.3)
--- NOTE | 2023-06-01 06:42 | Hospitalist Progress Note ---
Date of Service June 01, 2023 Assessment & Plan (1) DKA (diabetic ketoacidosis): Plan: Romel Andersen is a 58 year-old male with a past medical history of T2DM, HLD, and prior episode of DKA who presents with symptoms of nausea, vomiting, weakness and shortness of breath DKA| DM2, Uncontrolled -Presents with 3 days ongoing cough, sob, weakness. Labs consistent with DKA. Likely secondary to medication noncompliance with concurrent COVID illness. -DKA resolved - Labs remain stable - Transferred off Insulin drip to [facility]; basal/bolus - Will check C-Peptide given DKA presentation in Type 2 Diabetic; still pending -Pharmacy glycemic management -Had not been taking home medications (semaglutide, metformin) recently -Hgb A1C 13.8% on admission - Per chart review did appear to have good glycemic control in the middle of 2021 with largely dietary control, hemoglobin a1c 6-7 COVID Positive -On admission tested positive for COVID, endorses several days of SOB, weakness, cough -CXR unremarkable, no acute process -O2 saturation appropriate on RA, no supplemental oxygen needed at this time HLD -Continue statin DVT ppx: Lovenox FEN/GI: NPO Code Status: full Dispo: likely d/c 06/02 if able to tolerate diet (2) DM2 (diabetes mellitus, type 2): (3) Hyperlipidemia: (4) COVID: Admission and Anticipated Discharge Date Admission Date: May 30, 2023 Supervising Physician Co-Signing Physician Notes I personally examined the patient and verified all tyler points of history and exam, discussed case, and agree with decision making with Dr Sahu Does not still feel nauseated, but at the same time has barely eaten. In d iscussion of home versus ongoing in the hospital carewe discussed the need to be sure he can eat and drink okay to hold his own. After discussion, he was not sure he was there yet and felt like it would be better to stand tomorrow. Vitals noted, in general he is awake and alert pleasant no distress. HEENT normocephalic atraumatic mucous membranes moist. Breathing unlabored no accessory muscle use good effort. Skin shows no rashes no pallor or icterus. Neuro without focal deficits. COVID and subsequent DKA Essentially resolved. little bit hard to tell if he is truly a type II or possibly latent autoimmune diabetes of adulthood or even a late onset type I (which appears to be the least likely given outpatient review of records that show his A1c to be 6.3 in the early/middle of 2021 at a time where he appeared to have just been lifestyle controlled or may be only on metformin), given how profoundly acidotic he was. It is possible that he had HHS physiology with a worsening acidosis due to septic physiology from COVID, but also it is a little bit surprising with a claudia who seems to have pretty reasonable lifestyle control to be this uncontrolled if he is purely insulin resistance, awaiting C-peptidecontinue to follow closely. discussed with patient that while the type of diabetes is a "work in progress" diagnostically, we are really obligated to have him on basal bolus insulin; if he turns out to have a low C-peptide/insulin deficient, then his hopes of being off of insulin would really only be met with disaster; at the same time if he proves himself to truly be a type II, then lifestyle would be the main measure of treatment, and medications would be able to be more flexible to meet his values. Close outpatient follow-up. Otherwise as above. Subjective Still hasn't eaten much, had some fluids this morning. Overall nausea has improved, no further episodes of emesis. Discussed concerns with insulin at home in the past, blood glucose in the 70s, edema after last hopsilization. Review of Systems Review of Systems: As per above Physical Exam Physical Exam: Constitutional: well-appearing, no acute distress HEENT: NCAT, no conjunctival injection CV: regular rhythm, no murmur appreciated, extremities well-perfused, no LE edema Resp: CTABL, no wheezes/rales/rhonchi appreciated, no increased work of b reathing GI: soft, nondistended, nontender, BS normoactive MSK: no gross deformities appreciated Skin: warm, dry, no rash appreciated Neuro: alert, oriented, no focal neurologic deficit appreciated Results & Data Results & Data Vital Signs (Past 12 Hours) Vital Signs Temp Pulse Resp BP Pulse Ox O2 Del Method O2 Del Method 06/01/23 04:15 36.5 C 06/01/23 04:06 73 6 L 96 06/01/23 04:06 154/100 H 06/01/23 04:00 66 5 L 96 06/01/23 03:00 69 9 L 97 06/01/23 02:00 68 0 L 96 06/01/23 01:00 73 19 95 06/01/23 00:46 71 06/01/23 00:00 73 18 97 05/31/23 23:56 36.7 C 05/31/23 23:55 68 96 05/31/23 23:54 148/93 H 05/31/23 23:53 66 16 05/31/23 23:00 73 1 L 05/31/23 22:00 80 0 L 05/31/23 22:00 Room Air 05/31/23 21:00 68 11 L 96 05/31/23 20:22 37.1 C 05/31/23 20:18 83 19 127/76 95 05/31/23 20:17 Room Air 05/31/23 19:18 82 9 L 121/75 93 Resident Activity Tracking Resident Involvement: Resident Care Provided Care Provided: Adult Hospital Medicine (3) Hyperlipidemia Hyperlipidemia type: unspecified Qualified Code(s): E78.5 - Hyperlipidemia, unspecified
[2023-06-01] MEDS: FAMOTIDINE 20 MG TAB PO SCH ×2 (08:50→19:59)
[2023-06-01] MEDS: PANTOprazole 40 MG TAB PO SCH ×2 (08:50→19:58)
[2023-06-01] MEDS: ROSUVASTATIN CALCIUM 5 MG TAB PO SCH (08:50)
[2023-06-01] MEDS: ENOXAPARIN INJ 40 MG/0.4 ML SYR SQ SCH (08:50)
[2023-06-01] MEDS: SUCRALFATE 1 GM/10 ML UDC PO SCH ×4 (08:51→19:58)
[2023-06-01] MEDS ORDERED: LANTUS PER UNIT CHARGE SC SCH (09:00)
--- NOTE | 2023-06-01 14:23 | Pharmacy Report ---
Pharmacy Glycemic Short Note 2 - Date of Service June 01, 2023 - Glycemic Short BSG Results (Last 24 hours): 05/31/23 05/31/23 05/31/23 15:04 16:01 17:29 Glucose POC Glucose 215 H 220 H 152 H 05/31/23 05/31/23 05/31/23 19:20 20:30 23:50 Glucose POC Glucose 121 H 148 H 220 H 05/31/23 06/01/23 06/01/23 23:52 03:54 04:30 Glucose 240 H POC Glucose 196 H 212 H 06/01/23 06/01/23 07:40 11:07 Glucose POC Glucose 197 H 167 H OUTPATIENT ANTIDIABETIC REGIMEN: * Patient reports non-compliance with regimen and has not been taking these medications * Novolog (40-50 units/day) * Metformin 500 mg PO BIDM HbA1c: 13.8% (05/30/23) ASSESSMENT: 06/01: * Patient received 40 units of basal dose in the afternoon yesterday which helped to transition him off the insulin drip. * Novolog started yesterday based on wt/stress of 2. * Fasting BSG today was 197 mg/dl. Lower dose of basal 25 units given in AM. * Patient was not eating well due to nausea/vomiting. Novolog correction factor tightened to 15 at breakfast. Pre-lunch BSG trended down to 167 mg/dl. 05/30/23 * EH is a 58 year old male who presents to ED on 05/30/23 for evaluation of COVID- 19 symptoms (productive cough, fatigue, weakness, SOB, nausea, and vomiting) * Initial labs suggestive of severe DKA (anion gap of 34, serum bicarbonate 4 mmol/L, BSG of 392 mg/dL, ABG pH less than 7) * Insulin infusion and IV fluids initiated in ED. Current IV fluids of sodium bicarb + potassium chloride in SW @250 mL/hr. * Patient with history of poorly controlled T2DM w/ reported non-compliance with insulin regimen at home. Pharmacy consulted 2 years ago for very similar presentation of DKA in context of COVID-19. * This past admission suggests glycemic control may be achieved w/ 25-30 uni ts of basal and bolus insulin at CF of 25 and carb ratio of 8. Although, anticipating significant insulin deficiency in light of non-compliance with home regimen. May require more basal up front. PLAN FOR INPATIENT GLYCEMIC CONTROL: * Hold outpatient oral diabetes medications * Basal insulin * Lantus 25 units SC QAM * Bolus insulin * NovoLog per scale ACHS or Q6hrs while NPO * Goal Range: Low 110 mg/dL - High 140 mg/dL * Correction Factor: 15 mg/dL/unit * Nutritional / Prandial insulin per carb ratio of 1 unit per 8 grams CHO consumed
--- NOTE | 2023-06-01 19:39 | Billing Data ---
Date of Service June 01, 2023 Coding Level of Care Code 26914 SUB INP/OBS CARE MIN
[2023-06-02] MEDS: INSULIN ASPART PER UNIT CHARGE SC SCH ×3 (04:02→11:57)
[2023-06-02 05:50] LABS: BUN Creatinine Ratio 18.2 (10-20); Calcium 8.1 mg/dl (8.6-10.3); Creatinine Clr Calc Pharmacy 165.4 ml/min; Est GFR (African American) 133.1 ml/min; Est GFR (Non-African American) 114.9 ml/min; Magnesium 1.7 mg/dl (1.7-2.4); Phosphorus 2.1 mg/dl (2.5-4.9); Potassium 3.3 mmol/L (3.5-5.1)
[2023-06-02 06:04] LABS: Hematocrit (blood only) 35.3 % (42.0-52.0); Hemoglobin 12.4 g/dl (14.0-18.0); Mean Corpuscular Hemoglobin 33.1 pg (25.0-34.0); Mean Corpuscular Hgb Conc 35.1 g/dL (32.0-36.0); Mean Corpuscular Volume 94.1 fL (80.0-100.0); Mean Platelet Volume 9.8 fL (9.4-12.4); Platelet Count 98 K/uL (130-400); Platelet Estimate Decreased (Normal); RDW Coefficient of Variation 11.9 % (11.5-14.5); RDW Standard Deviation 41.6 fL (36.4-46.3); Red Blood Count 3.75 M/uL (4.70-6.10); White Blood Count 5.59 K/ul (4.8-10.8)
[2023-06-02] MEDS: SODIUM CHLOR 0.45% + 20MEQ KCL 20 MEQ/1,000 ML BAG IV SCH (06:38)
[2023-06-02] MEDS ORDERED: POTASSIUM PHOS 3 MMOL/1 ML INFUSION IV STA (06:54)
[2023-06-02] MEDS ORDERED: POTASSIUM PHOSPHATE 15 MMOL in SODIUM CHLORIDE 0.9% 250 ML IV ONE (07:00)
[2023-06-02] MEDS: ENOXAPARIN INJ 40 MG/0.4 ML SYR SQ SCH (08:02)
[2023-06-02] MEDS: FAMOTIDINE 20 MG TAB PO SCH (08:02)
[2023-06-02] MEDS: ROSUVASTATIN CALCIUM 5 MG TAB PO SCH (08:02)
[2023-06-02] MEDS: SUCRALFATE 1 GM/10 ML UDC PO SCH ×2 (08:02→12:00)
[2023-06-02] MEDS ORDERED: LANTUS PER UNIT CHARGE SC SCH (09:00)
[2023-06-02] MEDS: PANTOprazole 40 MG TAB PO SCH (09:52)
--- NOTE | 2023-06-02 11:49 | Pharmacy Report ---
Pharmacy Glycemic Short Note 2 - Date of Service June 02, 2023 - Glycemic Short BSG Results (Last 24 hours): 06/01/23 06/01/23 06/01/23 16:15 19:55 23:31 Glucose POC Glucose 209 H 154 H 157 H 06/02/23 06/02/23 06/02/23 03:59 05:05 07:27 Glucose 179 H POC Glucose 171 H 178 H 06/02/23 11:28 Glucose POC Glucose 140 H OUTPATIENT ANTIDIABETIC REGIMEN: * Patient reports non-compliance with regimen and has not been taking these medications * Novolog (40-50 units/day) * Metformin 500 mg PO BIDM HbA1c: 13.8% (05/30/23) ASSESSMENT: 06/02: * BSGs within goal the last 24h: [phone]/dL. Received 25 units of basal and 18 units of bolus insulin yesterday. * Tolerating diet, other stressors stable. * Increase Lantus to 30 units today given fasting BSG 178mg/dl. No change to Novolog parameters. 06/01: * Patient received 40 units of basal dose in the afternoon yesterday which helped to transition him off the insulin drip. * Novolog started yesterday based on wt/stress of 2. * Fasting BSG today was 197 mg/dl. Lower dose of basal 25 units given in AM. * Patient was not eating well due to nausea/vomiting. Novolog correction factor tightened to 15 at breakfast. Pre-lunch BSG trended down to 167 mg/dl. 05/30/23 * EH is a 58 year old male who presents to ED on 05/30/23 for evaluation of COVID- 19 symptoms (productive cough, fatigue, weakness, SOB, nausea, and vomiting) * Initial labs suggestive of severe DKA (anion gap of 34, serum bicarbonate 4 mmol/L, BSG of 392 mg/dL, ABG pH less than 7) * Insulin infusion and IV fluids initiated in ED. Current IV fluids of sodium bicarb + potassium chloride in SW @250 mL/hr. * Patient with history of poorly controlled T2DM w/ reported non-compliance with insulin regimen at home. Pharmacy consulted 2 years ago for very similar presentation of DKA in context of COVID-19. * This past admission suggests glycemic control may be achieved w/ 25-30 units of basal and bolus insulin at CF of 25 and carb ratio of 8. Although, anticipating significant insulin deficiency in light of non-compliance with home regimen. May require more basal up front. PLAN FOR INPATIENT GLYCEMIC CONTROL: * Hold outpatient oral diabetes medications * Basal insulin * Lantus 30 units SC QAM * Bolus insulin * NovoLog per scale ACHS or Q6hrs while NPO * Goal Range: Low 110 mg/dL - High 140 mg/dL * Correction Factor: 15 mg/dL/unit * Nutritional / Prandial insulin per carb ratio of 1 unit per 8 grams CHO consumed
--- NOTE | 2023-06-02 14:16 | Discharge Summary ---
Date of Service June 02, 2023 Admission HPI Per Admitting Provider 58 yo male with PMHx of DM2 and HLD presents with illness. 3 days ago patient developed a productive cough which has been persistent since. He has had associated fatigue, weakness, shortness of breath, nausea, and some vomiting. Denies fevers, chills, chest pain, abdominal pain, diarrhea, dysuria, urinary frequency. He tested positive for COVID with a home test prior to ED arrival. He has been noncompliant with his insulin at home. He was hospitalized about 1 year ago for DKA as well with COVID. Admission Exam Per Admitting Provider Constitutional: in acute distress, pleasant and normal affect, intact memory. AOx3. Vitals as above. HEENT: No scleral injection or discharge.Dry mucous membranes. Neck: Supple without lymphadenopathy or thyromegaly. Trachea midline. Lungs: No wheezes/rales/rhonchi. +kussmaul breathing. Cardiac: Regular rate and rhythm. No murmurs. No lower extremity edema. 2+ distal peripheral pulses. Abdomen: Bowel sounds present. Soft, nontender, and nondistended.No guarding. No hepatosplenomegaly. MSK: No cyanosis or clubbing. Extremities motor strength 5/5. Skin: No rashes, warm, dry. Neurologic: no focal deficits Principal Diagnosis DKA, COVID positive Discharge Exam Constitutional WD/WN, vitals as above Eyes + anicteric sclerae; no conjunctival abnormality ENMT Ears: no external ear abnormality Nose: no external nose abnormality Respiratory normal respiratory effort, lungs clear to auscultation Cardiovascular RRR, no murmur, no edema Skin no rashes, warm and dry Psychiatric A+Ox3, euthymic affect Discharge Data Allergies Allergy/AdvReac Type Severity Reaction Status Date / Time No Known Allergies Allergy Unverified 05/29/21 00:29 Consultations 05/30/23 06:00 ED Decision to Admit Stat 05/30/23 08:23 Consult Commissioned Police Officer Routine Ordered Studies Chest X-Ray 05/30/23 01:31 XR chest 1V portable HISTORY: covid-19, cough COMPARISON: Chest 05/28/2021. FINDINGS: The lungs are clear. Cardiac silhouette is normal in size. No pleural effusions. No pneumothorax. IMPRESSION: No acute process. ACT 112: Negative or not required by law. Electronically signed by: Jt Webber M.D. 05/30/2023 7:36 AM Hospital Course (1) DKA (diabetic ketoacidosis): Romel Andersen is a 58 year-old male with a past medical history of T2DM, HLD, and prior episode of DKA who presents with symptoms of nausea, vomiting, weakness and shortness of breath DKA| DM2, Uncontrolled Patient presented with 3 days ongoing cough, sob, weakness. Labs consistent with DKA. Likely secondary to medication noncompliance with concurrent COVID illness. DKA resolved, transitioned off Insulin drip to subQ insulin basal/bolus. Did check C-Peptide given DKA presentation in Type 2 Diabetic; still pending at time of discharge. Had not been taking home medications (semaglutide, metformin) recently. Hgb A1C 13.8% on admission, per chart review did appear to have good glycemic control in the middle of 2021 with largely dietary control, hemoglobin a1c 6-7. Discharged patient on Semglee 25 units daily, as well as Novolog per carb count/correctional scale up to 40 units per day. * Goal Range: Low 100 mg/dL - High 150 mg/dL * Correction Factor: 30 mg/dL/unit * Nutritional/Prandial insulin per carb ratio of 1 unit per 10 grams CHO consumed Referral placed for natural resources extension educator with [facility], encouraged close follow up with PCP for further insulin adjustments. COVID Positive On admission tested positive for COVID, endorses several days of SOB, weakness, cough. CXR unremarkable, no acute process. O2 saturation appropriate on RA, no supplemental oxygen needed during admission. Remaining symptom at time of discharge is a lingering cough. HLD Continue home statin (2) DM2 (diabetes mellitus, type 2): (3) Hyperlipidemia: (4) COVID: Total Time Total Time Spent Total Time Spent (In Minutes): . Discharge Plan Discharge Items Patient Disposition: Home - Self-Care Reason For Visit: DKA Discharge Diagnosis: COVID-19, DKA Activity: Per Instructions section Non-emergency contact: Primary Care Provider Call non-emergency contact if: you have any medication questions and your symptoms worsen Follow-up/Referrals: Thalia Vela [Primary Care Provider] - 06/10/23 7:45 am (follow up PCP appt: 06/10/23 @ 7:[address] Ferreira) Diet: Carb Consistent or DM2 Addtl Attending Provider Instructions: You were admitted to the hospital for shortness of breath, cough, fatigue/weakness. You were found to be in DKA and were also COVID positive. You were treated with an insulin drip and were eventually able to switch to subcutaneous insulin. As we discussed, it is somewhat unusual for you to enter DKA as previously diet controlled type 2 diabetic, we sent a test for c-peptide level (results pending at time of discharge) to help look into this further. It will be important for you to closely monitor your blood sugar when restarting insulin at home, please contact your PCP to schedule a hospital discharge follow up appointment. A discharge summary will be sent to your primary care physician to ensure continuity of care. Follow-up appointments: We have requested a follow-up appointment with your primary care physician within one week of discharge. Please call their office if you do not hear from them. Keep all your follow-up appointments as already scheduled. If you cannot make an appointment, notify your provider. Medications: Your medication list has been reviewed and reconciled upon discharge to ensure accuracy and continuity of care. An updated list of all your medications is included with your hospital discharge paperwork. Please review this list closely, and make note of any changes. We sent a new medication for Semglee (glargine) to your pharmacy. Take Semglee 20 units daily. We sent a new medication for Novolog insulin to your pharmacy. Use Novolog per carb count/correctional scale up to 40 units per day. * Goal Range: Low 100 mg/dL - High 150 mg/dL * Correction Factor: 30 mg/dL/unit * Nutritional/Prandial insulin per carb ratio of 1 unit per 10 grams CHO consumed *Please note that you may require adjustments to the dosages and parameters above at your follow up appointment* CALL 911 OR GO TO THE EMERGENCY DEPARTMENT if you experience any of the following: Sudden, severe abdominal pain or nausea/vomiting Severe chest pain, or chest pain that radiates (moves) to your jaw or arm Sudden, severe shortness of breath or difficulty breathing Thank you for allowing us to participate in your care. Pending Studies at Discharge: Yes (C-Peptide level pending at time of discharge) Stand-Alone Forms: [facility], Smoking Cessation Medications and DC Order Prescriptions: New (DME) lancets [OneTouch Delica Plus Lancet] 30 gauge misc See Rx Instructions .Route Qty: 100 0RF Rx Instructions: use five times daily (DME) OneTouch Verio test strips Strip See Rx Instructions .Route Qty: 50 0RF Rx Instructions: to check 5x per day insulin glargine-yfgn [Semglee(insulin glarg-yfgn)Pen] 100 unit/mL (3 mL) insulin pen 25 unit subcut QAM Qty: 15 0RF Continued rosuvastatin 5 mg tablet 5 mg PO DAILY aspirin 81 mg Tablet 81 mg PO DAILY Rx Instructions: 4x/week potassium chloride 20 mEq tablet extended release 20 meq PO DAILY Qty: 7 0RF magnesium oxide 400 mg (241.3 mg magnesium) tablet 400 mg PO DAILY Qty: 7 0RF (DME) blood sugar diagnostic Strip See Rx Instructions .Route Qty: 150 0RF Rx Instructions: test five times a day (DME) pen needle, diabetic 32 gauge x 5/32" needle See Rx Instructions .Route Qty: 50 0RF Rx Instructions: As directed insulin aspart U-100 100 unit/mL (3 mL) insulin pen 1 sliding scale dose subcut USEASDIRECTD Qty: 15 0RF Rx Instructions: Per carb count/correctional scale up to 40 units per day Discontinued metformin 500 mg tablet extended release 24 hr 500 mg PO BID (DME) lancets [OneTouch Delica Lancets] 33 gauge misc See Rx Instructions .Route Qty: 150 0RF Rx Instructions: test 5 times a day Discharge Orders: Discharge Order (Routine); Ordered 06/02/23 Ordered By: Laurita Tse Admission Data Admit Date/Time: 05/30/23 06:32 Attending Provider: Mercedes Santiago Admit Provider: Michael Griffin Primary Care Provider: Thalia Vela Other Providers: Yoshi Parks; Geovanny See; Lloyd Montelongo Other Interventions: Discharge Summary Assessment (RN) Last Done: 06/02/23 15:39 Supervising Physician Co-Signing Physician Notes Attending Physician Supervision Note: I independently interviewed and examined the patient and verified the tyler history and physical, reviewed labs and image studies and agree with findings and care plan noted above.
== END 2023-06-02 16:34 | disposition home or self-care (01) | DRG 177 ==
LOC: SUATTDRO → ED 01:11 → 1E 06:32 → SUATTDRO 06:32 → 1E 07:40

== ENCOUNTER 2024-04-23 10:07 | Inpatient (IN) ==
[2024-04-23] MEDS: cefTRIAXone SODIUM 2,000 MG/50 ML BAG IV STA (10:52)
--- NOTE | 2024-04-23 10:54 | Emergency Department Note ---
ED Provider Note History of Present Illness Chief Complaint: Infection, Wound Stated Complaint: L HAND INFECTED FINGER Time Seen by Provider: 04/23/24 10:17 59-year-old male who presents to the emergency department for evaluation of progressively worsening left middle finger infection. 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 The patient reports that the wounds were healing well until he started to notice swelling of the middle finger this past Friday (4 days ago). The patient reports that he then started to develop redness on Friday. He was seen at his [facility] PCP's office, and started on Bactrim DS antibiotics without any additional antibiotic coverage. He was also seen in the office by Dr. Ludwig, [facility], who did get x- rays of the finger that were normal. The patient reports that the finger has become significantly more swollen and red overnight. The patient reports that he can also express purulence from the wound now, where it was previously serosanguineous drainage. He denies any pain extending into the hand or wrist region. He denies any significant pain. Tetanus immunization is up-to-date. The patient is right-hand dominant. Home Medications Medication Instructions Recorded Confirmed Type blood sugar diagnostic (OneTouch #50 ea 06/02/23 12/19/23 Rx Verio test strips) lancets 30 gauge (OneTouch Delica #100 ea 06/02/23 12/19/23 Rx Plus Lancet) pen needle, diabetic 32 gauge x #50 ea 06/02/23 12/19/23 Rx 5/32" blood sugar diagnostic (Contour 08/22/23 12/19/23 History Next Test Strips) insulin aspart U-100 100 unit/mL 1 sliding scale dose subcut 08/22/23 04/23/24 History (3 mL) subcutaneous pen USEASDIRECTD multivitamin 1 tab PO DAILY 08/22/23 04/23/24 History insulin glargine 100 unit/mL (3 24 unit (0.24 mL) subcut QAM #30 mL 03/25/24 04/23/24 Rx mL) subcutaneous pen (Basaglar KwikPen U-100 Insulin) aspirin 81 mg tablet,delayed 81 mg PO DAILY 04/23/24 04/23/24 History release rosuvastatin 10 mg tablet 10 mg PO HS 04/23/24 04/23/24 History sulfamethoxazole 800 2 tab PO BID 04/23/24 04/23/24 History mg-trimethoprim 160 mg tablet telmisartan 80 mg tablet 80 mg PO DAILY 04/23/24 04/23/24 History Allergies Allergy/AdvReac Type Severity Reaction Status Date / Time No Known Allergies Allergy Unverified 04/23/24 13:14 Past Med/Surg History Problem List (Updated 04/23/24 @ 16:32 by Raphael Smith) Type 2 diabetes mellitus (Acute) Cellulitis of left middle finger (Acute) Cellulitis of left middle finger Benign hypertension Diabetes mellitus type 1, controlled, 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 [employer] Other Information That Helps Us Care for You: No Feels Safe at Home: Yes Safety Concerns: Feels Safe At This Time Assistive Devices: Glasses Physical Exam Vital Signs Vital Signs - 24 hr 04/23/24 10:14 04/23/24 14:07 04/23/24 16:15 Temperature 36.5 C Temperature Source Oral Pulse Rate 92 H Pulse Rate [Apical] 73 52 L Pulse Rhythm [Apical] Regular Regular Pulse Strength [Apical] Normal Normal Respiratory Rate 20 18 20 Respiratory Effort / Characteristics Non-Labored Spontaneous Non-Labored Non-Labored Spontaneous Respiratory Depth Normal Normal Normal Respiratory Pattern Regular Regular Regular Blood Pressure 215/113 H Blood Pressure [Right Arm] 181/103 H 169/93 H Blood Pressure Mean 147 Blood Pressure Mean [Right Arm] 129 118 Blood Pressure Position [Right Arm] Lying Sitting Pulse Oximetry 97 97 94 Oxygen Delivery Method Room Air Room Air Room Air Sepsis Recent Fever Within 48 Hours No Sepsis New/Unexplained Change in Mental Status N/A Sepsis Action Taken by Nursing No Action Required CONSTITUTIONAL: Healthy and well nourished. Patient does not appear in any acute distress. MUSCULOSKELETAL: Examination shows notable edema and erythema of the left middle finger. Patient does have evidence for a linear and dorsal laceration across the proximal phalanx region that appears to be healing well. Erythema does not extend onto the distal metacarpal region or palm. No pain with flexion and extension of the MCP joint. Cap refill the fingers less than 2 seconds. INTEGUMENTARY: No rash or other significant dermatologic conditions noted. HEMATOLOGIC: No ecchymosis or petechiae. PSYCHIATRIC: Positive affect. NEUROLOGIC: Left middle fingertip is sensory intact. Course Course Patient history and physical exam were performed. Nurses notes reviewed. Vital signs are reviewed, showing an elevated blood pressure. I did try to review the patient's prescription history, but unfortunately the antibiotics were not listed. The patient reports that he was only treated with Bactrim DS antibiotics. At this point, I did recommend establishing IV, administering additional IV Rocephin for better coverage. Labs were also ordered, including wound cultures which were collected by me. At this point, I did reach out to Dr. Hilliard, who is on-call today for their practice. He indicated that he was in surgery, and requested IV antibiotics until he can reevaluate the patient. I have then received notification from one of my [facility] colleagues that they spoke with orthopedics about another patient, and they requested that my patient remain n.p.o. as they anticipate taking the patient to the OR for an I&D procedure. I did advise the patient of this plan. The patient refused any further analgesics while awaiting orthopedic arrival. Dr. Hilliard did eventually arrive in the emergency department, and after physical examination, recommended admission by the hospitalist service for further IV antibiotics, and he will reassess the wound in the morning. At this point, he does not feel that an emergent I&D procedure is warranted. I did discuss the case further with our ED Pharmacist regarding his injury and occupation. She recommended that I also added on IV Zosyn for further broad-spectrum coverage. The case was then discussed with Dr. Cruz, [facility] hospitalist. Please see hospitalist and orthopedic dictations for further treatment and final disposition. Administered Medications Daptomycin 400 mg/ Syringe 8 mls @ 4 mls/min IV Q24H ADILSON; Protocol Stop: 04/30/24 16:29 Last Admin: 04/23/24 17:19 Dose: 4 mls/min Documented By: JESSICA Discontinued Medications Ceftriaxone Sodium (Rocephin) 2,000 mg in 50 mls @ 100 mls/hr IV NOW STA Stop: 04/23/24 11:03 Last Infusion: 04/23/24 11:11 Dose: Infused Documented By: Admin: 04/23/24 10:52 Dose: 100 mls/hr Documented By: MANUEL Piperacillin Sod/Tazobactam Sod (Zosyn) 4.5 gm in 100 mls @ 200 mls/hr IV NOW ONE; Protocol Stop: 04/23/24 16:25 Last Infusion: 04/23/24 16:43 Dose: Infused Documented By: Admin: 04/23/24 16:13 Dose: 200 mls/hr Documented By: JESSICA Vancomycin HCl 2,500 mg/ (Sodium Chloride) 550 mls @ 200 mls/hr IV NOW ONE Stop: 04/23/24 18:48 Last Admin: 04/23/24 17:19 Dose: Not Given Documented By: JESSICA Medical Decision Making Medical Records Attestation: I reviewed the patient's medical records. Home Medications was personally reviewed by il Laboratory Data Attestation: I reviewed the patient's lab results. 04/23/24 10:48 04/23/24 10:48 Lab Results 04/23/24 Range/Units 10:48 WBC 7.07 (4.8-10.8) K/ul RBC 4.79 (4.70-6.10) M/uL Hgb 14.7 (14.0-18.0) g/dl Hct 42.2 (42.0-52.0) % MCV 88.1 (80.0-100.0) fL MCH 30.7 (25.0-34.0) pg MCHC 34.8 (32.0-36.0) g/dL RDW Std Deviation 40.9 (36.4-46.3) fL RDW Coeff of Davon 12.5 (11.5-14.5) % Plt Count 170 (130-400) K/uL MPV 10.5 (9.4-12.4) fL Immature Gran % (Auto) 0.4 % Neut % (Auto) 81.3 % Lymph % (Auto) 10.0 % [place] % (Auto) 7.2 % Eos % (Auto) 0.7 % Baso % (Auto) 0.4 % Neut # (Auto) 5.74 (1.40-6.50) K/uL Lymph # (Auto) 0.71 L (1.20-3.40) K/uL [place] # (Auto) 0.51 (0.11-0.59) K/uL Eos # (Auto) 0.05 (0.00-0.50) K/uL Baso # (Auto) 0.03 (0.00-0.20) K/uL Immature Gran # (Auto) 0.03 (0.01-0.20) K/uL Sodium 137 (136-145) mmol/L Potassium 4.2 (3.5-5.1) mmol/L Chloride 102 (98-107) mmol/L Carbon Dioxide 28 (21-32) mmol/L Anion Gap 7 (3-11) BUN 14 (6-23) mg/dl Creatinine 0.83 (0.6-1.4) mg/dl Est Cr Clr Drug Dosing 133.9 ml/min eGFR 100.82 BUN/Creatinine Ratio 16.9 (10-20) Glucose 285 H (70-99(Fasting)) mg/dl Calcium 9.3 (8.6-10.3) mg/dl MDM Narrative See ED Course section for further details of today's visit. The patient presents for evaluation of left middle finger infection after sustaining an angle saw grinder injury to the finger 2 weeks ago. He started to develop edema and an infection over the past 5 days. He was seen by orthopedics 2 days ago with normal x-rays. It is noted that the patient was only treated with Bactrim DS antibiotics, and has had a progressively worsening infection. IV access was established, and the patient was administered IV Rocephin for broader infection coverage. Labs were also reviewed and not concerning. The case was discussed with Dr. Hilliard, partner with Dr. Ludwig who saw the patient on Friday, and Dr. Hilliard recommended an I&D procedure. I did order wound cultures, which are currently pending. After Dr. Hilliard evaluated the patient in the emergency department, he recommended admission for IV antibiotics, and he will reassess the wound in the morning. The patient will be admitted by the [facility] service for IV antibiotics. I did discuss the case with our ED pharmacist, who recommended IV Zosyn for broader spectrum coverage. Impression Cellulitis of left middle finger, Type 2 diabetes mellitus Discharge Plan Visit Data Chief Complaint: Infection, Wound Stated Complaint: L HAND INFECTED FINGER ED Provider: Quan Mendez ED Midlevel Provider: Raphael Smith Discharge Problem: Cellulitis of left middle finger, Type 2 diabetes mellitus Patient Disposition: Admitted As Inpatient Discharge Instructions Interventions: ED Discharge Assessment Last Done: 04/23/24 17:49
[2024-04-23 11:15] LABS: Basophils # (auto) 0.03 K/uL (0.00-0.20); Basophils % (auto) 0.4 %; Eosinophils # (auto) 0.05 K/uL (0.00-0.50); Eosinophils % (auto) 0.7 %; Hematocrit (blood only) 42.2 % (42.0-52.0); Hemoglobin 14.7 g/dl (14.0-18.0); Immature Granulocytes # (auto) 0.03 K/uL (0.01-0.20); Immature Granulocytes % (auto) 0.4 %; Lymphocytes # (auto) 0.71 K/uL (1.20-3.40); Mean Corpuscular Hemoglobin 30.7 pg (25.0-34.0); Mean Corpuscular Hgb Conc 34.8 g/dL (32.0-36.0); Mean Corpuscular Volume 88.1 fL (80.0-100.0); Mean Platelet Volume 10.5 fL (9.4-12.4); Monocytes # (auto) 0.51 K/uL (0.11-0.59); Monocytes % (auto) 7.2 %; Neutrophils # (auto) 5.74 K/uL (1.40-6.50); Neutrophils % (auto) 81.3 %; Platelet Count 170 K/uL (130-400); RDW Coefficient of Variation 12.5 % (11.5-14.5); RDW Standard Deviation 40.9 fL (36.4-46.3); Red Blood Count 4.79 M/uL (4.70-6.10); White Blood Count 7.07 K/ul (4.8-10.8)
[2024-04-23 11:25] LABS: BUN Creatinine Ratio 16.9 (10-20); Calcium 9.3 mg/dl (8.6-10.3); Creatinine Clr Calc Pharmacy 133.9 ml/min; Potassium 4.2 mmol/L (3.5-5.1)
[2024-04-23] MEDS ORDERED: VANCOMYCIN CONSULT ACTIVE PRN (16:04)
[2024-04-23] MEDS: PIPERACILLIN/TAZOBACTAM 4.5 GM/100 ML BAG IV ONE (16:13)
--- NOTE | 2024-04-23 16:29 | History & Physical Report ---
Date of Service April 23, 2024 Assessment & Plan (1) Cellulitis of left middle finger: Plan: Worsening infection on the left third and second fingers x 2 weeks; original injury on Wednesday 04/11 Failure of outpatient antibiotics (Bactrim prescribed on Saturday 04/21) Deep tissue aerobic and anaerobic culture ordered on arrival Daptomycin 400 mg IV q24h Zosyn 4.5 g IV q8h Acetaminophen as needed for pain/fever Orthopedic surgery consult appreciated Scheduled I&D for the morning of 04/24 N.p.o. at midnight A.m. CBC, BMP, A1c (2) Diabetes mellitus type 1, controlled, with complications: Plan: Last A1c at 7.9% on 11/03/2023 Patient is currently on Lantus 24u QAM Dose reduced to Lantus 10 u BID while inpatient SSI; with target BSG range 110-140mg/dL, CF 35, carb ratio 11 T1DM diet BSG ACHS Adjust regimen as needed (3) Benign hypertension: Plan: Continue telmisartan (4) Hyperlipidemia: Plan: Hold rosuvastatin while on daptomycin Plan Disposition: Obs -admit to [facility] Full code T1DM diet VTE PPx: Low risk, encourage ambulation History of Present Illness Chief Complaint: Left third finger infection, wound Primary Care Provider: Thalia Vela Romel is a pleasant 59-year-old male with PMH of T1DM, HLD, and HTN. He presented on 04/23 for an infection on his left third finger. Patient originally injured his hand when he nicked it on an angle hob grinder on Wednesday 04/11. He reports that it was starting to heal on its own, but then began to swell this past Thursday 04/19. He was prescribed antibiotics outpatient (Bactrim) on Saturday 04/21, and began taping at that night. Despite this he has had worsening swelling and purulent drainage, and now has decreased ability to flex his finger. Drainage was serosanguineous up until yesterday when he became purulent. No history of MRSA infection. Patient took his regular morning medicine today, including his insulin; no recent change in medications other than starting Bactrim. NKDA. He reports the pain in his left middle finger as 1/10 at present and 2.5/10 at worst. He does still exhibit some ability to bend it, but notes it is difficult due to his swelling. Patient denies smoking, tobacco use, recent alcohol use. 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 Patient is hypertensive 169/93 and mildly bradycardic at 52 bpm at time of admission; vitals otherwise stable. ED course: Daptomycin 40 mg IV Zosyn 4.5 g IV ROS: Patient endorses pain/numbness/tingling in the left second, third, and fourth fingers, and swelling/erythema in the third finger. Patient denies fever, chills, night-sweats, chest pain, SOB, cough, abdominal pain, N/V/D, or changes in urinary/bowel habits. Allergies Allergy/AdvReac Type Severity Reaction Status Date / Time No Known Allergies Allergy Unverified 04/23/24 13:14 Home Medications Medication Instructions Recorded Confirmed Type blood sugar diagnostic (OneTouch #50 ea 06/02/23 12/19/23 Rx Verio test strips) lancets 30 gauge (OneTouch Delica #100 ea 06/02/23 12/19/23 Rx Plus Lancet) pen needle, diabetic 32 gauge x #50 ea 06/02/23 12/19/23 Rx 5/32" blood sugar diagnostic (Contour 08/22/23 12/19/23 History Next Test Strips) insulin aspart U-100 100 unit/mL 1 sliding scale dose subcut 08/22/23 04/23/24 History (3 mL) subcutaneous pen USEASDIRECTD multivitamin 1 tab PO DAILY 08/22/23 04/23/24 History insulin glargine 100 unit/mL (3 24 unit (0.24 mL) subcut QAM #30 mL 03/25/24 04/23/24 Rx mL) subcutaneous pen (Basaglar KwikPen U-100 Insulin) aspirin 81 mg tablet,delayed 81 mg PO DAILY 04/23/24 04/23/24 History release rosuvastatin 10 mg tablet 10 mg PO HS 04/23/24 04/23/24 History sulfamethoxazole 800 2 tab PO BID 04/23/24 04/23/24 History mg-trimethoprim 160 mg tablet telmisartan 80 mg tablet 80 mg PO DAILY 04/23/24 04/23/24 History Past Med/Surg History Problem List (Updated 04/23/24 @ 16:32 by Raphael Smith) Type 2 diabetes mellitus (Acute) Cellulitis of left middle finger (Acute) Cellulitis of left middle finger Benign hypertension Diabetes mellitus type 1, controlled, with complications (~2019) MCKENZIE w/ retinopathy Hyperlipidemia Medical History COVID Pneumonia due to COVID-19 virus Acute dehydration Nausea & vomiting MARYLIN (acute kidney injury) DKA (diabetic ketoacidosis) DM2 (diabetes mellitus, type 2) Dx. 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 [employer] Other Information That Helps Us Care for You: No Feels Safe at Home: Yes Safety Concerns: Feels Safe At This Time Assistive Devices: Glasses Review of Systems 2 Review of Systems: See HPI above Physical Exam 2 Physical Exam: General: no acute distress; pleasant affect; non-toxic appearing; well- nourished; cooperative; SpO2 94% on RA HEENT: normocephalic, atraumatic; no scleral icterus; PERRLA; vision and hearing grossly intact Neck: supple; no lymphadenopathy; trachea midline Skin: warm, dry without signs of tenting; no cyanosis; no rashes or bruising noted Left hand: Significant erythema and swelling in the left third finger; 1 cm deep tissue lesion with serosanguineous/purulent drainage (see photo below); dorsal aspect of patient's left hand is edematous with +2 pitting edema; superficial lesions noted on the second and fourth fingers as well CV: chest wall NTP; RRR; S1/S2 normal; no murmurs/rubs/gallops; pulses intact and symmetric at radial, DP, and PT Lungs: no acute respiratory distress; symmetrical chest wall expansion; clear breath sounds across all lung skelton w/o adventitious sounds; no wheezing ABD: Soft, NTP; BS present; no rebound/guarding; no distention MSK: no tics or fasciculations; no edema noted in the LEs b/l, nonerythematous Neuro: A&Ox3; normal mood and affect; fluent speech; no focal deficits; sensation grossly intact in the LEs b/l Results & Data Results & Data Vital Signs (Past 12 Hours) Vital Signs Temp Pulse Pulse Resp BP BP Pulse Ox 04/23/24 16:15 52 L 20 169/93 H 94 04/23/24 14:07 73 18 181/103 H 97 04/23/24 10:14 36.5 C 92 H 20 215/113 H 97 O2 Del Method 04/23/24 16:15 Room Air 04/23/24 14:07 Room Air 04/23/24 10:14 Room Air Laboratory Results Abnormal lab results 04/23/24 Range/Units 10:48 Lymph # (Auto) 0.71 L (1.20-3.40) K/uL Glucose 285 H (70-99(Fasting)) mg/dl Code Status & VTE Plan Code Status Full code VTE Prophylaxis Plan VTE Prophylaxis will be ordered: Yes Supervising Physician Co-Signing Physician Notes I personally saw and examined the patient. I independently reviewed the labs, EKG, imaging, problem list, medication list, past medical history and family history. I verified all tyler points and agree with Jt Ayala PA-C with the following exceptions and/or additions: 59 year old male present to the ER with left middle finger cellulitis O/E HS RRR, no murmurs, Chest CTAB, Abdo SNT, Left middle finger erythema and swelling with trauma over PIPJ as can be seen in above pictures A/P Left middle finger cellulitis - IV daptomycin + Zosyn, holding statin while on daptomycin. NPO after midnight. Consult orthopedics T1DM - Reduce Lantus to 10 units QAM tomorrow, Novolog: --Goal BSG Range: Low 110 mg/dL, High 140 mg/dL --Correction Factor: 20 mg/dL/unit --Carbohydrate ratio = 8 g/unit --BSGs ACHS if eating, q6h if npo PG Care Time/CCT Total # of Minutes Spent Total Time Spent with Patient: Total time spent is greater than 50% in coordination of care (as documented) at patient's floor/unit and/or counseling patient: C[place] [address] INT INP/OBS CARE 2/55MIN Patient Type Established Medical Decision Making Moderate Complexity Diagnoses Cellulitis of left middle finger L03.012 Diabetes mellitus type 1, controlled, with complications E10.8 Benign hypertension I10 Hyperlipidemia E78.5 Hyperlipidemia type: unspecified (4) Hyperlipidemia Hyperlipidemia type: unspecified Qualified Code(s): E78.5 - Hyperlipidemia, unspecified
[2024-04-23] MEDS: DAPTOmycin 400 MG in SYRINGE 0 ML IV SCH (17:19)
[2024-04-23] MEDS: VANCOMYCIN HCL 2,500 MG in SODIUM CHLORIDE 0.9% 500 ML IV ONE (17:19)
[2024-04-23] MEDS ORDERED: GLUCAGON FOR INJ 1 MG VIAL SQ PRN (18:06)
[2024-04-23] MEDS ORDERED: ONDANSETRON INJ 2 MG/ML 2 ML VIAL IV PRN (18:06)
[2024-04-23] MEDS ORDERED: CARBOHYDRATES FOR HYPOGLYCEMIA PO PRN (18:06)
[2024-04-23] MEDS ORDERED: GLUCOSE 40% GEL 15 GM TUBE PO PRN (18:06)
[2024-04-23] MEDS ORDERED: GLUCOSE 10 TAB/TUBE PO PRN (18:06)
[2024-04-23] MEDS ORDERED: MELATONIN 3 MG TAB PO PRN (18:06)
[2024-04-23] MEDS ORDERED: DEXTROSE 50% 50 ML SYRINGE IV PRN (18:06)
--- NOTE | 2024-04-23 18:36 | Orthopedic Consultation ---
Date of Consultation April 23, 2024 Assessment & Plan (1) Cellulitis of left middle finger: Recommend admission to Hospitalist service and continued IV antibiotics Warm soaks 50:50 NS & peroxide NPO after midnight, for possible OR tomorrow if not continuing to improve. Placed on the add-on list for tomorrow. 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 Worsening infection on the left middle finger x 2 weeks. Patient was seen by pcp who started on Bactrim. He was seen earlier in the week by my partner Dr. Ludwig; x-rays at that time were negative. The swelling and erythema have worsened over the last 2 days. I was consulted for further evaluation and treatment. The swelling and erythema have decreased since starting IV antibiotics. Allergies Allergy/AdvReac Type Severity Reaction Status Date / Time No Known Allergies Allergy Unverified 04/23/24 13:14 Home Medications Medication Instructions Recorded Confirmed Type blood sugar diagnostic (OneTouch #50 ea 06/02/23 12/19/23 Rx Verio test strips) lancets 30 gauge (OneTouch Delica #100 ea 06/02/23 12/19/23 Rx Plus Lancet) pen needle, diabetic 32 gauge x #50 ea 06/02/23 12/19/23 Rx 5/32" blood sugar diagnostic (Contour 08/22/23 12/19/23 History Next Test Strips) insulin aspart U-100 100 unit/mL 1 sliding scale dose subcut 08/22/23 04/23/24 History (3 mL) subcutaneous pen USEASDIRECTD multivitamin 1 tab PO DAILY 08/22/23 04/23/24 History insulin glargine 100 unit/mL (3 24 unit (0.24 mL) subcut QAM #30 mL 03/25/24 04/23/24 Rx mL) subcutaneous pen (Basaglar KwikPen U-100 Insulin) aspirin 81 mg tablet,delayed 81 mg PO DAILY 04/23/24 04/23/24 History release rosuvastatin 10 mg tablet 10 mg PO HS 04/23/24 04/23/24 History sulfamethoxazole 800 2 tab PO BID 04/23/24 04/23/24 History mg-trimethoprim 160 mg tablet telmisartan 80 mg tablet 80 mg PO DAILY 04/23/24 04/23/24 History Patient History Medical History COVID Pneumonia due to COVID-19 virus Acute dehydration Nausea & vomiting MARYLIN (acute kidney injury) DKA (diabetic ketoacidosis) DM2 (diabetes mellitus, type 2) Dx. 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 Sensation to light touch intact distally. + swelling & erythema of the dorsal finger centered around the PIP joint. laceration of the proximal to PIP joint. No active drainage. Able to flex digit. Minimal tenderness along flexor tendons. Results & Data Vital Signs (Past 12 Hours) Vital Signs Temp Pulse Pulse Pulse Resp BP BP 04/23/24 18:00 36.4 C L 58 L 16 205/100 H 04/23/24 16:15 52 L 20 169/93 H 04/23/24 14:07 73 18 181/103 H 04/23/24 10:14 36.5 C 92 H 20 215/113 H Pulse Ox O2 Del Method 04/23/24 18:00 98 Room Air 04/23/24 16:15 94 Room Air 04/23/24 14:07 97 Room Air 04/23/24 10:14 97 Room Air Laboratory Results Laboratory Results WBC 7.07 K/ul (4.8-10.8) 04/23/24 10:48 RBC 4.79 M/uL (4.70-6.10) 04/23/24 10:48 Hgb 14.7 g/dl (14.0-18.0) 04/23/24 10:48 Hct 42.2 % (42.0-52.0) 04/23/24 10:48 MCV 88.1 fL (80.0-100.0) 04/23/24 10:48 MCH 30.7 pg (25.0-34.0) 04/23/24 10:48 MCHC 34.8 g/dL (32.0-36.0) 04/23/24 10:48 RDW Std Deviation 40.9 fL (36.4-46.3) 04/23/24 10:48 RDW Coeff of Davon 12.5 % (11.5-14.5) 04/23/24 10:48 Plt Count 170 K/uL (130-400) 04/23/24 10:48 MPV 10.5 fL (9.4-12.4) 04/23/24 10:48 Immature Gran % (Auto) 0.4 % 04/23/24 10:48 Neut % (Auto) 81.3 % 04/23/24 10:48 Lymph % (Auto) 10.0 % 04/23/24 10:48 Major % (Auto) 7.2 % 04/23/24 10:48 Eos % (Auto) 0.7 % 04/23/24 10:48 Baso % (Auto) 0.4 % 04/23/24 10:48 Neut # (Auto) 5.74 K/uL (1.40-6.50) 04/23/24 10:48 Lymph # (Auto) 0.71 K/uL (1.20-3.40) L 04/23/24 10:48 Major # (Auto) 0.51 K/uL (0.11-0.59) 04/23/24 10:48 Eos # (Auto) 0.05 K/uL (0.00-0.50) 04/23/24 10:48 Baso # (Auto) 0.03 K/uL (0.00-0.20) 04/23/24 10:48 Immature Gran # (Auto) 0.03 K/uL (0.01-0.20) 04/23/24 10:48 Sodium 137 mmol/L (136-145) 04/23/24 10:48 Potassium 4.2 mmol/L (3.5-5.1) 04/23/24 10:48 Chloride 102 mmol/L (98-107) 04/23/24 10:48 Carbon Dioxide 28 mmol/L (21-32) 04/23/24 10:48 Anion Gap 7 (3-11) 04/23/24 10:48 BUN 14 mg/dl (6-23) 04/23/24 10:48 Creatinine 0.83 mg/dl (0.6-1.4) 04/23/24 10:48 Est Cr Clr Drug Dosing 133.9 ml/min 04/23/24 10:48 eGFR 100.82 04/23/24 10:48 BUN/Creatinine Ratio 16.9 (10-20) 04/23/24 10:48 Glucose 285 mg/dl (70-99(Fasting)) H 04/23/24 10:48 Calcium 9.3 mg/dl (8.6-10.3) 04/23/24 10:48 Diagnostic Findings PROCEDURE: 3 views of the left hand CLINICAL INFORMATION: Left hand pain, cut injury TECHNIQUE: 3 views of the left hand COMPARISON: None available FINDINGS: Soft tissue swelling seen about the long finger proximal phalanx. No fracture identified. IMPRESSION: Soft tissue swelling seen about the long finger proximal phalanx. Large amount of soft tissue swelling about the dorsum of the hand. This examination was dictated by Saúl Gould MD. Electronically signed by Saúl Huertas 04-23-2024 6:35 PM
[2024-04-23] MEDS ORDERED: LANTUS PER UNIT CHARGE SQ SCH (21:00)
[2024-04-23] MEDS: PIPERACILLIN/TAZOBACTAM 4.5 GM/100 ML BAG IV SCH (21:36)
[2024-04-23] MEDS: INSULIN ASPART PER UNIT CHARGE SC SCH (22:13)
[2024-04-24 05:53] LABS: Basophils # (auto) 0.05 K/uL (0.00-0.20); Basophils % (auto) 0.7 %; Eosinophils # (auto) 0.23 K/uL (0.00-0.50); Eosinophils % (auto) 3.3 %; Hematocrit (blood only) 38.6 % (42.0-52.0); Hemoglobin 13.2 g/dl (14.0-18.0); Immature Granulocytes # (auto) 0.02 K/uL (0.01-0.20); Immature Granulocytes % (auto) 0.3 %; Lymphocytes # (auto) 0.91 K/uL (1.20-3.40); Lymphocytes % (auto) 13.2 %; Mean Corpuscular Hemoglobin 29.9 pg (25.0-34.0); Mean Corpuscular Hgb Conc 34.2 g/dL (32.0-36.0); Mean Corpuscular Volume 87.3 fL (80.0-100.0); Mean Platelet Volume 10.1 fL (9.4-12.4); Monocytes % (auto) 8.7 %; Neutrophils # (auto) 5.11 K/uL (1.40-6.50); Neutrophils % (auto) 73.8 %; Platelet Count 181 K/uL (130-400); RDW Coefficient of Variation 12.9 % (11.5-14.5); RDW Standard Deviation 41.1 fL (36.4-46.3); Red Blood Count 4.42 M/uL (4.70-6.10); White Blood Count 6.92 K/ul (4.8-10.8)
[2024-04-24 06:06] LABS: BUN Creatinine Ratio 15.4 (10-20); Calcium 8.8 mg/dl (8.6-10.3); Creatinine Clr Calc Pharmacy 121.8 ml/min; Potassium 4.3 mmol/L (3.5-5.1)
[2024-04-24] MEDS: INSULIN ASPART PER UNIT CHARGE SC SCH ×2 (07:02→11:59)
[2024-04-24] MEDS: LOSARTAN POTASSIUM 50 MG TAB PO SCH (07:15)
[2024-04-24 07:18] LABS: Estimated Average Glucose 151 mg/dl; Hemoglobin A1C 6.9 % (4.5-5.6)
[2024-04-24] MEDS ORDERED: ONDANSETRON INJ 2 MG/ML 2 ML VIAL IV PRN (07:29)
[2024-04-24] MEDS ORDERED: fentaNYL citrate PF 100 MCG/2 ML VIAL IV PRN (07:29)
[2024-04-24] MEDS ORDERED: ePHEDrine sulfate 50 MG/ML AMP IV PRN (07:29)
[2024-04-24] MEDS ORDERED: ATROPINE SULFATE 0.1 MG/ML 10ML SYR IV PRN (07:29)
--- NOTE | 2024-04-24 07:29 | Anesthesiology Consultation ---
Date of Service April 24, 2024 Assessment & Plan Chart Review Chart Review: Acceptable Risk for Surgery and Patient NOT seen in Pre Admission Testing Consults Requested none History Surgery Operation Date: 04/24/24 07:30 Proposed Procedures p Incision and Drainage Extremity - Jc Roberto Hililard MD Height/Weight Height: 6 ft 2 in Weight: 123.1 kg Allergies Allergy/AdvReac Type Severity Reaction Status Date / Time No Known Allergies Allergy Unverified 04/23/24 13:14 Medications Home Medications Medication Instructions Recorded Confirmed Last Taken blood sugar diagnostic (OneTouch #50 ea 06/02/23 12/19/23 Unknown Verio test strips) lancets 30 gauge (OneTouch Delica #100 ea 06/02/23 12/19/23 Unknown Plus Lancet) pen needle, diabetic 32 gauge x #50 ea 06/02/23 12/19/23 Unknown " blood sugar diagnostic (Contour 08/22/23 12/19/23 Unknown Next Test Strips) insulin aspart U-100 100 unit/mL 1 sliding scale dose subcut 08/22/23 04/23/24 04/23/24 (3 mL) subcutaneous pen USEASDIRECTD multivitamin 1 tab PO DAILY 08/22/23 04/23/24 04/22/24 insulin glargine 100 unit/mL (3 24 unit (0.24 mL) subcut QAM #30 mL 03/25/24 04/23/24 04/23/24 mL) subcutaneous pen (Basaglar KwikPen U-100 Insulin) aspirin 81 mg tablet,delayed 81 mg PO DAILY 04/23/24 04/23/24 04/23/24 release rosuvastatin 10 mg tablet 10 mg PO HS 04/23/24 04/23/24 04/22/24 sulfamethoxazole 800 2 tab PO BID 04/23/24 04/23/24 04/23/24 mg-trimethoprim 160 mg tablet telmisartan 80 mg tablet 80 mg PO DAILY 04/23/24 04/23/24 04/23/24 Active Medications Generic Name Dose Route Start Last Admin Trade Name Freq PRN Reason Stop Dose Admin Daptomycin 400 mg/ Syringe 8 mls @ 4 mls/min 04/23/24 16:30 04/23/24 17:19 IV 04/30/24 16:29 4 mls/min Q24H ADILSON Administration Protocol Piperacillin Sod/Tazobactam Sod 4.5 gm in 100 mls @ 25 mls/hr 04/23/24 22:00 04/24/24 05:44 Zosyn IV 04/30/24 21:59 25 mls/hr Q8H ADILSON Administration Protocol Insulin Aspart 0 units 04/24/24 06:00 04/24/24 07:02 Insulin Aspart Per Unit Charge SC 05/24/24 05:59 Not Given Q6 ADILSON Losartan Potassium 100 mg 04/24/24 09:00 04/24/24 07:15 Losartan Potassium 50 Mg Tab PO 05/24/24 08:59 100 mg DAILY ADILSON Administration NPO Date Last Intake of Fluids: 04/23/24 Time Last Intake of Fluids: 00:00 Last Intake of Fluids Comment: Only allowed to take Ice chips and sips of water when taking his pills. Date Last Intake of Solids: 04/23/24 Time Last Intake of Solids: 00:00 Past Medical History Medical History COVID Pneumonia due to COVID-19 virus Acute dehydration Nausea & vomiting MARYLIN (acute kidney injury) DKA (diabetic ketoacidosis) DM2 (diabetes mellitus, type 2) Dx. later changed to MCKENZIE (Type 1) Past Family History Family History Mother Stroke Father , Liver cancer Cancer Past Surgical History Surgical History No pertinent past surgical history Social History Smoking Status: Never smoker Hx Alcohol Use: No alcohol intake frequency: a few times a month Hx Substance Use: No substance use type: does not use Physical Exam Vital Signs Last Vital Signs Temp 36.6 C 04/24/24 07:15 Pulse 69 04/24/24 07:15 Resp 18 04/23/24 20:48 BP 199/108 H 04/24/24 07:15 Pulse Ox 96 04/24/24 07:15 O2 Del Method Room Air 04/24/24 07:15 Testing Laboratory Results 04/24/24 05:31 04/24/24 05:31 Hemoglobin A1c 6.9 % (4.5-5.6) H 04/24/24 05:31 04/23/24 14:32 Gram Stain - Final Finger 04/24/24 04/23/24 05:46 20:02 POC Glucose 140 H 102 H
--- NOTE | 2024-04-24 07:31 | Orthopedic Progress Note ---
Date of Service April 24, 2024 Assessment & Plan (1) Cellulitis of left middle finger: Plan: Has been NPO after midnight, plan OR toady as not improving. Patient agrees and informed consent signed. On the add-on list. Continued IV antibiotics Admission and Anticipated Discharge Date Admission Date: April 23, 2024 Subjective Feels about the same Physical Exam Physical Exam: L MF: BCR < 2 sec. Sensation to light touch intact distally. + swelling & erythema of the dorsal finger centered around the PIP joint. Laceration of the proximal to PIP joint with active serosanginous drainage. Able to flex digit. Minimal tenderness along flexor tendons. No pain with extension of the digit. Results & Data Vital Signs (Past 12 Hours) Vital Signs Temp Pulse Resp BP Pulse Ox O2 Del Method 04/24/24 07:15 36.6 C 69 199/108 H 96 Room Air 04/24/24 07:00 177/98 H 04/23/24 20:48 36.6 C 57 L 18 184/98 H 97 Room Air Laboratory Results Laboratory Results WBC 6.92 K/ul (4.8-10.8) 04/24/24 05:31 RBC 4.42 M/uL (4.70-6.10) L 04/24/24 05:31 Hgb 13.2 g/dl (14.0-18.0) L 04/24/24 05:31 Hct 38.6 % (42.0-52.0) L 04/24/24 05:31 MCV 87.3 fL (80.0-100.0) 04/24/24 05:31 MCH 29.9 pg (25.0-34.0) 04/24/24 05:31 MCHC 34.2 g/dL (32.0-36.0) 04/24/24 05:31 RDW Std Deviation 41.1 fL (36.4-46.3) 04/24/24 05:31 RDW Coeff of Davon 12.9 % (11.5-14.5) 04/24/24 05:31 Plt Count 181 K/uL (130-400) 04/24/24 05:31 MPV 10.1 fL (9.4-12.4) 04/24/24 05:31 Immature Gran % (Auto) 0.3 % 04/24/24 05:31 Neut % (Auto) 73.8 % 04/24/24 05:31 Lymph % (Auto) 13.2 % 04/24/24 05:31 [place] % (Auto) 8.7 % 04/24/24 05:31 Eos % (Auto) 3.3 % 04/24/24 05:31 Baso % (Auto) 0.7 % 04/24/24 05:31 Neut # (Auto) 5.11 K/uL (1.40-6.50) 04/24/24 05:31 Lymph # (Auto) 0.91 K/uL (1.20-3.40) L 04/24/24 05:31 [place] # (Auto) 0.60 K/uL (0.11-0.59) H 04/24/24 05:31 Eos # (Auto) 0.23 K/uL (0.00-0.50) 04/24/24 05:31 Baso # (Auto) 0.05 K/uL (0.00-0.20) 04/24/24 05:31 Immature Gran # (Auto) 0.02 K/uL (0.01-0.20) 04/24/24 05:31 Sodium 136 mmol/L (136-145) 04/24/24 05:31 Potassium 4.3 mmol/L (3.5-5.1) 04/24/24 05:31 Chloride 104 mmol/L (98-107) 04/24/24 05:31 Carbon Dioxide 26 mmol/L (21-32) 04/24/24 05:31 Anion Gap 6 (3-11) 04/24/24 05:31 BUN 14 mg/dl (6-23) 04/24/24 05:31 Creatinine 0.91 mg/dl (0.6-1.4) 04/24/24 05:31 Est Cr Clr Drug Dosing 121.8 ml/min 04/24/24 05:31 eGFR 97.09 04/24/24 05:31 BUN/Creatinine Ratio 15.4 (10-20) 04/24/24 05:31 Glucose 165 mg/dl (70-99(Fasting)) H 04/24/24 05:31 POC Glucose 140 mg/dl (70-99) H 04/24/24 05:46 Estimat Average Glucose 151 mg/dl 04/24/24 05:31 Hemoglobin A1c 6.9 % (4.5-5.6) H 04/24/24 05:31 Calcium 8.8 mg/dl (8.6-10.3) 04/24/24 05:31
[2024-04-24] MEDS ORDERED: MIDAZOLAM HCL 1 MG/ML 2ML VIAL ONE (07:37)
[2024-04-24] MEDS ORDERED: fentaNYL citrate PF 100 MCG/2 ML VIAL ONE (07:37)
[2024-04-24] MEDS ORDERED: LIDOCAINE 2% 2 ML VIAL/AMP(20MG/ML) INFIL ONE (07:38)
[2024-04-24] MEDS ORDERED: ONDANSETRON INJ 2 MG/ML 2 ML VIAL ONE (07:39)
[2024-04-24] MEDS ORDERED: PROPOFOL IV EMULSION 10 MG/ML 20 ML VIAL IV ONE (07:39)
[2024-04-24] MEDS ORDERED: hydrALAZINE HCL 20 MG/ML VIAL ONE (07:39)
[2024-04-24] MEDS ORDERED: SODIUM CHLORIDE 0.9% PF INJ 10 ML VIAL ONE (08:25)
[2024-04-24] MEDS: LIDOCAINE 1%/EPINEPHRINE 1:100,000 50 ML VIAL ONE (08:56)
[2024-04-24] MEDS: BUPIVACAINE 0.5 % 5 MG/1 ML MPF 30ML VIAL ONE (08:56)
--- NOTE | 2024-04-24 09:16 | Post Operative Brief Note ---
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
--- NOTE | 2024-04-24 09:17 | Operative Report ---
Post Operative Report Pre & Post Diagnosis Operation Date: 04/24/24 07:30 Pre-Op Diagnosis: left middle finger infection Post-Op Diagnosis: left middle finger infection, high grade extensor tendon tear and involvement of PIP joint I identified the patient and participated in the time-out.: Yes Procedure Operation Date: 04/24/24 07:30 Actual Procedures p Irrigation and Debridement of left middle finger, deep; LM extensor tendon repair(Left) - Jc Hilliard MD Surgeon Jc Hilliard MD Chicken Stuffer n/a Estimated Blood Loss 15 Findings See Below Non-healing lac adjacent to L MF PIP, with serosanguineous drainage. 80 % tear extensor tendon over PIP joint. Fibrinous tissue noted along soft tissue and PIP joint. No zara purulence. Bone & articular cartilage were intact. Fluids 700 cc Specimens L MF C&S Deep, soft tissue for pathology Anesthesia Type General Complications none Indications The patient had a draining wound from there left middle finger (MF) that appears infected and not responding to IV antibiotics. The patient understands the risks of surgery, which include but are not limited to: bleeding, infection, re- operation, damage to nerves and arteries, continued pain and stiffness. The patient understands all of these instructions and explanations, all of their questions have been satisfactorily addressed. The patient has elected to proceed with surgery and the informed consent was signed. Description of Procedure The patient was taken to the Operating Room and placed in the supine position on the operating table. After general anesthetic was administered a multidisciplinary time-out was performed identifying my initials on the left MF as the correct and operative limb. Antibiotics were given just prior to brining back into OR per schedule. The left arm was prepped and draped in the usual Orthopaedic sterile fashion. The patient's laceration 3cm in length was marked as well as the planned zig-zag extension of the wound dorsally in both the proximal (4 cm) and distal (3 cm) direction. The skin edges were injected with a 50:50 mixture of 1% lidocaine and 0.5 % Marcaine with epi for a total of 10cc. The planned incision was carried down to the extensor mechanism. There was devitalized, necrotic soft tissue as well as the noted extensor tendon tear, exposing the PIP joint. Deep wound culture was taken in the exposed PIP joint. Devitalized soft tissue were removed and sample sent for pathology.The non-viable skin, soft tissue down and including in PIP joint were removed with a combination of sharp dissection with the scalpel, curette, and rongeur. The wound was copiously irrigated with at least 2.5 L normal saline. The extensor tendon was repaired with 2 modified Finn sutures using 3-0 Antibiotic impregnated Vicryl suture. Following irrigation and debridement there was healthy viable red beefy tissue that was bleeding. The skin were closed with 3-0 Nylon. The wound was covered Xeroform, 4 x 4's, Kerlix, and an Coban. The sponge and needle counts were correct. POST-OP: Patient was re-admitted to the Hospitalist service and continued on IV Abiotics until seen by infectious disease. I attest to the content of the Intraoperative Record and any orders documented therein. Any exceptions are noted below.
[2024-04-24] MEDS: ASPIRIN 81 MG ECTAB PO SCH (10:28)
[2024-04-24] MEDS: LANTUS PER UNIT CHARGE SQ SCH (10:29)
--- NOTE | 2024-04-24 10:58 | Anesthesiology Progress Note ---
Date of Service April 24, 2024 Anesthesia Post Procedure Vital Signs Vital Signs: Temp Pulse Pulse Resp BP Pulse Ox O2 Del Method 04/24/24 10:36 36.7 C 70 16 166/79 H 95 Room Air 04/24/24 10:08 36.7 C 73 16 157/81 H 96 Room Air 04/24/24 09:55 36.7 C 63 15 151/80 H 96 Room Air 04/24/24 09:50 67 12 152/82 H 96 Room Air 04/24/24 09:40 77 17 156/86 H 95 Room Air 04/24/24 09:30 73 17 167/83 H 99 Oxymask 04/24/24 09:23 36.4 C L 75 12 159/78 H 97 Oxymask 04/24/24 07:15 36.6 C 69 199/108 H 96 Room Air 04/24/24 07:00 177/98 H 04/23/24 20:48 36.6 C 57 L 18 184/98 H 97 Room Air 04/23/24 18:00 36.4 C L 58 L 16 205/100 H 98 Room Air 04/23/24 16:15 52 L 20 169/93 H 94 Room Air 04/23/24 14:07 73 18 181/103 H 97 Room Air O2 Flow Rate 04/24/24 10:36 04/24/24 10:08 04/24/24 09:55 0 04/24/24 09:50 0 04/24/24 09:40 0 04/24/24 09:30 4 04/24/24 09:23 8 04/24/24 07:15 04/24/24 07:00 04/23/24 20:48 04/23/24 18:00 04/23/24 16:15 04/23/24 14:07 Pain Intensity Left Hand: Pain Intensity: 4 Transfer of Care Handoff Completed per policy Notes Mental Status: alert / awake / arousable Patient Amnestic to Procedure: Yes Nausea / Vomiting: adequately controlled Pain: adequately controlled Airway Patency, RR, SpO2: stable & adequate BP & HR: stable & adequate Hydration State: stable & adequate Anesthetic Complications: no major complications apparent and Pt Satisfied with anesthetic care
[2024-04-24] MEDS ORDERED: INSULIN ASPART PER UNIT CHARGE SC SCH (12:00)
--- NOTE | 2024-04-24 14:45 | Hospitalist Progress Note ---
Date of Service April 24, 2024 Assessment & Plan (1) Cellulitis of left middle finger: Plan: Worsening infection on the left third and second fingers x 2 weeks; original injury on Wednesday 04/11. Prescribed Bactrim outpatient 04/21 w/ no relief. CBC reviewed 04/24 - no leukocytosis BMP reviewed 04/24 - stable. Continue Zosyn and Daptomycin prelim cultures w/ staph aureus infx MRSA swab negative but continue Dapto until cultures finalize. Ortho consulted - s/p I&D 04/24 recommending continuing IV abx AM CBC, BMP (2) Diabetes mellitus type 1, controlled, with complications: Plan: A1c 04/24: 6.9% Patient is currently on Lantus 24u QAM Dose reduced to Lantus 10 u BID while inpatient SSI; with target BSG range 110-140mg/dL, CF 35, carb ratio 11 T1DM diet BSG ACHS Adjust regimen as needed Plan Chronic conditions: HTN: continue Telmisartan HLD: hold statin while on daptomycin Disposition: Obs -admit to [facility] Full code T1DM diet VTE PPx: Low risk, encourage ambulation, SCD's Admission and Anticipated Discharge Date Admission Date: April 23, 2024 Subjective Patient seen and examined following his surgery this morning. patient reports to be feeling well. He reports minimal pain in his finger. Denies any additional complaints. He is anxious to return home but understandable that he requires IV abx currently. Physical Exam Constitutional: WD/WN, vitals as above Eyes: PERRL, conjunctivae normal, anicteric sclerae Respiratory: breathing unlabored Cardiovascular: well perfused Psychiatric: A+Ox3, euthymic affect Results & Data Results & Data Vital Signs (Past 12 Hours) Vital Signs Temp Pulse Pulse Resp BP Pulse Ox O2 Del Method 04/24/24 12:02 37.0 C 73 16 158/105 H 96 Room Air 04/24/24 11:09 36.8 C 80 18 155/84 H 95 Room Air 04/24/24 10:36 36.7 C 70 16 166/79 H 95 Room Air 04/24/24 10:08 36.7 C 73 16 157/81 H 96 Room Air 04/24/24 09:55 36.7 C 63 15 151/80 H 96 Room Air 04/24/24 09:50 67 12 152/82 H 96 Room Air 04/24/24 09:40 77 17 156/86 H 95 Room Air 04/24/24 09:30 73 17 167/83 H 99 Oxymask 04/24/24 09:23 36.4 C L 75 12 159/78 H 97 Oxymask 04/24/24 07:15 36.6 C 69 199/108 H 96 Room Air 04/24/24 07:00 177/98 H O2 Flow Rate 04/24/24 12:02 04/24/24 11:09 04/24/24 10:36 04/24/24 10:08 04/24/24 09:55 0 04/24/24 09:50 0 04/24/24 09:40 0 04/24/24 09:30 4 04/24/24 09:23 8 04/24/24 07:15 04/24/24 07:00 PG Care Time/CCT Total # of Minutes Spent Total Time Spent with Patient: Total time spent is greater than 50% in coordination of care (as documented) at patient's floor/unit and/or counseling patient: Coding Level of Care Code 53953 SUB INP/OBS CARE 2/35MIN Diagnoses Cellulitis of left middle finger L03.012 Diabetes mellitus type 1, controlled, with complications E10.8
[2024-04-24] MEDS: ACETAMINOPHEN 325 MG TAB PO PRN (16:55)
[2024-04-25 05:46] LABS: Basophils # (auto) 0.04 K/uL (0.00-0.20); Basophils % (auto) 0.5 %; Eosinophils # (auto) 0.19 K/uL (0.00-0.50); Eosinophils % (auto) 2.5 %; Hematocrit (blood only) 38.7 % (42.0-52.0); Hemoglobin 13.3 g/dl (14.0-18.0); Immature Granulocytes # (auto) 0.02 K/uL (0.01-0.20); Immature Granulocytes % (auto) 0.3 %; Lymphocytes # (auto) 1.22 K/uL (1.20-3.40); Lymphocytes % (auto) 15.9 %; Mean Corpuscular Hemoglobin 30.3 pg (25.0-34.0); Mean Corpuscular Hgb Conc 34.4 g/dL (32.0-36.0); Mean Corpuscular Volume 88.2 fL (80.0-100.0); Mean Platelet Volume 10.2 fL (9.4-12.4); Monocytes # (auto) 0.66 K/uL (0.11-0.59); Monocytes % (auto) 8.6 %; Neutrophils # (auto) 5.55 K/uL (1.40-6.50); Neutrophils % (auto) 72.2 %; Platelet Count 183 K/uL (130-400); RDW Coefficient of Variation 12.5 % (11.5-14.5); RDW Standard Deviation 40.7 fL (36.4-46.3); Red Blood Count 4.39 M/uL (4.70-6.10); White Blood Count 7.68 K/ul (4.8-10.8)
[2024-04-25 05:56] LABS: BUN Creatinine Ratio 22.7 (10-20); Calcium 8.6 mg/dl (8.6-10.3); Creatinine Clr Calc Pharmacy 147.8 ml/min; Potassium 3.9 mmol/L (3.5-5.1)
--- NOTE | 2024-04-25 08:16 | Orthopedic Progress Note ---
Date of Service April 25, 2024 Assessment & Plan (1) Cellulitis of left middle finger: Plan: POD #1 s/p I&D L MF, extensor tendon repair, doing as well as expected. Resume diet. Dressing changed, today, change daily. Continue pain control. Spoke with ID, they will be unable to see today, recommending Continued IV antibiotics due to joint involvement, followed by oral antibiotics for min of 6 weeks. Will need a PICC line D/C planning. Continue care per primary service. Admission and Anticipated Discharge Date Admission Date: April 23, 2024 Subjective Wants to go home Physical Exam Physical Exam: L MF: BCR < 2 sec. Sensation to light touch intact distally. decreased + swelling & erythema of the dorsal finger centered around the PIP joint. Incision is clean, intact, minimal blood drainage most proximal aspect. Minimal tenderness along flexor tendons. No pain with extension of the digit. Results & Data Vital Signs (Past 12 Hours) Vital Signs Temp Pulse Resp BP Pulse Ox O2 Del Method 04/25/24 07:04 36.8 C 68 18 164/89 H 97 Room Air 04/25/24 02:59 36.5 C 62 16 161/82 H 96 Room Air 04/24/24 23:04 36.4 C L 75 16 142/71 H 98 Room Air Laboratory Results 04/25/24 04/25/24 04/24/24 Range/Units 07:36 05:17 20:09 WBC 7.68 (4.8-10.8) K/ul RBC 4.39 L (4.70-6.10) M/uL Hgb 13.3 L (14.0-18.0) g/dl Hct 38.7 L (42.0-52.0) % MCV 88.2 (80.0-100.0) fL MCH 30.3 (25.0-34.0) pg MCHC 34.4 (32.0-36.0) g/dL RDW Std Deviation 40.7 (36.4-46.3) fL RDW Coeff of [place] 12.5 (11.5-14.5) % Plt Count 183 (130-400) K/uL MPV 10.2 (9.4-12.4) fL Immature Gran % (Auto) 0.3 % Neut % (Auto) 72.2 % Lymph % (Auto) 15.9 % [place] % (Auto) 8.6 % Eos % (Auto) 2.5 % Baso % (Auto) 0.5 % Neut # (Auto) 5.55 (1.40-6.50) K/uL Lymph # (Auto) 1.22 (1.20-3.40) K/uL [place] # (Auto) 0.66 H (0.11-0.59) K/uL Eos # (Auto) 0.19 (0.00-0.50) K/uL Baso # (Auto) 0.04 (0.00-0.20) K/uL Immature Gran # (Auto) 0.02 (0.01-0.20) K/uL Sodium 136 (136-145) mmol/L Potassium 3.9 (3.5-5.1) mmol/L Chloride 104 (98-107) mmol/L Carbon Dioxide 26 (21-32) mmol/L Anion Gap 6 (3-11) BUN 17 (6-23) mg/dl Creatinine 0.75 (0.6-1.4) mg/dl Est Cr Clr Drug Dosing 147.8 ml/min eGFR 103.95 BUN/Creatinine Ratio 22.7 H (10-20) Glucose 225 H (70-99(Fasting)) mg/dl POC Glucose 180 H 211 H (70-99) mg/dl Calcium 8.6 (8.6-10.3) mg/dl Nasal Screen MRSA (PCR) (Negative) 04/24/24 04/24/24 04/24/24 Range/Units 16:29 11:43 10:36 WBC (4.8-10.8) K/ul RBC (4.70-6.10) M/uL Hgb (14.0-18.0) g/dl Hct (42.0-52.0) % MCV (80.0-100.0) fL MCH (25.0-34.0) pg MCHC (32.0-36.0) g/dL RDW Std Deviation (36.4-46.3) fL RDW Coeff of [place] (11.5-14.5) % Plt Count (130-400) K/uL MPV (9.4-12.4) fL Immature Gran % (Auto) % Neut % (Auto) % Lymph % (Auto) % [place] % (Auto) % Eos % (Auto) % Baso % (Auto) % Neut # (Auto) (1.40-6.50) K/uL Lymph # (Auto) (1.20-3.40) K/uL [place] # (Auto) (0.11-0.59) K/uL Eos # (Auto) (0.00-0.50) K/uL Baso # (Auto) (0.00-0.20) K/uL Immature Gran # (Auto) (0.01-0.20) K/uL Sodium (136-145) mmol/L Potassium (3.5-5.1) mmol/L Chloride (98-107) mmol/L Carbon Dioxide (21-32) mmol/L Anion Gap (3-11) BUN (6-23) mg/dl Creatinine (0.6-1.4) mg/dl Est Cr Clr Drug Dosing ml/min eGFR BUN/Creatinine Ratio (10-20) Glucose (70-99(Fasting)) mg/dl POC Glucose 130 H 174 H (70-99) mg/dl Calcium (8.6-10.3) mg/dl Nasal Screen MRSA (PCR) Negative (Negative) 04/24/24 Range/Units 09:28 WBC (4.8-10.8) K/ul RBC (4.70-6.10) M/uL Hgb (14.0-18.0) g/dl Hct (42.0-52.0) % MCV (80.0-100.0) fL MCH (25.0-34.0) pg MCHC (32.0-36.0) g/dL RDW Std Deviation (36.4-46.3) fL RDW Coeff of [place] (11.5-14.5) % Plt Count (130-400) K/uL MPV (9.4-12.4) fL Immature Gran % (Auto) % Neut % (Auto) % Lymph % (Auto) % [place] % (Auto) % Eos % (Auto) % Baso % (Auto) % Neut # (Auto) (1.40-6.50) K/uL Lymph # (Auto) (1.20-3.40) K/uL [place] # (Auto) (0.11-0.59) K/uL Eos # (Auto) (0.00-0.50) K/uL Baso # (Auto) (0.00-0.20) K/uL Immature Gran # (Auto) (0.01-0.20) K/uL Sodium (136-145) mmol/L Potassium (3.5-5.1) mmol/L Chloride (98-107) mmol/L Carbon Dioxide (21-32) mmol/L Anion Gap (3-11) BUN (6-23) mg/dl Creatinine (0.6-1.4) mg/dl Est Cr Clr Drug Dosing ml/min eGFR BUN/Creatinine Ratio (10-20) Glucose (70-99(Fasting)) mg/dl POC Glucose 162 H (70-99) mg/dl Calcium (8.6-10.3) mg/dl Nasal Screen MRSA (PCR) (Negative) Spec: [id number] Collected: 04/24/24 Received: 04/24/[address]: Jc Hilliard MD Copy To: Dami Cruz MD Source: Finger,Left Middle OV Order: Ordered: Aer/Yin Cult/Sm Comments: Comment 1. Left middle finger, deep. Procedure Result Verified Site Gram Stain Final 04/24/24 Gram Stain Result Many Polys No Organisms Seen Aero/Yin Cult PENDING
--- NOTE | 2024-04-25 14:14 | Hospitalist Progress Note ---
Date of Service April 25, 2024 Assessment & Plan (1) Cellulitis of left middle finger: Plan: Worsening infection on the left third and second fingers x 2 weeks; original injury on Wednesday 04/11. Prescribed Bactrim outpatient 04/21 w/ no relief. CBC reviewed 04/25 - no leukocytosis BMP reviewed 04/25- stable. Continue Zosyn and Daptomycin culture + for staph aureus Ortho consulted - s/p I&D 04/24 Discussed w/ ortho via [facility] text 04/25 - patient to remain in hospital for ID consult 04/26. Patient will likely require IV abx on discharge based on joint infx and culture results followed by lengthy duration of PO abx. PICC vs US guided line based on recommendations from IV. AM CBC, BMP (2) Diabetes mellitus type 1, controlled, with complications: Plan: A1c 04/24: 6.9% Patient is currently on Lantus 24u QAM Dose reduced to Lantus 10 u BID while inpatient SSI; with target BSG range 110-140mg/dL, CF 35, carb ratio 11 T1DM diet BSG ACHS Adjust regimen as needed Plan Chronic conditions: HTN: continue Telmisartan HLD: hold statin while on daptomycin Disposition: medical Full code T1DM diet VTE PPx: Low risk, encourage ambulation, SCD's Admission and Anticipated Discharge Date Admission Date: April 25, 2024 Subjective Patient seen and examined this morning. Patient doing well today and recovering from surgery well. patient frustrated w/ having to stay in the hospital but is understandable. Physical Exam Constitutional: WD/WN, vitals as above Eyes: PERRL, conjunctivae normal, anicteric sclerae Respiratory: breathing unlabored Cardiovascular: well perfused Psychiatric: A+Ox3, euthymic affect Results & Data Results & Data Vital Signs (Past 12 Hours) Vital Signs Temp Pulse Resp BP Pulse Ox O2 Del Method 04/25/24 07:04 36.8 C 68 18 164/89 H 97 Room Air 04/25/24 02:59 36.5 C 62 16 161/82 H 96 Room Air PG Care Time/CCT Total # of Minutes Spent Total Time Spent with Patient: Total time spent is greater than 50% in coordination of care (as documented) at patient's floor/unit and/or counseling patient: Coding Level of Care Code 39366 SUB INP/OBS CARE 2/35MIN Diagnoses Cellulitis of left middle finger L03.012 Diabetes mellitus type 1, controlled, with complications E10.8
[2024-04-26 06:25] LABS: Basophils # (auto) 0.04 K/uL (0.00-0.20); Basophils % (auto) 0.7 %; Eosinophils # (auto) 0.32 K/uL (0.00-0.50); Eosinophils % (auto) 5.3 %; Hematocrit (blood only) 38.8 % (42.0-52.0); Hemoglobin 13.4 g/dl (14.0-18.0); Immature Granulocytes # (auto) 0.02 K/uL (0.01-0.20); Immature Granulocytes % (auto) 0.3 %; Lymphocytes # (auto) 1.34 K/uL (1.20-3.40); Mean Corpuscular Hemoglobin 30.7 pg (25.0-34.0); Mean Corpuscular Hgb Conc 34.5 g/dL (32.0-36.0); Mean Platelet Volume 10.4 fL (9.4-12.4); Monocytes # (auto) 0.53 K/uL (0.11-0.59); Monocytes % (auto) 8.7 %; Neutrophils # (auto) 3.84 K/uL (1.40-6.50); Platelet Count 178 K/uL (130-400); RDW Coefficient of Variation 12.5 % (11.5-14.5); RDW Standard Deviation 41.1 fL (36.4-46.3); Red Blood Count 4.36 M/uL (4.70-6.10); White Blood Count 6.09 K/ul (4.8-10.8)
[2024-04-26 06:40] LABS: BUN Creatinine Ratio 21.7 (10-20); C Reactive Protein 1.82 mg/dl (0-0.5); Calcium 8.7 mg/dl (8.6-10.3); Creatinine Clr Calc Pharmacy 120.5 ml/min; Potassium 4.6 mmol/L (3.5-5.1)
--- NOTE | 2024-04-26 10:45 | Orthopedic Progress Note ---
Date of Service April 26, 2024 Assessment & Plan (1) Cellulitis of left middle finger: Plan: POD #2 s/p I&D L MF, extensor tendon repair, doing as well as expected. Dressing changed, today, change daily with Xeroform, 4x4s, Kerlix and Coban Continue pain control as needed Dr Hilliard spoke with ID, ID will be seeing today. Recommending Continued IV antibiotics due to joint involvement, followed by oral antibiotics for min of 6 weeks total. Will need a PICC line for IV Abx D/C planning Continue care per primary service Follow-up in our office in 1 week for dressing change/wound check. Orthopedically stable for discharge, will sign off for now, please Stanton text with any questions or concerns Admission and Anticipated Discharge Date Admission Date: April 25, 2024 Subjective Patient was seen and examined at chair side. He reports that he is doing well. Pain is controlled. He has no questions or concerns this morning. He is eager to be released. Physical Exam Physical Exam: Dressing was taken down. Incision is well-approximated with sutures. No puslike drainage. There is some bloody drainage. There are some surrounding erythema but per patient it looks exceptionally better than where it was and his edema has improved. He is able to wiggle that finger at all joints. Results & Data Vital Signs (Past 12 Hours) Vital Signs Temp Pulse Resp BP Pulse Ox O2 Del Method 04/26/24 09:11 Room Air 04/26/24 07:15 36.7 C 52 L 16 179/95 H 94 Room Air Laboratory Results 04/26/24 04/26/24 04/25/24 Range/Units 07:33 05:41 20:54 WBC 6.09 (4.8-10.8) K/ul RBC 4.36 L (4.70-6.10) M/uL Hgb 13.4 L (14.0-18.0) g/dl Hct 38.8 L (42.0-52.0) % MCV 89.0 (80.0-100.0) fL MCH 30.7 (25.0-34.0) pg MCHC 34.5 (32.0-36.0) g/dL RDW Std Deviation 41.1 (36.4-46.3) fL RDW Coeff of [place] 12.5 (11.5-14.5) % Plt Count 178 (130-400) K/uL MPV 10.4 (9.4-12.4) fL Immature Gran % (Auto) 0.3 % Neut % (Auto) 63.0 % Lymph % (Auto) 22.0 % [place] % (Auto) 8.7 % Eos % (Auto) 5.3 % Baso % (Auto) 0.7 % Neut # (Auto) 3.84 (1.40-6.50) K/uL Lymph # (Auto) 1.34 (1.20-3.40) K/uL [place] # (Auto) 0.53 (0.11-0.59) K/uL Eos # (Auto) 0.32 (0.00-0.50) K/uL Baso # (Auto) 0.04 (0.00-0.20) K/uL Immature Gran # (Auto) 0.02 (0.01-0.20) K/uL ESR 23 H (0-20) mm/hr Sodium 138 (136-145) mmol/L Potassium 4.6 (3.5-5.1) mmol/L Chloride 104 (98-107) mmol/L Carbon Dioxide 27 (21-32) mmol/L Anion Gap 7 (3-11) BUN 20 (6-23) mg/dl Creatinine 0.92 (0.6-1.4) mg/dl Est Cr Clr Drug Dosing 120.5 ml/min eGFR 95.82 BUN/Creatinine Ratio 21.7 H (10-20) Glucose 225 H (70-99(Fasting)) mg/dl POC Glucose 233 H 139 H (70-99) mg/dl Calcium 8.7 (8.6-10.3) mg/dl C-Reactive Protein 1.82 H (0-0.5) mg/dl 04/25/24 04/25/24 Range/Units 16:31 11:32 WBC (4.8-10.8) K/ul RBC (4.70-6.10) M/uL Hgb (14.0-18.0) g/dl Hct (42.0-52.0) % MCV (80.0-100.0) fL MCH (25.0-34.0) pg MCHC (32.0-36.0) g/dL RDW Std Deviation (36.4-46.3) fL RDW Coeff of [place] (11.5-14.5) % Plt Count (130-400) K/uL MPV (9.4-12.4) fL Immature Gran % (Auto) % Neut % (Auto) % Lymph % (Auto) % [place] % (Auto) % Eos % (Auto) % Baso % (Auto) % Neut # (Auto) (1.40-6.50) K/uL Lymph # (Auto) (1.20-3.40) K/uL [place] # (Auto) (0.11-0.59) K/uL Eos # (Auto) (0.00-0.50) K/uL Baso # (Auto) (0.00-0.20) K/uL Immature Gran # (Auto) (0.01-0.20) K/uL ESR (0-20) mm/hr Sodium (136-145) mmol/L Potassium (3.5-5.1) mmol/L Chloride (98-107) mmol/L Carbon Dioxide (21-32) mmol/L Anion Gap (3-11) BUN (6-23) mg/dl Creatinine (0.6-1.4) mg/dl Est Cr Clr Drug Dosing ml/min eGFR BUN/Creatinine Ratio (10-20) Glucose (70-99(Fasting)) mg/dl POC Glucose 198 H 237 H (70-99) mg/dl Calcium (8.6-10.3) mg/dl C-Reactive Protein (0-0.5) mg/dl Microbiology 04/24/24 08:16 Gram Stain - Final Finger,Left Middle Aerobic and Anaerobic Culture - Preliminary No growth to date. 04/23/24 14:32 Gram Stain - Final Finger Aerobic and Anaerobic Culture - Preliminary Staphylococcus aureus
--- NOTE | 2024-04-26 12:47 | Infectious Disease Consult ---
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 He initially nicked the finger on an angle abrasive grinder on . He washed it with tap water and felt that it began to heal. However on 04/19 he noted increasing swelling and erythema. He was prescribed Bactrim on 04/21. Despite antibiotics, edema progressed in addition to purulent drainage. He also noted decreased ability to extend and flex the finger. He denied any fever, chills, sweats, nausea, vomiting, sob or chest pain. 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 In the ED, temp 36.5, pulse 95, BP 215/113, O2 sats 97% on room air. Labs: WBC 7.07, platelets 170, BUN 14, creatinine 0.83, CRP 1.82, ESR 23. Hand x-ray showed soft tissue swelling about the long finger proximal phalanx. Large am ount of soft tissue swelling about the dorsum of the hand. He was evaluated by orthopedics and found to have a high grade extensor tendon tear with involvement of the PIP joint. He underwent irrigation and debridement of the left middle finger and left middle finger extensor tendon repair on 04/24/2024. Noted a nonhealing laceration adjacent to the left middle finger PIP with serosanguineous drainage. 80% tear of the extensor tendon over the PIP joint. Fibrinous tissue noted along the soft tissue and PIP joint. No zara purulence. Bone and articular cartilage were intact. Deep cultures of the left middle finger obtained as well as pathology. Intraoperative cultures growing MSSA so far. He is currently on Zosyn. Infectious disease consulted for left middle finger possible PIP joint infection. Microbiology Intraoperative culturesleft finger 04/23 (aerobic) MSSA (Preliminary) Intraoperative culturesleft middle finger deep 04/23(rare Staph aureussusceptibilities pending (preliminary) Antibiotics Ceftriaxone 04/23 Cefazolin / Daptomycin 04/23ongoing Zosyn 04/23ongoing #Left middle finger SSTI s/p trauma, possible [place] septic joint infection - joint exposed per d/w Ortho ( Dr Hilliard ) for several days and c/f joint infection - intra op cultures with MSSA so far - Pending Pathology # DM1 Discussion: I discussed the case with orthopedic surgery. There is some concern for [place] septic joint infection given the duration the the wound open and joint exposed. Would treat for a Total of 6 weeks of antibiotics from OR to include: 4 weeks IV and hen step down to oral antibiotics for 2 weeks Recomendations: Discontinued Zosyn and Daptomycin Started Cefazolin 2 g iv Q 8 hours for 4 weeks from OR ( 04/23/24-05/21/24) FOLLOWED BY cefadroxil 500 mg PO [id number] (05/22/24-06/04/24) Follow up final OR culture to ensure no other Organisms and only MSSA growing Follow up pathology. Check Weekly cbc with diff, bmp, lft, esr, crp Follow up with orthopedics Establish local ID care. Discussed with ortho, hospitalist team and patient Thank you for this consult. ID will sign off. Please call with questions or if another organism grows in intraop culture other than MSSA or if bone pathology positive for osteo. Shawna Alvarez MD, MPH Infectious Disease [facility], [facility] Call [phone] with questions Consultation Information Consultation was provided via telemedicine using two-way real-time interactive telecommunication between the patient and the telemedicine provider. For the duration of the visit, the provider was performing the assessment from a different facility than the patient. This includesuse of bluetooth stethoscope forauscultationperformed by the telepresenter that the telemedicine provider can hear if described in the physical exam. Credit Administration Specialist contact information: Please call [facility] Call Center . (Phone Number For Physician Use Only) After establishing a telemedicine visit, patient was: Patient was verified with two unique identifiers Time Spent with Patient: Initial => 75 min History of Present Illness Reason for Consultation: Left middle finger PIP joint infection Requesting Physician: Jc Hilliard MD Attending Physician: Chelsi Travis MD History of Present Illness . He washed it with tap water and felt that it began to heal. However on 04/19 he noted increasing swelling and erythema. He was prescribed Bactrim on 04/21. Despite antibiotics, edema progressed in addition to purulent drainage. He also noted decreased ability to extend and flex the finger. He denied any fever, chills, sweats, nausea, vomiting, sob or chest pain. 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 In the ED, temp 36.5, pulse 95, BP 215/113, O2 sats 97% on room air. Labs: WBC 7.07, platelets 170, BUN 14, creatinine 0.83, CRP 1.82, ESR 23. Hand x-ray showed soft tissue swelling about the long finger proximal phalanx. Large amount of soft tissue swelling about the dorsum of the hand. He was evaluated by orthopedics and found to have a high grade extensor tendon tear with involvement of the PIP joint. He underwent irrigation and debridement of the left middle finger and left middle finger extensor tendon repair on 04/24/2024. Noted a nonhealing laceration adjacent to the left middle finger PIP with serosanguineous drainage. 80% tear of the extensor tendon over the PIP joint. Fibrinous tissue noted along the soft tissue and PIP joint. No zara purulence. Bone and articular cartilage were intact. Deep cultures of the left middle finger obtained as well as pathology. Intraoperative cultures growing MSSA so far. He is currently on Zosyn. Infectious disease consulted for left middle finger possible PIP joint infection. Allergies Allergy/AdvReac Type Severity Reaction Status Date / Time No Known Allergies Allergy Unverified 04/23/24 13:14 Home Medications Medication Instructions Recorded Confirmed Type blood sugar diagnostic (OneTouch #50 ea 06/02/23 12/19/23 Rx Verio test strips) lancets 30 gauge (OneTouch Delica #100 ea 06/02/23 12/19/23 Rx Plus Lancet) pen needle, diabetic 32 gauge x #50 ea 06/02/23 12/19/23 Rx 5/32" blood sugar diagnostic (Contour 08/22/23 12/19/23 History Next Test Strips) insulin aspart U-100 100 unit/mL 1 sliding scale dose subcut 08/22/23 04/23/24 History (3 mL) subcutaneous pen USEASDIRECTD multivitamin 1 tab PO DAILY 08/22/23 04/23/24 History insulin glargine 100 unit/mL (3 24 unit (0.24 mL) subcut QAM #30 mL 03/25/24 04/23/24 Rx mL) subcutaneous pen (Basaglar KwikPen U-100 Insulin) aspirin 81 mg tablet,delayed 81 mg PO DAILY 04/23/24 04/23/24 History release rosuvastatin 10 mg tablet 10 mg PO HS 04/23/24 04/23/24 History sulfamethoxazole 800 2 tab PO BID 04/23/24 04/23/24 History mg-trimethoprim 160 mg tablet telmisartan 80 mg tablet 80 mg PO DAILY 04/23/24 04/23/24 History Patient History Medical History COVID Pneumonia due to COVID-19 virus Acute dehydration Nausea & vomiting [place] (acute kidney injury) DKA (diabetic ketoacidosis) DM2 (diabetes mellitus, type 2) Dx. 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 Pertinent positives as per HPI. Physical Exam Physical Exam: GeneralNAD Neck- supple HEENT- AT/NC, anicteric sclera Lungsno increased work of breathing CardiacRRR Abdomensoft Extremitiesleft middle finger wrapped; able to move it slightly. Mild erythema. Pictures reviewed. Left index finger with scabbed laceration at the PIP Neurologyawake alert oriented x 3 Psychcooperative, normal mood/affect Results & Data Vital Signs (Past 12 Hours) Vital Signs Temp Pulse Resp BP Pulse Ox O2 Del Method 04/26/24 09:11 Room Air 04/26/24 07:15 36.7 C 52 L 16 179/95 H 94 Room Air Laboratory Results Laboratory Results - last 48 hr 04/24/24 04/24/24 04/25/24 16:29 20:09 05:17 WBC 7.68 RBC 4.39 L Hgb 13.3 L Hct 38.7 L MCV 88.2 MCH 30.3 MCHC 34.4 RDW Std Deviation 40.7 RDW Coeff of Davon 12.5 Plt Count 183 MPV 10.2 Immature Gran % (Auto) 0.3 Neut % (Auto) 72.2 Lymph % (Auto) 15.9 Sargent % (Auto) 8.6 Eos % (Auto) 2.5 Baso % (Auto) 0.5 Neut # (Auto) 5.55 Lymph # (Auto) 1.22 Sargent # (Auto) 0.66 H Eos # (Auto) 0.19 Baso # (Auto) 0.04 Immature Gran # (Auto) 0.02 ESR Sodium 136 Potassium 3.9 Chloride 104 Carbon Dioxide 26 Anion Gap 6 BUN 17 Creatinine 0.75 Est Cr Clr Drug Dosing 147.8 eGFR 103.95 BUN/Creatinine Ratio 22.7 H Glucose 225 H POC Glucose 130 H 211 H Calcium 8.6 C-Reactive Protein 04/25/24 04/25/24 04/25/24 07:36 11:32 16:31 WBC RBC Hgb Hct MCV MCH MCHC RDW Std Deviation RDW Coeff of Davon Plt Count MPV Immature Gran % (Auto) Neut % (Auto) Lymph % (Auto) Sargent % (Auto) Eos % (Auto) Baso % (Auto) Neut # (Auto) Lymph # (Auto) Sargent # (Auto) Eos # (Auto) Baso # (Auto) Immature Gran # (Auto) ESR Sodium Potassium Chloride Carbon Dioxide Anion Gap BUN Creatinine Est Cr Clr Drug Dosing eGFR BUN/Creatinine Ratio Glucose POC Glucose 180 H 237 H 198 H Calcium C-Reactive Protein 04/25/24 04/26/24 04/26/24 20:54 05:41 07:33 WBC 6.09 RBC 4.36 L Hgb 13.4 L Hct 38.8 L MCV 89.0 MCH 30.7 MCHC 34.5 RDW Std Deviation 41.1 RDW Coeff of Davon 12.5 Plt Count 178 MPV 10.4 Immature Gran % (Auto) 0.3 Neut % (Auto) 63.0 Lymph % (Auto) 22.0 Sargent % (Auto) 8.7 Eos % (Auto) 5.3 Baso % (Auto) 0.7 Neut # (Auto) 3.84 Lymph # (Auto) 1.34 Sargent # (Auto) 0.53 Eos # (Auto) 0.32 Baso # (Auto) 0.04 Immature Gran # (Auto) 0.02 ESR 23 H Sodium 138 Potassium 4.6 Chloride 104 Carbon Dioxide 27 Anion Gap 7 BUN 20 Creatinine 0.92 Est Cr Clr Drug Dosing 120.5 eGFR 95.82 BUN/Creatinine Ratio 21.7 H Glucose 225 H POC Glucose 139 H 233 H Calcium 8.7 C-Reactive Protein 1.82 H 04/26/24 11:20 WBC RBC Hgb Hct MCV MCH MCHC RDW Std Deviation RDW Coeff of Davon Plt Count MPV Immature Gran % (Auto) Neut % (Auto) Lymph % (Auto) Sargent % (Auto) Eos % (Auto) Baso % (Auto) Neut # (Auto) Lymph # (Auto) Sargent # (Auto) Eos # (Auto) Baso # (Auto) Immature Gran # (Auto) ESR Sodium Potassium Chloride Carbon Dioxide Anion Gap BUN Creatinine Est Cr Clr Drug Dosing eGFR BUN/Creatinine Ratio Glucose POC Glucose 249 H Calcium C-Reactive Protein Diagnostic Findings Microbiology 04/24/24 08:16 Finger,Left Middle Gram Stain - Final 04/24/24 08:16 Finger,Left Middle Aerobic and Anaerobic Culture - Preliminary No growth to date. 04/23/24 14:32 Finger Gram Stain - Final 04/23/24 14:32 Finger Aerobic and Anaerobic Culture - Preliminary Staphylococcus aureus Medications Administered Home Medications Medication Instructions Recorded Confirmed Last Taken blood sugar diagnostic (OneTouch #50 ea 06/02/23 12/19/23 Unknown Verio test strips) lancets 30 gauge (OneTouch Delica #100 ea 06/02/23 12/19/23 Unknown Plus Lancet) pen needle, diabetic 32 gauge x #50 ea 06/02/23 12/19/23 Unknown " blood sugar diagnostic (Contour 08/22/23 12/19/23 Unknown Next Test Strips) insulin aspart U-100 100 unit/mL 1 sliding scale dose subcut 08/22/23 04/23/24 04/23/24 (3 mL) subcutaneous pen USEASDIRECTD multivitamin 1 tab PO DAILY 08/22/23 04/23/24 04/22/24 insulin glargine 100 unit/mL (3 24 unit (0.24 mL) subcut QAM #30 mL 03/25/24 04/23/24 04/23/24 mL) subcutaneous pen (Basaglar KwikPen U-100 Insulin) aspirin 81 mg tablet,delayed 81 mg PO DAILY 04/23/24 04/23/24 04/23/24 release rosuvastatin 10 mg tablet 10 mg PO HS 04/23/24 04/23/24 04/22/24 sulfamethoxazole 800 2 tab PO BID 04/23/24 04/23/24 04/23/24 mg-trimethoprim 160 mg tablet telmisartan 80 mg tablet 80 mg PO DAILY 04/23/24 04/23/24 04/23/24 Active Medications Generic Name Dose Route Start Last Admin Trade Name Freq PRN Reason Stop Dose Admin Acetaminophen 650 mg 04/23/24 18:06 04/24/24 16:55 Acetaminophen 325 Mg Tab PO 05/23/24 18:05 650 mg Q4H PRN Administration pain/fever Aspirin 81 mg 04/24/24 09:00 04/26/24 07:37 Aspirin 81 Mg Ectab PO 05/24/24 08:59 81 mg DAILY ADILSON Administration Daptomycin 400 mg/ Syringe 8 mls @ 4 mls/min 04/23/24 16:30 04/25/24 17:12 IV 04/30/24 16:29 4 mls/min Q24H ADILSON Administration Protocol Piperacillin Sod/Tazobactam Sod 4.5 gm in 100 mls @ 25 mls/hr 04/23/24 22:00 04/26/24 09:58 Zosyn IV 04/30/24 21:59 Infused Q8H ADILSON Infusion Protocol Insulin Aspart 0 units 04/24/24 11:30 04/26/24 12:07 Insulin Aspart Per Unit Charge SC 05/24/24 11:29 11 units ACHS ADILSON Administration Insulin Glargine 10 units 04/24/24 09:00 04/26/24 08:13 Lantus Per Unit Charge SQ 05/24/24 08:59 10 units BID ADILSON Administration Losartan Potassium 100 mg 04/24/24 09:00 04/26/24 07:37 Losartan Potassium 50 Mg Tab PO 05/24/24 08:59 100 mg DAILY ADILSON Administration
--- NOTE | 2024-04-26 17:22 | Hospitalist Progress Note ---
Date of Service April 26, 2024 Assessment & Plan (1) Cellulitis of left middle finger: Plan: Worsening infection on the left third and second fingers x 2 weeks; original injury on Wednesday 04/11. Prescribed Bactrim outpatient 04/21 w/ no relief. Ortho consulted - s/p I&D 04/[address] Hilliard - recommending IV abx with joint involvement - outpatient follow up one week after discharge Infectious disease consulted - dapto and zosyn discontinued - recommend ancef IV q8 x 4 weeks - weekly labs - follow up finalized cultures Consent for midline obtained, midline ordered. CM following for IV abx at d/c (2) Diabetes mellitus type 1, controlled, with complications: Plan: A1c 04/24: 6.9% Home dose: Lantus 24u QAM Dose reduced to Lantus 10 u BID while inpatient SSI; CF tightened 20--> 15 Plan Chronic conditions: HTN: continue Telmisartan HLD: statin resumed Disposition: continued inpatient stay, arranging IV abx VTE PPx: Low risk, encourage ambulation, SCD's Admission and Anticipated Discharge Date Admission Date: April 25, 2024 Supervising Physician Co-Signing Physician Notes PA Supervision Note: I did not personally see or examine the patient today, but I verified all tyler points of RADHA Moore's assessment and plan with the following exceptions/additions: None Subjective Patient revisited multiple times throughout the day, frustrated with having to be in the hospital this long. Pain in his finger is improving, reports good appetite Review of Systems Review of Systems: All systems reviewed & are unremarkable except as noted in Subjective Physical Exam 2 Physical Exam: General: NAD, VS as above Resp: normal respiratory effort, lungs clear to auscultation CV: RRR, no murmur, Extremities: left hand, middle finger appropriately wrapped, dress c/d/i, pt able to move finger slightly Neuro: A&O x3, Results & Data Results & Data Vital Signs (Past 12 Hours) Vital Signs Temp Pulse Resp BP Pulse Ox O2 Del Method 04/26/24 14:19 97.7 F 78 16 154/94 H 95 Room Air 04/26/24 09:11 Room Air 04/26/24 07:15 98.1 F 52 L 16 179/95 H 94 Room Air Laboratory Results CBC chemistry and CRP reviewed PG Care Time/CCT Total # of Minutes Spent Total Time Spent with Patient: Total time spent is greater than 50% in coordination of care (as documented) at patient's floor/unit and/or counseling patient: Coding Level of Care Code 39282 SUB INP/OBS CARE 3/50MIN Diagnoses Cellulitis of left middle finger L03.012 Diabetes mellitus type 1, controlled, with complications E10.8
[2024-04-26 20:47] VITALS: TEMP 98.1
[2024-04-26] MEDS: ROSUVASTATIN CALCIUM 10 MG TAB PO SCH (21:28)
[2024-04-26] MEDS: ceFAZolin 2000MG 2,000 MG/15 ML SYR IV SCH (21:32)
[2024-04-26] MEDS ORDERED: ceFAZolin 2000MG 2,000 MG/15 ML SYR IV SCH (22:00)
[2024-04-27 07:32] VITALS: RESP 16; O2SAT 95
--- NOTE | 2024-04-27 09:37 | Discharge Summary ---
Discharge Summary Date of Service April 27, 2024 Principal Dx & Hospital Course #1 = Principal Diagnosis (1) Cellulitis of left middle finger: Worsening infection on the left third and second fingers x 2 weeks; original injury on Wednesday 04/11. Prescribed Bactrim outpatient 04/21 w/ no relief. Ortho consulted - s/p I&D 04/[address] Hilliard - recommending IV abx with joint involvement - outpatient follow up one week after discharge - OR pathology without osteomyelitis Infectious disease consulted - dapto and zosyn discontinued - recommend ancef IV q8 x 4 weeks (04/23-05/21), then transition to cefadroxil 500mg PO q12 x2 weeks (05/22/24 - 06/04/24) - weekly labs - cbc with diff, CMP, ESR, CRP - follow up finalized cultures Midline was placed. Patient tolerated Ancef here and abx arranged through [facility]. Stable for discharge home with weekly labs (to PCP and Ortho). Referall to local ID placed at discharge as well. (2) Diabetes mellitus type 1, controlled, with complications: A1c 04/24: 6.9% Home dose: Lantus 24u QAM with SSI --> can continue this at discharge Plan Chronic conditions: HTN: continue Telmisartan HLD: statin resumed Disposition: discharge to home today Discussed case with Dr. Hilliard Notes For Next Care Provider Final wound culture is still pending and will need followed up to make sure nothing else grows/abx need to be changed. Weekly labs will need rx for PO abx in 4 weeks Medication Changes From Visit ancef 2g q8h x 4 weeks Admission HPI Per Admitting Provider Romel is a pleasant 59-year-old male with PMH of T1DM, HLD, and HTN. He presented on 04/23 for an infection on his left third finger. Patient originally injured his hand when he nicked it on an angle broach grinder on Wednesday 04/11. He reports that it was starting to heal on its own, but then began to swell this past Thursday 04/19. He was prescribed antibiotics outpatient (Bactrim) on Saturday 04/21, and began taping at that night. Despite this he has had worsening swelling and purulent drainage, and now has decreased ability to flex his finger. Drainage was serosanguineous up until yesterday when he became purulent. No history of MRSA infection. Patient took his regular morning medicine today, including his insulin; no recent change in medications other than starting Bactrim. NKDA. He reports the pain in his left middle fing er as 1/10 at present and 2.5/10 at worst. He does still exhibit some ability to bend it, but notes it is difficult due to his swelling. Patient denies smoking, tobacco use, recent alcohol use. 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 Patient is hypertensive 169/93 and mildly bradycardic at 52 bpm at time of admission; vitals otherwise stable. ED course: Daptomycin 40 mg IV Zosyn 4.5 g IV ROS: Patient endorses pain/numbness/tingling in the left second, third, and fourth fingers, and swelling/erythema in the third finger. Patient denies fever, chills, night-sweats, chest pain, SOB, cough, abdominal pain, N/V/D, or changes in urinary/bowel habits. Discharge Exam General: NAD, VS as above Resp: normal respiratory effort, lungs clear to auscultation CV: RRR, no murmur, Extremities: left hand, middle finger seen undressed, sutures in tact, healing appropiately. Neuro: A&O x3, Discharge Plan Discharge Items Patient Disposition: Home - Self-Care Reason For Visit: LEFT MIDDLE FINGER INFECTION Discharge Diagnosis: Left middle finger infection Activity: Resume your previous activity Weightbearing: Full weightbearing Non-emergency contact: Primary Care Provider and Specialist Call non-emergency contact if: you have any medication questions, your symptoms worsen and your temperature is above 101 Follow-up/Referrals: [facility] Unit ([facility]U) [Outside] - 05/24/24 8:00 am ( You have an appointment on 05/24/24 at 08:00 with an arrival time of 07:45 for removal of your PICC line. Please call [phone] if you need to change or cancel this appt. ) Thalia Vela [Primary Care Provider] - 05/10/24 2:20 pm (Follow up within 7- 10 days. Please arrive for appointment at 2:05) Nickolas Garcia DO [Physician] - (Infectious disease follow up ) Radha Abdi PA-C [Physician Assistant Foreman] - 05/04/24 9:00 am Diet: Carb Count or DM1 Addtl Attending Provider Instructions: Mr. Andersen, You were hospitalized after having worsening infection of your middle finger after injury. You were taking to the OR by Dr. Hilliard to have this drained and then were seen by infectious disease to tailor your antibiotic regiment. You will be continued on IV ancef x 4 weeks (04/23-05/21) and then will be followed by two weeks of oral antibiotics. At this time Infectious Disease is recommending cefadroxil 500mg q12H (05/22 -06/04/24). Your cultures have not finalized, if it changes that MRSA is growing in the final cultures your antibiotics will need to be changed. Your PCP and Ortho should be able to see these cultures. You will need weekly labs - a physical script has been provided for you to do so. Would recommend you get the first set this week. Results will be sent to PCP and Dr. Hilliard. You will need to follow closely with ID, PCP and Ortho. A referral has been made to a local infectious disease office. Their information is above (they also have a [place] Office) if you do not hear from them by Friday please give them a call. The midline catheter is to remain in place while you are receiving IV abx. I have attached information on how to care for this line. Please contact your PCP if you notice any redness/swelling/drainage or signs of infection. No changes to your diabetic medications. Take close monitoring of your sugars, if you notice they are routinely above 160 please contact your prescriber as higher blood sugars can lead to poor wound healing. No changes to your other home medications. ----- CONTACT YOUR PRIMARY CARE PROVIDER OR ORTHOPEDICS if you experience any of the following: Shortness of breath or difficulty breathing Fevers or chills Feeling tired with normal activity or experiencing dizziness or fainting Difficulty following your treatment plan, or difficulty taking medications - increased drainage from the wound, redness or swelling CALL 911 OR GO TO THE EMERGENCY DEPARTMENT if you experience any of the following: Severe abdominal pain or nausea/vomiting Severe chest pain, or chest pain that radiates (moves) to your jaw or arm Sudden, severe shortness of breath or difficulty breathing Thank you for allowing us to participate in your care. Addtl Valve Inspector Provider Instructions: Orthopedic discharge instructions: Daily dressing changes. Keep covered with bag or Press N' Seal during shower for 3-5 days, then you may get shower with it uncovered, letting warm soapy water run over top of your incision. Pat dry and redress after the shower. Do not apply any antibiotic ointments. No lifting greater than 5 pounds with affected hand Antibiotics and weekly labs per infectious disease Ice, elevate pain control with Tylenol/NSAIDs Follow-up in 1 week as scheduled for wound check/dressing change Continue to monitor for any signs of infection including increased pain, swelling, redness, puslike drainage, fevers or chills Please call our office with any questions or concerns at [phone] Pending Studies at Discharge: Yes (final cultures ) Stand-Alone Forms: [facility], Smoking Cessation Medications and DC Order Prescriptions: New cefazolin 1 gram recon soln 2 g IM Q8H 28 Days Qty: 25 0RF Continued insulin glargine [Basaglar KwikPen U-100 Insulin] 100 unit/mL (3 mL) insulin pen 24 unit subcut QAM Qty: 30 1RF multivitamin Tablet 1 tab PO DAILY insulin aspart U-100 100 unit/mL (3 mL) insulin pen 1 sliding scale dose subcut USEASDIRECTD Rx Instructions: Per carb count/correctional scale up to 15 units per day (DME) Contour Next Test Strips Strip See Rx Instructions .Route Rx Instructions: test 3 times daily (DME) lancets [OneTouch Delica Plus Lancet] 30 gauge misc See Rx Instructions .Route Qty: 100 0RF Rx Instructions: use five times daily (DME) pen needle, diabetic 32 gauge x 5/32" needle See Rx Instructions .Route Qty: 50 0RF Rx Instructions: As directed (DME) OneTouch Verio test strips Strip See Rx Instructions .Route Qty: 50 0RF Rx Instructions: to check 5x per day aspirin 81 mg Tablet,Delayed Release (Dr/Ec) 81 mg PO DAILY telmisartan 80 mg tablet 80 mg PO DAILY rosuvastatin 10 mg tablet 10 mg PO HS Discontinued sulfamethoxazole-trimethoprim 800-160 mg tablet 2 tab PO BID Rx Instructions: Start Date 04/21/24 x10 day supply Discharge Orders: Discharge Order (Routine); Ordered 04/27/24 Ordered By: Marissa Degroot/Other Patient Handouts: Midline Catheter Dc Admission Data Admit Date/Time: 04/25/24 09:19 Attending Provider: Chelsi Travis Admit Provider: Andrea Betancur Primary Care Provider: Thalia Vela Other Providers: Yisel Lopez; Sowmya Leon; Whitney Rodriguez; Shawna Alvarez; Mary Tellez; Kathryn Samson; Jc Hilliard; Dami Cruz Other Interventions: Discharge Summary Assessment (RN) Last Done: 04/27/24 09:56 Hospital Stay Data Consultations 04/23/24 15:56 ED Decision to Admit Stat 04/23/24 15:57 Consult Orthopedic Surgery Stat 04/24/24 09:24 Consult Infectious Diseases Routine Procedures Performed Operation Date: 04/24/24 07:30 Actual Procedures p Irrigation and Debridement of Left Middle Finger with Extensor Tendon Repair(Left) - Jc Hilliard MD Discharge Instructions Given to Patient (Per Discharging Provider) Mr. Andersen, Carmine were hospitalized after having worsening infection of your middle finger after injury. You were taking to the OR by Dr. Hilliard to have this drained and then were seen by infectious disease to tailor your antibiotic regiment. You will be continued on IV ancef x 4 weeks (04/23-05/21) and then will be followed by two weeks of oral antibiotics. At this time Infectious Disease is recommending cefadroxil 500mg q12H (05/22 -06/04/24). Your cultures have not finalized, if it changes that MRSA is growing in the final cultures your antibiotics will need to be changed. Your PCP and Ortho should be able to see these cultures. You will need weekly labs - a physical script has been provided for you to do so. Would recommend you get the first set this week. Results will be sent to PCP and Dr. Hilliard. You will need to follow closely with ID, PCP and Ortho. A referral has been made to a local infectious disease office. Their information is above (they also have a [place] Office) if you do not hear from them by Friday please give them a call. The midline catheter is to remain in place while you are receiving IV abx. I have attached information on how to care for this line. Please contact your PCP if you notice any redness/swelling/drainage or signs of infection. No changes to your diabetic medications. Take close monitoring of your sugars, if you notice they are routinely above 160 please contact your prescriber as higher blood sugars can lead to poor wound healing. No changes to your other home medications. ----- CONTACT YOUR PRIMARY CARE PROVIDER OR ORTHOPEDICS if you experience any of the following: Shortness of breath or difficulty breathing Fevers or chills Feeling tired with normal activity or experiencing dizziness or fainting Difficulty following your treatment plan, or difficulty taking medications - increased drainage from the wound, redness or swelling CALL 911 OR GO TO THE EMERGENCY DEPARTMENT if you experience any of the following: Severe abdominal pain or nausea/vomiting Severe chest pain, or chest pain that radiates (moves) to your jaw or arm Sudden, severe shortness of breath or difficulty breathing Thank you for allowing us to participate in your care. Supervising Physician Co-Signing Physician Notes RADHA Supervision Note: I did not personally see or examine the patient today, but I verified all tyler points of RADHA Moore's assessment and plan with the following exceptions/additions: Pt left before I could see him Total Time Total Time Spent Total Time Spent (In Minutes): Time spent day of discharge 40 minutes including direct patient care, medication reconciliation, documentation, review of labs and images, and coordination of care. Coding Level of Care Code 81756 INP/OBS DISCH >30 MIN Diagnoses Cellulitis of left middle finger L03.012 Diabetes mellitus type 1, controlled, with complications E10.8
[2024-04-27 10:01] VITALS: BP 154/94; PULSE 63
--- NOTE | 2024-04-27 10:24 | Orthopedic Progress Note ---
Date of Service April 27, 2024 Assessment & Plan (1) Cellulitis of left middle finger: Plan: s/p I&D L MF, extensor tendon repair, doing as well as expected. His dressing changed today by me. Nonstick adherent, gauze, and Coban were used. Change daily with 4x4s and Coban The patient may get the wound wet in the shower with light soap, and redress immediately after, keeping it dry throughout the day. Continue pain control as needed ID recommends continued IV antibiotics due to joint involvement, followed by oral antibiotics for min of 6 weeks total. PICC line has been placed. Waiting for confirmation from [facility] that antibiotics can be delivered this afternoon. If so, he may be discharged today. Continue care per primary service Follow-up in our office next week for dressing change/wound check. Orthopedically stable for discharge, will sign off for now, please [place] text with any questions or concerns Admission and Anticipated Discharge Date Admission Date: April 25, 2024 Subjective This 59-year-old male is seen today in his room. He is currently sitting in his bedside chair attending a Zoom meeting. He states his finger feels fine. He already changed his dressing this morning himself. He states there is minimal bleeding. He feels the redness has improved greatly. He would like to know when he can go home. No other complaints. Physical Exam Physical Exam: General: Well-developed, well-nourished, middle-aged male, in no acute distress. Sitting in a bedside chair. Alert and oriented. Conversive. Skin: Warm and dry with good turgor. No rashes. The left long finger has a d ressing in place. Upon removal, there is scant oozing from the surgical incision. Sutures are intact. Wound edges are well-approximated. Expected postoperative edema. No significant ecchymosis. He has some mild erythema present over the distal portion of the middle phalanx. He states that is the only remaining redness, and is much improved from previous. Musculoskeletal: The patient has intact motor function of the MCP, PIP, and DIP joints. Motion of the PIP is limited secondary to swelling. He does have intact flexion and extension of the DIP through isolation. There is no pain associated with this. Neurologic: Gross sensation is intact across all aspects of the tip of the finger by soft touch. Capillary refill is equal to the other digits. Results & Data Vital Signs (Past 12 Hours) Vital Signs Temp Pulse Pulse Resp BP BP Pulse Ox 04/27/24 09:56 36.7 C 63 58 L 16 173/92 H 154/94 H 95 04/27/24 07:29 36.7 C 58 L 16 173/92 H 95 O2 Del Method 04/27/24 09:56 04/27/24 07:29 Room Air Laboratory Results Glucose this morning was 192.
== END 2024-04-27 11:02 | disposition home or self-care (01) | DRG 580 ==
LOC: ED 10:07 → 3E 10:07 → SUATTDRO 17:00 → 3E 17:49 → SUATTDRO 04-25 09:19
DX: Z79.899 Other long term (current) drug therapy; M00.042 Staphylococcal arthritis, left hand; E78.5 Hyperlipidemia, unspecified; I10 Essential (primary) hypertension; W31.82XA Contact with other commercial machinery, initial encounter; Z79.82 Long term (current) use of aspirin; S61.211A Laceration without foreign body of left index finger without damage to nail, initial encounter; B95.61 Methicillin susceptible Staphylococcus aureus infection as the cause of diseases classified elsewhere; L03.012 Cellulitis of left finger; S56.424A Laceration of extensor muscle, fascia and tendon of left middle finger at forearm level, initial encounter; Z79.4 Long term (current) use of insulin; E10.8 Type 1 diabetes mellitus with unspecified complications